=== PATIENT | female | born 1975 | race Caucasian/White ===

== ENCOUNTER 2024-11-18 11:57 | Emergency (ER) | payer BC, SELFPAY ==
[2024-11-18] VITALS (14 sets, daily range): BP systolic 128–158; BP diastolic 62–109; PULSE 48–72; RESP 14–18; TEMP 36.5; O2SAT 97–100
--- NOTE | ~2024-11-18 | XR_ITS ---
Clinical Indication: Syncope PA and lateral views of the chest: Comparison: None Findings: The lungs are clear, without evidence of focal consolidation or pleural effusion. Cardiome diastinal silhouette is within normal limits. Bones and soft tissues are unremarkable. Impression: Normal chest. Reviewed, dictated and finalized at location . Impression: Normal chest.
--- NOTE | 2024-11-18 12:02 | ECG_ITS ---
Test Date: 2024-11-18 12:07:28 Measurements Intervals [place] Rate: 56 P: 20 [place]: 166 QRS: -29 QRSD: 103 T: 10 QT: 335 QTc: 324 Interpretive Statements SINUS BRADYCARDIA WITH SINUS ARRHYTHMIA POOR R WAVE PROGRESSION BORDERLINE T WAVE ABNORMALITY- ANTEROLAT/INF LEADS BORDERLINE ECG No previous ECG available for comparison Electronically Signed On 11-18-2024 12:50:43 CDT by Jackson Steel D.O.
[2024-11-18 12:38] LABS: Basophils Percent Auto 0.4 % (0.2-1.2); Eosinophils Percent Auto 0.4 % (0-4.4); Hematocrit 37.8 % (37.0-47.0); Hemoglobin 12.1 g/dL (12.0-15.0); Immature Granulocyte Absolute 0.02 K/mm3 (0.00-0.031); Immature Granulocyte Percent A 0.3 % (0-0.5); Lymphocytes Percent Auto 23.6 % (18.3-44.2); Mean Corpuscular Hemoglobin 30.1 pg (26-34); Mean Platelet Volume 9.7 fl (7.4-10.4); Monocytes Absolute Auto 0.3 K/mm3 (0.1-0.6); Monocytes Percent Auto 4.3 % (2.6-8.5); Neutrophils Absolute Auto 4.8 K/mm3 (1.3-6.7); Platelet Count Result 244 k/mm3 (150-375); Red Blood Count 4.02 M/mm3 (4.2-5.4); Red Cell Distribution Width 14.4 % (11.5-14.5); White Blood Count 6.8 K/mm3 (4.5-10.0)
[2024-11-18 12:47] LABS: Alanine Aminotransferase 12 U/L (6-35); Albumin Level 4.5 g/dL (3.5-5.1); Alkaline Phosphatase 74 U/L (38-126); Anion Gap 11 mmol/L (4-12); Aspartate Amino Transferase 20 U/L (14-36); Bilirubin,Total 0.3 mg/dL (0.2-1.3); Blood Urea Nitrogen 27 mg/dL (7-17); Calcium 9.5 mg/dL (8.4-10.2); Carbon Dioxide 22 mmol/L (22-30); Chloride 110 mmol/L (98-107); Estimated Glomerular Filt Rate 24; Glucose 101 mg/dL (65-110); Potassium 4.2 mmol/L (3.4-5.0); Sodium 143 mmol/L (137-145)
--- OUTSIDE RECORDS SUMMARY | 2024-11-18 13:15 | XMS_ITS | Encounter Summary ---
Author Organization [facility] Address [address] [place] [address] Phone Care Team Providers Care Trains Dispatcher Supervisor Name Role Phone Derrick Cain MD Primary Care Provider [phone] Reason for Visit * Reason Onset Date Comments Medication Refill 10/29/2024 Encounter Details Date Type Department Care Team (Late st Contact Info) Description 10/29/2024 Refill [facility] - Internal Medicine - [place] [address] [place] [address] Derrick Cain MD [address] [facility] [place] [address] Medication Refill Social History Tobacco Use Types Packs/Day Years Used Date Smoking Tobacco: Never Passive Smoke Exposure: Never Smokeless Tobacco: Never Alcohol Use Standard Drinks/Week Comments Never 0 (1 standard drink = 0.6 oz pur e alcohol) PHQ-2 Answer Date Recorded Total Score - Questions 1-9 0 07/23 Sexually Active Control Partners Comments Yes Comments No Sex and Gender Information Value Date Recorded Sex Assigned at Not on file Legal Sex Female 11:09 AM [employer] Gender Identity Not on file Sexual Orientation Not on file documented as of this encounter Miscellaneous Notes * Telephone Encounter - Jeana Canales RN - 10/29/2024 1:33 PM CDT Medication failed the protocol, provider to review and approve the medication order if appropriate. Requested Prescriptions Pending Prescriptions Disp Refills oxyCODONE-Acetaminophen (PERCOCET) 10-325 MG Tablet 28 Tablet 0 Sig: Take 1 Tablet by mouth 2 times daily as needed for Moderate or more severe pain or Severe pain. Not Delegated - Opioid Combinations Protocol Failed - 10/29/2024 1:33 PM Failed - This refill cannot be delegated Passed - Visit with relevant provider in past 12 months or upcoming 90 days Recent Visits Date Type Provider Dept 10/19/24 Office Visit Derrick Cain MD [facility] 08/18/24 Office Visit [facility] Showing recent visits within past 365 days and meeting all other requirements Future Appointments Date Type Provider Dept 01/13/25 Appointment Derrick Cain MD [facility] Showing future appointments within next 90 days and meeting all other requirements * Telephone Encounter - Rosa Srivastava - 10/29/2024 1:31 PM CDT Med rf Medication - Percocet Phone - [phone] Pharmacy - [facility] documented in this encounter Plan of Treatment Upcoming Encounters Date Type Department Care Team (Late st Contact Info) Description 11/27/2024 9:00 AM CDT Hospital Encounter [facility] [address] [place] [address] Jigar Castellanos MD [address] [address] 11/27/2024 9:00 AM CDT - 11/27/2024 9:30 AM CDT [facility] [address] [place] [address] Jigar Castellanos MD [address] [address] COLONOSCOPY 01/13/2025 8:00 AM CDT Office Visit [facility] - Internal Medicine [facility] [address] [place] [address] Derrick Cain MD [address] [place] [address] Scheduled Procedures Name Priority Associated Diagnoses Date/Ti me COLONOSCOPY SCREENING COLON CANCER 11/27/2024 9:00 AM CDT documented as of this encounter Visit Diagnoses Diagnosis Chronic neck pain Cervicalgia Chronic bilateral low back pain with right-sided sciatica documented in this encounter Additional Health Concerns Assessment Noted Time PHQ-9 Depression Total Score: 0 08/18/19 3:32 PM [employer] documented as of this encounter Care Teams Trains Dispatcher Supervisor Relationship Specialty Start Date End Date Derrick Cain MD [address] [place] [address] PCP - General Internal Medicine 08/18/24 documented as of this encounter
--- OUTSIDE RECORDS SUMMARY | 2024-11-18 13:15 | XMS_ITS | Clinical Summary ---
Author Organization [facility] Address [address] [place] [address] Phone Care Team Providers Care Automotive Salesperson Name Role Phone Derrick Cain MD Primary Care Provider [phone] Allergies Active Allergy Reactions Criticality Noted Date Comments Clonidine Other (see Comments) 03/22/2022 Hydrocodone-Acetaminophen Itching,Other (see Comments) Medium 12/26/2009 Lisinopril Other (see Comments) 03/22/2022 Medications ondansetron (ZOFRAN-ODT) 4 MG TABLET DISPERSIBLE Take 4 mg by mouth every 8 hours as needed for Nausea - 1st line. 4 Active telmisartan (MICARDIS) 40 MG Tablet Take 1 Tablet by mouth daily. 90 Tablet 1 5 Active Additional Information Patient taking differently:40 mg OralEVERY MORNING, Reported on 11/12/2024 naloxone HCl (Narcan) 4 MG/0.1ML Liquid 1 [place] by Nasal route as needed for Opioid Reversal. Administer in one nostril for symptoms of overdose (severe sleepiness, breathing problems, not responsive). Call 911. May repeat 1 spray in alternate nostril in 2-3 minutes if needed. 2 Each 5 Active Rizatriptan Benzoate 10 MG Tablet Take 1 Tablet by mouth once as needed for Headaches. May repeat in 2 hours in needed 10 Tablet 5 Active amLODIPine (NORVASC) 10 MG Tablet Take 10 mg by mouth nightly. 5 038 Active carvedilol (COREG) 12.5 MG Tablet Take 12.5 mg by mouth 2 times daily. 5 026 Active escitalopram (LEXAPRO) 10 MG Tablet Take 1 Tablet by mouth daily. 90 Tablet 5 Active topiramate (TOPAMAX) 100 MG Tablet Take 1 Tablet by mouth every 12 hours. 180 Tablet 5 Active Additional Information Patient taking differently:100 mg Oral EVERY 12 HOURS,Indications: Migraine, Reported on 11/12/2024 gabapentin (NEURONTIN) 300 MG Capsule Take 1 Capsule by mouth 2 times daily. 60 Capsule 3 5 Active Additional Information Patient taking differently:300 mg Oral 2 TIMES DAILY,Indications: Neuropathic Pain, Reported on 11/12/2024 temazepam (RESTORIL) 15 MG CapsuleIndicati ons:Primary insomnia Take 1 Capsule by mouth nightly as needed for Sleep for up to 30 days. 30 Capsule 5 025 Active Additional Information Patient taking differently:15 mg OralNIGHTLY, Reported on 11/12/2024 tiZANidine (ZANAFLEX) 4 MG Tablet Take 1 Tablet by mouth 3 times daily. 90 Tablet 5 Active oxyCODONE-Aceta minophen (PERCOCET) 10-325 MG TabletIndicatio ns:Chronic neck pain,Chronic bilateral low back pain with right-sided sciatica Take 1 Tablet by mouth 2 times daily as needed for Moderate or more severe pain or Severe pain. 28 Tablet 5 Active tiZANidine (ZANAFLEX) 4 MG Tablet Take 1 Tablet by mouth 3 times daily. 90 Tablet 5 025 Discontin ued(Reord er) oxyCODONE-Aceta minophen (PERCOCET) 10-325 MG TabletIndicatio ns:Chronic neck pain,Chronic bilateral low back pain with right-sided sciatica Take 1 Tablet by mouth 2 times daily as needed for Moderate or more severe pain or Severe pain. 14 Tablet 5 025 Discontin ued(Reord er) temazepam (RESTORIL) 15 MG CapsuleIndicati ons:Primary insomnia Take 1 Capsule by mouth nightly as needed for Sleep for up to 30 days. 30 Capsule 5 025 Discontin ued(Reord er) oxyCODONE-Aceta minophen (PERCOCET) 10-325 MG TabletIndicatio ns:Chronic neck pain,Chronic bilateral low back pain with right-sided sciatica Take 1 Tablet by mouth 2 times daily as needed for Moderate or more severe pain or Severe pain. 28 Tablet 025 Discontin ued(Reord er) Active Problems Problem Noted Date Diagnosed Date Chronic left shoulder pain 08/18/2024 Screening for colorectal cancer 08/18/2024 Chronic neck pain 08/18/2024 Overview (08/18/2024): Fusion C4-C6- 2018 Chronic bilateral low back pain with right-sided sciatica 08/18/2024 High risk medication use 08/18/2024 Primary insomnia 08/18/2024 Migraine without aura and wi thout status migrainosus, not intractable 08/18/2024 Essential hypertension, benign 08/18/2024 Dysthymic disorder 08/18/2024 Polycystic kidney disease, autosomal dominant Encounters Date Type Department Care Team Description [facility]/16[facility] [address] [place] [address] Derrick Cain MD Medication Refill 11/12/2024 Travel 11/10/2024 [facility] [address] [place] [address] Jigar Castellanos MD 11/10/2024 [facility] [address] [place] [address] Derrick Cain MD Medication Refill 11/09[facility]24 [facility] [place] [address] Sylvie Luis APRN, ORDER ADMINISTRATOR Procedure; Appointment 10/29/2024 [facility] [address] [place] [address] Derrick Cain MD Medication Refill 10/22/2024 Refill [facility] [address] [place] [address] Derrick Cain MD Medication Refill 10/19/2024 3:30 PM CDT Office Visit [facility] [address] [place] [address] Derrick Cain MD Chronic bilateral low back pain with right-sided sciatica (Primary Dx); Primary insomnia; Screening for colorectal cancer; Chronic left shoulder pain; Polycystic kidney disease, autosomal dominant Discharge Disposition: Discharged to home or Selfcare 10/19/2024 Travel 10/15/2024 Refill [facility] [address] [place] [address] Derrick Cain MD Medication Refill 10/08/2024 Refill [facility] [address] [place] [address] Derrick Cain MD Medication Refill 10/01/2024 Refill [facility] [address] [place] [address] Derrick Cain MD Medication Refill 10/01/2024 Results Follow-Up [facility] [address] [place] [address] Derrick Cain MD XR SHOULDER COMPLETE LEFT 09/24/2024 Results Follow-Up [facility] [address] [place] [address] Derrick Cain MD ERIKA SCREENING SONALI W IMPL DIGITAL W CAD W ANAIS 09/24/2024 Results Follow-Up [facility] [address] [place] [address] Derrick Cain MD URINE DRUG SCREEN 09/23/2024 12:33 PM INDUSTRIAL EDUCATION INSTRUCTOR - 09/23/2024 11:59 PM INDUSTRIAL EDUCATION INSTRUCTOR [facility] [address] [place] [address] Derrick Cain MD Discharge Disposition: Discharged to home or Selfcare 09/23/2024 Travel 09/23/2024 [facility] [address] [address] Derrick Cain MD Medication Refill 09/17/2024 [facility]phone [facility] [address] [address] Derrick Cain MD 09/17/2024 Results Follow-Up [facility] [address] [place] [place] [address] Derrick Cain MD EXTERNAL PAIN REFERRAL 09/17/2024 [facility] [address] [place] [address] Derrick Cain MD Medication Refill 09/16/2024 [facility] [address] [place] [place] [address] Derrick Cain MD Medication Refill 09/15/2024 [facility] [address] [place] [place] [address] Derrick Cain MD 09/15/2024 [facility] [address] [address] Derrick Cain MD Medication Refill 09/09/2024 2:31 PM INDUSTRIAL EDUCATION INSTRUCTOR - 09/09/2024 11:59 PM INDUSTRIAL EDUCATION INSTRUCTOR [facility] [address] [facility] [place] [id number] Derrick Cain MD Discharge Disposition: Discharged to home or Selfcare 09/09/2024 Travel 09/08/2024 [facility] [address] [place] [place] [address] Derrick Cain MD Medication Refill 09/07/2024 Telephone [facility] [address] [address] Derrick Cain MD 09/07/2024 Documentation Only [facility] [address] [place] [place] [address] Derrick Cain MD 09/03/2024 [facility]phone [facility] [address] [place] [place] [address] Derrick Cain MD 09/02/2024 [facility]phone [facility] [address] [place] [place] [address] Derrick Cain MD Medication Refill 09/01/2024 [facility] [address] [place] [place] [address] Derrick Cain MD Medication Refill 08/25/2024 [facility] [address] [place] [place] [address] Derrick Cain MD from Last 3 Months Family History Medical History Relation Name Comments Polycystic Kidney Disease Brother Heart Attack Father Cancer Maternal Grandmother colon Cancer Mother Lung No Known Problems Sister Relation Name Status Comments Brother Alive Father Maternal Grandmother Mother Sister Alive Social History Tobacco Use Types Packs/Day Years Used Date Smoking Tobacco: Never Passive Smoke Exposure: Never Smokeless Tobacco: Never Tobacco Cessation:Counseling Given: No Alcohol Use Standard Drinks/Week Comments Never 0 (1 standard drink = 0.6 oz pur e alcohol) PHQ-2 Answer Date Recorded Total Score - Questions 1-9 0 07/23 Sexually Active Control Partners Comments Yes Comments No Sex and Gender Information Value Date Recorded Sex Assigned at Not on file Legal Sex Female 11:09 AM INDUSTRIAL EDUCATION INSTRUCTOR Gender Identity Not on file Sexual Orientation Not on file Last Filed Vital Signs Vital Sign Reading Time Taken Comments Blood Pressure 122/68 10/19/2024 3:23 PM CDT Pulse 76 10/19/2024 3:23 PM CDT Temperature 36.2 C (97.1 F) 10/19/2024 3:23 PM CDT Respiratory Rate - - Oxygen Saturation 99% 10/19/2024 3:23 PM CDT Inhaled Oxygen Concentration - - Weight 85.3 kg (188 lb) 11/12/2024 9:59 AM CDT Height 165.1 cm (5' 5 ) 11/12/2024 9:59 AM CDT Body Mass Index 31.28 11/12/2024 9:59 AM CDT Plan of Treatment Upcoming Encounters Date Type Department Care Team (Late st Contact Info) Description 11/27/2024 9:00 AM CDT [facility] [address] [place] [address] Jigar Castellanos MD [address] [address] 11/27/2024 9:00 AM CDT - 11/27/2024 9:30 AM CDT [facility] [place] [address] Jigar Castellanos MD [address] [address] COLONOSCOPY 01/13/2025 8:00 AM CDT [facility] [place] [address] [place] [place] [address] Derrick Cain MD [address] [place] [address] [place] [address] Scheduled Procedures Name Priority Associated Diagnoses Date/Ti me COLONOSCOPY SCREENING COLON CANCER 11/27/2024 9:00 AM CDT Health Maintenance Due Date Last Done Comments Hepatitis C Virus (HCV) Screening 1974 TdaP Immunization 1974 Hepatitis B Immunization (1 of 3 - 19+ 3-dose series) 1993 Colonoscopy 2019 Colorectal Cancer Screening 2019 Cologuard 02/01/2024 Immunochemical Fecal Occult Blood 02/01/2024 Pneumococcal Immunization (50+ years) (1 of 1 - PCV) 02/01/2024 Zoster Immunization (1 of 2) 02/01/2024 SARS-COV-2 Immunization ( - season) 2024 09/09/2020, 09/01/2020, 08/09/2020 Influenza Immunization (Season Ended) 2025 04/21/2023, 04/21/2022 Mammogram 09/09/2025 09/09/2024, 12/0 11/2022, 02/16/2021, Additional history exists Respiratory Syncytial Virus (RSV) Immunization (Adult) (1 - 1-dose 75+ series) 2049 Meningococcal Immunization (ACWY) Aged Out No longer eligible based on patient's age to complete this topic Rotavirus Immunization Aged Out No lo nger eligible based on patient's age to complete this topic Procedures Procedure Name Priority Date/Time Associated Diagnosis Comments EXTERNAL PAIN REFERRAL Routine 12:00 AM CDT Chronic neck pain Chronic bilateral low back pain with right-sided sciatica PAIN CONSULT 10/07/2024 12:00 AM CDT EXTERNAL ORTHOPEDIC REFERRAL Routine 09/25/2024 12:00 AM INDUSTRIAL EDUCATION INSTRUCTOR Chronic left shoulder pain XR SHOULDER COMPLETE LEFT Routine 09/23/2024 12:53 PM INDUSTRIAL EDUCATION INSTRUCTOR Chronic left shoulder pain URINE DRUG SCREEN Routine 09/23/2024 12: 35 PM INDUSTRIAL EDUCATION INSTRUCTOR High risk medication use LAB - MISCELLANEOUS 09/16/2024 1 2:00 AM INDUSTRIAL EDUCATION INSTRUCTOR URINALYSIS (UA) RANDOM 5 12:00 AM INDUSTRIAL EDUCATION INSTRUCTOR COMPLETE BLOOD COUNT (CBC) WITH DIFF 09/16/2024 12:00 AM INDUSTRIAL EDUCATION INSTRUCTOR HEPATIC FUNCTION PANEL 5 12:00 AM INDUSTRIAL EDUCATION INSTRUCTOR RENAL FUNCTION PANEL (RFP) 09/16/2024 12:00 AM INDUSTRIAL EDUCATION INSTRUCTOR LAB - MISCELLANEOUS 09/16/2024 1 2:00 AM INDUSTRIAL EDUCATION INSTRUCTOR ERIKA SCREENING SONALI W IMPL DIGITAL W CAD W ANAIS Routine 09/09/2024 3:33 PM INDUSTRIAL EDUCATION INSTRUCTOR Breast cancer screening by mammogram EXTERNAL PAIN REFERRAL Routine 12:00 AM INDUSTRIAL EDUCATION INSTRUCTOR Chronic neck pain Chronic bilateral low back pain with right-sided sciatica from Last 3 Months Results * EXTERNAL PAIN REFERRAL (10/08/2024 12:00 AM CDT) Only the most recent of2 resultswithin the time period is included. 10/08/2024 us Derrick Cain MD OUTPT REFERRALS EXT/INT Fin al Result Performing Organization Address City/[facility]/ZIP Co de Phone Number SCAN * PAIN CONSULT (10/07/2024 12:00 AM CDT) 10/07/2024 us Derrick Cain MD GENERIC SCAN ORDERS CONSULT Final Result Performing Organization Address City/[facility] Co de Phone Number SCAN * EXTERNAL ORTHOPEDIC REFERRAL (09/25/2024 12:00 AM INDUSTRIAL EDUCATION INSTRUCTOR) 09/25/2024 us Derrick Cain MD OUTPT REFERRALS EXT/INT Fin al Result Performing Organization Address City/[facility] de Phone Number SCAN * XR SHOULDER COMPLETE LEFT (09/23/2024 12:53 PM INDUSTRIAL EDUCATION INSTRUCTOR) Anatomical Region Laterality Modality UPPER EXTREMITY, shoulder Left Digita l Radiography 09/30/2024 5:57 PM CDT Impressions 09/30/2024 6:00 PM CDT IMPRESSION: Moderate osteoarthritis AC joint. Narrative 09/30/2024 6:00 PM CDT EXAM DESCRIPTION: XR SHOULDER COMPLETE LEFT REASON FOR STUDY: lt shoulder pain , decrease rom x 5-6 months. Hx. Cervical fusion TECHNIQUE: There are 4 view(s) of the left shoulder COMPARISON: No prior FINDINGS: Normal mineralization. No acute fracture or dislocation. Glenohumeral joint is intact. Moderate osteoarthritis AC joint. Adjacent ribs and soft tissues are unremarkable. Partially visualized is a fusion plate of the lower cervical spine. THIS IS AN ELECTRONICALLY VERIFIED FINAL REPORT 09/30/2024 5:57 PM - Electronically signed by Reyes SWIFT Report ID: [id number] Reading Location: [id number] Procedure Note Reyes Lance MD - 09/30/2024 EXAM DESCRIPTION: XR SHOULDER COMPLETE LEFT REASON FOR STUDY: lt shoulder pain , decrease rom x 5-6 months. Hx. Cervical fusion TECHNIQUE: There are 4 view(s) of the left shoulder COMPARISON: No prior FINDINGS: Normal mineralization. No acute fracture or dislocation. Glenohumeral joint is intact. Moderate osteoarthritis AC joint. Adjacent ribs and soft tissues are unremarkable. Partially visualized is a fusion plate of the lower cervical spine. THIS IS AN ELECTRONICALLY VERIFIED FINAL REPORT 09/30/2024 5:57 PM - Electronically signed by Reyes SWIFT: JAMISON Report ID: [id number] Reading Location: [id number] IMPRESSION: Moderate osteoarthritis AC joint. Derrick Cain MD [facility] [place] DIAGNOSTIC ORDERABLES F inal Result * (ABNORMAL) URINE DRUG SCREEN (09/23/2024 12:35 PM INDUSTRIAL EDUCATION INSTRUCTOR) UR AMPHETAMINE NON DETECTED NON DETECTED 09/23/2024 1:41 PM INDUSTRIAL EDUCATION INSTRUCTOR [facility] Comment: FOR MEDICAL USE ONLY. CUTOFF CONCENTRATION FOR DETECTED RESULT: AMPHETAMINE: 500 NG/ML UR BENZODIAZEPINES NON DETECTED NON DETECTED 09/23/2024 1:41 PM INDUSTRIAL EDUCATION INSTRUCTOR [facility] Comment: FOR MEDICAL USE ONLY. CUTOFF CONCENTRATION FOR DETECTED RESULT: BENZODIAZAPINE: 200 NG/ML UR COCAINE METABOLITE NON DETECTED NON DETECTED 09/23/2024 1:41 PM INDUSTRIAL EDUCATION INSTRUCTOR [facility] Comment: FOR MEDICAL USE ONLY. CUTOFF CONCENTRATION FOR DETECTED RESULT: COCAINE: 150 NG/ML UR OPIATES DETECTED(A) NON DETECTED 09/23/2024 1:41 PM INDUSTRIAL EDUCATION INSTRUCTOR [facility] Comment: FOR MEDICAL USE ONLY. CUTOFF CONCENTRATION FOR DETECTED RESULT: OPIATES: 300 NG/ML UR PHENCYCLIDINE NON DETECTED NON DETECTED 09/23/2024 1:41 PM INDUSTRIAL EDUCATION INSTRUCTOR [facility] Comment: FOR MEDICAL USE ONLY. CUTOFF CONCENTRATION FOR DETECTED RESULT: PCP: 25 NG/ML UR CANNABINOID NON DETECTED NON DETECTED 09/23/2024 1:41 PM INDUSTRIAL EDUCATION INSTRUCTOR [facility] Comment: FOR MEDICAL USE ONLY. CUTOFF CONCENTRATION FOR DETECTED RESULT: THC (MARIJUANA): 50 NG/ML UR BARBITURATE NON DETECTED NON DETECTED 09/23/2024 1:41 PM INDUSTRIAL EDUCATION INSTRUCTOR [facility] Comment: FOR MEDICAL USE ONLY. CUTOFF CONCENTRATION FOR DETECTED RESULT: BARBITUATES: 200 NG/ML UR FENTANYL NON DETECTED NON DETECTED 09/23/2024 1:41 PM INDUSTRIAL EDUCATION INSTRUCTOR [facility] Comment: FOR MEDICAL USE ONLY. CUTOFF CONCENTRATION FOR DETECTED RESULT: FENTANYL: 1.0 NG/ML Urine Non-Phlebotomy Collection / Unknown 09/23/2024 12:35 PM INDUSTRIAL EDUCATION INSTRUCTOR 09/23/2024 1:09 PM INDUSTRIAL EDUCATION INSTRUCTOR us Derrick Cain MD URINE ORDERABLES Final Resu lt [facility] [address] [place] [address] * LAB - MISCELLANEOUS (09/16/2024 12:00 AM INDUSTRIAL EDUCATION INSTRUCTOR) Only the most recent of2 resultswithin the time period is included. 09/16/2024 us Provider Scan CHEMISTRY ORDERABLES Final Resul t Performing Organization Address [facility] de Phone Number SCAN * URINALYSIS (UA) RANDOM (09/16/2024 12:00 AM INDUSTRIAL EDUCATION INSTRUCTOR) 09/16/2024 us Provider Scan URINE ORDERABLES Final Result Performing Organization Address [facility] de Phone Number SCAN * RENAL FUNCTION PANEL (RFP) (09/16/2024 12:00 AM INDUSTRIAL EDUCATION INSTRUCTOR) 09/16/2024 us Provider Scan CHEMISTRY ORDERABLES Final Resul t Performing Organization Address [facility] de Phone Number SCAN * HEPATIC FUNCTION PANEL (09/16/2024 12:00 AM INDUSTRIAL EDUCATION INSTRUCTOR) 09/16/2024 us Provider Scan CHEMISTRY ORDERABLES Final Resul t Performing Organization Address [facility] de Phone Number SCAN * COMPLETE BLOOD COUNT (CBC) WITH DIFF (09/16/2024 12:00 AM INDUSTRIAL EDUCATION INSTRUCTOR) 09/16/2024 us Provider Scan HEMATOLOGY ORDERABLES Final Resu lt Performing Organization Address [facility] de Phone Number SCAN * ERIKA SCREENING SONALI W IMPL DIGITAL W CAD W ANAIS (09/09/2024 3:33 PM INDUSTRIAL EDUCATION INSTRUCTOR) Anatomical Region Laterality Modality breast Bilateral Mammography 09/09/2024 3:20 PM INDUSTRIAL EDUCATION INSTRUCTOR Narrative 09/24/2024 9:36 AM INDUSTRIAL EDUCATION INSTRUCTOR - ERIKA SCREENING SONALI W IMPL DIGITAL W CAD W ANAIS BILATERAL DIGITAL SCREENING MAMMOGRAM 3D/2D WITH CAD WITH MEDIOLATERAL OBLIQUE CRANIOCAUDAL WITH AUGMENTATION: 09/09/2024 The study was acquired using digital technology and interpreted from soft copy. Current study was also evaluated with ICAD version 7.2. 2D digital mammographic views, as well as 3D digital tomosynthesis were performed in the CC and MLO projections. CLINICAL: Routine screening. Patient has no complaints. She has reduced range of motion in left arm. No personal history of cancer. No family history of breast cancer. COMPARISONS: Additional films were requested but not obtained. BREAST TISSUE:There are scattered areas of fibroglandular density. FINDINGS: Bilateral breast implants are present. No significant masses, calcifications, or other findings are seen in either breast. IMPRESSION: NEGATIVE There is no mammographic evidence of malignancy. A 1 year screening mammogram is recommended. A letter will be sent to the patient with these results. The patient will be entered into a reminder system with a target due date of 1 year for her next screening exam. Electronically signed by: Kaleb holman/spencer:09/23/2024 22:44:46 Advanced Manufacturing Associate(s): RT Franklin(R)(M), [facility] letter sent: Normal Exam Reading location: [place] Mammogram BI-RADS: Category 1: Negative Procedure Note Kaleb Carranza MD - 09/24/2024 - ERIKA SCREENING SONALI W IMPL DIGITAL W CAD W ANAIS BILATERAL DIGITAL SCREENING MAMMOGRAM 3D/2D WITH CAD WITH MEDIOLATERAL OBLIQUE CRANIOCAUDAL WITH AUGMENTATION: 09/09/2024 The study was acquired using digital technology and interpreted from soft copy. Current study was also evaluated with ICAD version 7.2. 2D digital mammographic views, as well as 3D digital tomosynthesis were performed in the CC and MLO projections. CLINICAL: Routine screening. Patient has no complaints. She has reduced range of motion in left arm. No personal history of cancer. No family history of breast cancer. COMPARISONS: Additional films were requested but not obtained. BREAST TISSUE:There are scattered areas of fibroglandular density. FINDINGS: Bilateral breast implants are present. No significant masses, calcifications, or other findings are seen in either breast. IMPRESSION: NEGATIVE There is no mammographic evidence of malignancy. A 1 year screening mammogram is recommended. A letter will be sent to the patient with these results. The patient will be entered into a reminder system with a target due date of 1 year for her next screening exam. Electronically signed by: Kaleb holman/spencer:09/23/2024 22:44:46 Advanced Manufacturing Associate(s): Angela Higgins RT(R)(M), [facility] letter sent: Normal Exam Reading location: [place] Mammogram BI-RADS: Category 1: Negative Derrick Cain MD IMG MAMMO ORDERABLES Final Result from Last 3 Months Insurance [facility] Care Teams Automotive Salesperson Relationship Specialty Start Date End Date Derrick Cain MD [address] [place] [address] PCP - General Internal Medicine 08/18/24
--- OUTSIDE RECORDS SUMMARY | 2024-11-18 13:15 | XMS_ITS | Clinical Summary ---
Author Organization [facility] Address [address] [facility] [address] [address] [place] [address] Phone Care Team Providers Care Aviation Technical Systems Specialist Name Role Phone Michelet Centeno MD Primary Care Provider [phone] Allergies Active Allergy Reactions Criticality Noted Date Comments Clonidine Other (see comments) 03/22/2022 Hydrocodone-Acetaminophen Other (see comments) 03/22/2022 Lisinopril Other (see comments) 03/22/2022 Medications gabapentin (NEURONTIN) 300 MG capsule 3 times a day 03/02/2022 Active tiZANidine (ZANAFLEX) 4 MG tablet Take 4 mg by mouth if needed 02/12/2022 Active temazepam (RESTORIL) 30 MG capsule Take 30 mg by mouth at bed time 03/12/2022 Active oxyCODONE-acetam inophen (PERCOCET) 10-325 MG per tablet Take 1 tablet by mouth if needed 11/11/2023 Active topiramate (TOPAMAX) 100 MG tablet Take 100 mg by mouth 1-2 times daily 11/11/2023 Active telmisartan (MICARDIS) 40 MG tablet Take 1 tablet (40 mg total) by mouth 1 (one) time each day 90 tablet 3 11/12/2023 Active amLODIPine (NORVASC) 5 MG tablet Take 1 tablet (5 mg total) by mouth 1 (one) time each day 90 tablet 3 12/12/2023 Active Active Problems Problem Noted Date Diagnosed Date Stage 3b chronic kidney disease 03/22/2022 Hyperparathyroidism due to renal insufficiency 0 03/22/2022 Malignant essential hypertension 03/22/2022 Multiple congenital cysts of kidney 03/22/2022 Mixed anxiety and depressive disorder 03/09/2019 05/14/2023 Overview (05/14/2023): Last Assessment & Plan: On escitalopram oxalate 10 mg at home Plan: Continue escitalopram oxalate 10 mg 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 0 11/25/2018 05/14/2023 Overview (05/14/2023): Last Assessment & Plan: -home meds include telmisartan 80mg daily, chlorthalidone 12.5mg daily, and amlodipine 5mg daily -holding home meds due to soft pressures -considering reducing antihypertensives prior to discharge as patient has lost >100lbs and BP has been better controlled Primary insomnia 11/25/2018 05/14/2023 Overview (05/14/2023): Last Assessment & Plan: Requires multiple medications to aid sleep per patient On temazepam 30 mg at home Plan: Continue temazepam 30 mg PRN Immunizations Immunization Administration Dates Next Due Influenza, Unspecified 04/21/2023,04/21/2022 Pfizer SARS-COV-2 09/09/2020,09/01/2020,08/09/19 21 Pneumococcal, Unspecified 05/14/2023(Deferred: P atient decision) Family History Medical History Relation Comments Hypertension Father Kidney disease Father Cancer Mother Hypertension Mother Kidney disease Paternal Grandfather Relation Status Comments Father Mother Paternal Grandfather Social History Tobacco Use Types Packs/Day Years Used Date Smoking Tobacco: Never Smokeless Tobacco: Never Tobacco Cessation:Counseling Given: No Alcohol Use Standard Drinks/Week Comments No 0 (1 standard drink = 0.6 oz pur e alcohol) Comments Unknown Sex and Gender Information Value Date Recorded Sex Assigned at Not on file Legal Sex Female 5:25 PM EDT Gender Identity Not on file Sexual Orientation Not on file Last Filed Vital Signs Vital Sign Reading Time Taken Comments Blood Pressure 146/97 11/12/2023 1:42 PM CDT Pulse 67 11/12/2023 1:42 PM CDT Temperature - - Respiratory Rate - - Oxygen Saturation - - Inhaled Oxygen Concentration - - Weight 77.8 kg (171 lb 9.6 oz) 11/12/2023 1:42 P M CDT Height 170.2 cm (5' 7 ) 11/12/2023 1:42 PM CDT Body Mass Index 26.88 11/12/2023 1:42 PM CDT Plan of Treatment Health Maintenance Due Date Last Done Comments Breast Cancer Screening 1974 Hepatitis B Vaccine (1 of 3 - 19+ 3-dose series) 1993 Pneumococcal Vaccine: 50+ Ye ars (1 of 2 - PCV) 1993 Colorectal Cancer Screening: Annual FOBT 2023 Colorectal Cancer Screening: Colonoscopy 2023 Colorectal Cancer Screening: Sigmoidoscopy 2023 Influenza Vaccine (Season Ended) 2025 04/21/20, 04/21/2022 [place] [id number] [facility] Care Teams Aviation Technical Systems Specialist Relationship Specialty Start Date End Date Michelet Centeno MD [address] [place] [address], [facility] [address] [place] [address] PCP - General Family Medicine 11/12/23
--- OUTSIDE RECORDS SUMMARY | 2024-11-18 13:15 | XMS_ITS | Encounter Summary ---
Author Organization [facility] Address [address] [place] [address] Phone Care Team Providers Care Plaster Block Layer Name Role Phone Derrick Cain MD Primary Care Provider [phone] Reason for Visit * Reason Onset Date Comments Medication Refill 11/16/2024 Encounter Details Date Type Department Care Team (Late st Contact Info) Description 11/16/2024 Refill [facility] - [place] [address] [place] [address] Derrick Cain MD [address] [place] [address] Medication Refill Social History Tobacco [...] on file Legal Sex Female 11:09 AM ADJUNCT COMMUNICATIONS FACULTY MEMBER Gender Identity Not on file Sexual Orientation Not on file documented as of this encounter Miscellaneous Notes * Telephone Encounter - Rosa Srivastava - 11/16/2024 10:33 AM CDT Med rf Medication - Temazepam Phone - [phone] Pharmacy - [facility] documented in this encounter Plan of Treatment Upcoming Encounters Date Type Department Care Team (Late st Contact Info) Description 11/27/2024 9:00 AM CDT [facility] 1 [facility] [address] [place] [address] Jigar Castellanos MD 2 [facility] [address] [place] [address] 11/27/2024 9:00 AM CDT - 11/27/2024 9:30 AM CDT Surgery [facility] 1 [facility] [address] Jigar Castellanos MD 2 [facility] [address] [place] [address] COLONOSCOPY 01/13/2025 8:00 AM CDT Office Visit [facility] - Internal Medicine [facility] [address] [place] [address] Derrick Cain MD [address] [place] [address] Scheduled Procedures Name Priority Associated Diagnoses Date/Ti me COLONOSCOPY SCREENING COLON CANCER 11/27/2024 9:00 AM CDT documented as of this encounter Visit Diagnoses Diagnosis Primary insomnia Persistent disorder of initiating or maintaining sleep documented in this encounter Additional Health Concerns Assessment Noted Time PHQ-9 Depression Total Score: 0 08/18/19 3:32 PM ADJUNCT COMMUNICATIONS FACULTY MEMBER documented as of this encounter Care Teams Plaster Block Layer Relationship Specialty Start Date End Date Derrick Cain MD [address] [place] [address] PCP - General Internal Medicine 08/18/24 documented as of this encounter
--- OUTSIDE RECORDS SUMMARY | 2024-11-18 13:15 | XMS_ITS | Encounter Summary ---
Author Organization [facility] Address [address] [place] [address] Phone Care Team Providers Care Technical Expert Name Role Phone Derrick Cain MD Primary Care Provider [phone] Encounter Details Date Type Department Care Team (Late Contact Info) Description 09/17/2024 Results Follow-Up [facility] - Internal Medicine [facility] [address] [facility] [address] Derrick Cain MD [address] [place] [address] EXTERNAL PAIN REFERRAL Social History Tobacco Use Types Packs/Day Years Used Date Smoking Tobacco: Never Smokeless Tobacco: Never PHQ-2 Answer Date Recorded Total Score - Questions 1-9 0 07/23 Comments No Sex and Gender Information Value Date Recorded Sex Assigned at Not on file Legal Sex Female 11:09 AM MANAGER TELEMETRY Gender Identity Not on file Sexual Orientation Not on file documented as of this encounter Plan of Treatment Upcoming Encounters Date Type Department Care Team (Late st Contact Info) Description 11/27/2024 9:00 AM CDT [facility] 1 [place] [id number] Jigar Castellanos MD 2 [facility] [address] [address] 11/27/2024 9:00 AM CDT - 11/27/2024 9:30 AM CDT [facility] [address] [place] [address] Jigar Castellanos MD [address] [facility] [facility] [address] COLONOSCOPY 01/13/2025 8:00 AM CDT Office Visit [facility] - Internal Medicine - [place] [address] [place] [address] Derrick Cain MD [address] [address] Scheduled Procedures Name Priority Associated Diagnoses Date/Ti me COLONOSCOPY SCREENING COLON CANCER 11/27/2024 9:00 AM CDT documented as of this encounter Visit Diagnoses Not on filedocumented in this encounter Additional Health Concerns Assessment Noted Time PHQ-9 Depression Total Score: 0 08/18/19 3:32 PM MANAGER TELEMETRY documented as of this encounter Care Teams Technical Expert Relationship Specialty Start Date End Date Derrick Cain MD [address] [place] [address] PCP - General Internal Medicine 08/18/24 documented as of this encounter
--- OUTSIDE RECORDS SUMMARY | 2024-11-18 13:16 | XMS_ITS | Encounter Summary ---
Author Organization [facility] Address [address] [place] [address] Phone Care Team Providers Care Keypunch Operator Name Role Phone Derrick Cain MD Primary Care Provider [phone] Encounter Details Date Type Department Care Team (Late Contact Info) Description 09/24/2024 Results Follow-Up [facility] - Internal Medicine [facility] [address] [place] [address] Derrick Cain MD [address] [place] [address] URINE DRUG SCREEN Social History Tobacco Use Types Packs/Day Years Used Date Smoking Tobacco: Never Smokeless Tobacco: Never PHQ-2 Answer Date Recorded Total Score - Questions 1-9 0 07/23 Comments No Sex and Gender Information Value Date Recorded Sex Assigned at Not on file Legal Sex Female 11:09 AM SANITATION ENGINEER Gender Identity Not on file Sexual Orientation Not on file documented as of this encounter Plan of Treatment Upcoming Encounters Date Type Department Care Team (Late st Contact Info) Description 11/27/2024 9:00 AM CDT [facility] 1 [place] [id number] Jigar Castellanos MD 2 [facility] [address] [address] 11/27/2024 9:00 AM CDT - 11/27/2024 9:30 AM CDT [facility] [address] [address] Jigar Castellanos MD [address] [facility] [address] COLONOSCOPY 01/13/2025 8:00 AM CDT Office Visit [facility] - Internal Medicine - [place] [address] [place] [address] Derrick Cain MD [address] [place] [address] Scheduled Procedures Name Priority Associated Diagnoses Date/Ti me COLONOSCOPY SCREENING COLON CANCER 11/27/2024 9:00 AM CDT documented as of this encounter Visit Diagnoses Not on filedocumented in this encounter Additional Health Concerns Assessment Noted Time PHQ-9 Depression Total Score: 0 08/18/19 3:32 PM SANITATION ENGINEER documented as of this encounter Care Teams Keypunch Operator Relationship Specialty Start Date End Date Derrick Cain MD [address] [place] [address] PCP - General Internal Medicine 08/18/24 documented as of this encounter
[2024-11-18 15:23] LABS: Add Urine Microscopic? YES; Appearance Urine Clear (Clear); Bacteria Urine 1+ /hpf; Bilirubin Urine Negative (Negative); Blood Urine Negative (Negative); Color Urine Yellow (Yellow); Glucose Urine UA Negative (Negative); Ketones Urine Negative (Negative); Leukocyte Esterase Ur 1+ LEU/UL (Negative); Nitrate Urine Negative (Negative); Non Pathogenic Casts 0-2; Protein Urine Trace mg/dL (Negative); RBC Urine 0-2 /hpf (0-2); Specific Grav Ur 1.012 (1.001-1.035); Squamous Epithelial Cell Urine Occasional /hpf (Few); Urobilinogen Urine 0.2 mg/dL (<2.0); pH Urine 6.5 (5.0-9.0)
[2024-11-18] MEDS: SODIUM CHLORIDE 0.9% IV 1,000 ML 999 ML IV CONT ×2 (15:26→16:52)
--- OUTSIDE RECORDS SUMMARY | 2024-11-18 16:13 | XMS_ITS | Clinical Summary ---
Author Organization [facility] Address [address] [facility] [address] [place] [address] Phone Care Team Providers Care Television News Anchor Name Role Phone Michelet Centeno MD Primary Care Provider [phone] Allergies Active Allergy Reactions Criticality Noted Date [...] Vaccine (Season Ended) 2025 04/21/20, 04/21/2022 [place] [id number] [facility] Care Teams Television News Anchor Relationship Specialty Start Date End Date Michelet Centeno MD [address] [place] [address], [facility] [address] [address] [address] PCP - General Family Medicine 11/12/23
--- OUTSIDE RECORDS SUMMARY | 2024-11-18 16:13 | XMS_ITS | Encounter Summary ---
Author Organization [facility] Address [address] [place] [address] Phone Care Team Providers Care Pantry Chef Name Role Phone Derrick Cain MD Primary Care Provider [phone] Reason for Visit * Reason Onset Date Comments Medication Refill 11/16/2024 Encounter Details Date Type Department Care Team (Late st Contact Info) Description 11/16/2024 Refill [facility] - [place] [address] [facility] [place] [place] [address] Derrick Cain MD [address] [place] [address] Medication Refill Social History Tobacco [...] on file Legal Sex Female 11:09 AM SENIOR FIELD SERVICE ENGINEER Gender Identity Not on file Sexual Orientation Not on file documented as of this encounter Miscellaneous Notes * Telephone Encounter - Rosa Srivastava - 11/16/2024 10:33 AM CDT Med rf Medication - Temazepam Phone - [phone] Pharmacy - [facility] documented in this encounter Plan of Treatment Upcoming Encounters Date Type Department Care Team (Late st Contact Info) Description 11/27/2024 9:00 AM CDT [facility] 1 [facility] [address] [place] [address] Jigar Castellanos MD 2 [facility] [address] [place] [address] 11/27/2024 9:00 AM CDT - 11/27/2024 9:30 AM CDT [facility] 1 [facility] [place] [address] Jigar Castellanos MD 2 [facility] [address] [place] [address] COLONOSCOPY 01/13/2025 8:00 AM CDT Office Visit [facility] - Internal Medicine [facility] [address] [place] [address] Derrick Cain MD [address] [place] [address] Scheduled Procedures Name Priority Associated Diagnoses Date/Ti me COLONOSCOPY SCREENING COLON CANCER 11/27/2024 9:00 AM CDT documented as of this encounter Visit Diagnoses Diagnosis Primary insomnia Persistent disorder of initiating or maintaining sleep documented in this encounter Additional Health Concerns Assessment Noted Time PHQ-9 Depression Total Score: 0 08/18/19 3:32 PM SENIOR FIELD SERVICE ENGINEER documented as of this encounter Care Teams Pantry Chef Relationship Specialty Start Date End Date Derrick Cain MD [address] [place] [address] PCP - General Internal Medicine 08/18/24 documented as of this encounter
--- OUTSIDE RECORDS SUMMARY | 2024-11-18 16:13 | XMS_ITS | Clinical Summary ---
Author Organization [facility] Address [address] [place] [address] Phone Care Team Providers Care Overhead Distribution Engineer Name Role Phone Derrick Cain MD Primary Care Provider [phone] Allergies Active Allergy Reactions Criticality Noted Date [...] naloxone HCl (Narcan) 4 MG/0.1ML Liquid 1 [place] by Nasal route as needed for Opioid [...] Type Department Care Team Description 11/16/2024 [facility] [address] [place] [address] Derrcik Cain MD Medication Refill 11/12/2024 Travel 11/10/2024 [facility]phone [facility] [address] [place] [address] Jigar Castellanos MD 11/10/2024 [facility] [address] [facility] [place] [address] Derrick Cain MD Medication Refill 11/09/2024 [facility]phone [facility] [place] [address] Sylvie Luis APRN, EPOXY SPECIALIST Procedure; Appointment 10/29/2024 [facility] Internal [facility] [address] [place] [address] Derrick Cain MD Medication Refill 10/22/2024 Refill [facility] [address] [facility] [place] [address] Derrick Cain MD Medication Refill 10/19/2024 3:30 PM CDT Office Visit [facility] [address] [facility] [place] [address] Derrick Cain MD Chronic bilateral low back pain with right-sided sciatica (Primary Dx); Primary insomnia; Screening for colorectal cancer; Chronic left shoulder pain; Polycystic kidney disease, autosomal dominant Discharge Disposition: Discharged to home or Selfcare 10/19/2024 Travel 10/15/2024 Refill [facility] [address] [facility] [place] [address] Derrick Cain MD Medication Refill 10/08/2024 Refill [facility] [address] [facility] [place] [address] Derrick Cain MD Medication Refill 10/01/2024 Refill [facility] [address] [place] [address] Derrick Cain MD Medication Refill 10/01/2024 Results Follow-Up [facility] [address] [place] [address] Derrick Cain MD XR SHOULDER COMPLETE LEFT 09/24/2024 Results Follow-Up [facility] [address] [place] [address] Derrick Cain MD ERIKA SCREENING SONALI W IMPL DIGITAL W CAD W ANAIS 09/24/2024 Results Follow-Up [facility] [address] [place] [address] Derrick Cain MD URINE DRUG SCREEN 09/23/2024 12:33 PM IT ARCHITECT - 09/23/2024 11:59 PM IT ARCHITECT [facility] 1 [place] [address] Derrick Cain MD Discharge Disposition: Discharged to home or Selfcare 09/23/2024 Travel 09/23/2024 [facility] [address] [place] [address] Derrick Cain MD Medication Refill 09/17/2024 Telephone [facility] [address] [place] [address] Derrick Cain MD 09/17/2024 Results Follow-Up [facility] [address] [place], [place] [address] Derrick Cain MD EXTERNAL PAIN REFERRAL 09/17/2024 Refill [facility] [address] [place], [place] [address] Derrick Cain MD Medication Refill 09/16/2024 Telephone [facility] [address] [place] [address] Derrick Cain MD Medication Refill 09/15/2024 Telephone [facility] [address] [place], [place] [address] Derrick Cain MD 09/15/2024 Refill [facility] [address] [place] [address] Derrick Cain MD Medication Refill 09/09/2024 2:31 PM IT ARCHITECT - 09/09/2024 11:59 PM IT ARCHITECT [facility] 1 [facility] [place] [phone] Derrick Cain MD Discharge Disposition: Discharged to home or Selfcare 09/09/2024 Travel 09/08/2024 Refill [facility] [address] [place] [address] Derrick Cain MD Medication Refill 09/07/2024 Telephone [facility] [address] [place] [address] Derrick Cain MD 09/07/2024 Documentation Only [facility] [address] [place], [place] [address] Derrick Cain MD 09/03/2024 Telephone [facility] [address] [place] [address] Derrick Cain MD 09/02/2024 Telephone [facility] [address] [place] [address] Derrick Cain MD Medication Refill 09/01/2024 Refill [facility] [address] [place] [address] Derrick Cain MD Medication Refill 08/25/2024 Refill [facility] [address] [place], [place] [address] Derrick Cain MD from Last 3 [...] on file Legal Sex Female 11:09 AM IT ARCHITECT Gender Identity Not on file Sexual Orientation [...] Description 11/27/2024 9:00 AM CDT Hospital [facility] 1 [place] [address] Jigar Castellanos MD [address] [address] 11/27/2024 9:00 AM CDT - 11/27/2024 9:30 AM CDT [facility] [place] [address] Jigar Castellanos MD [address] [address] COLONOSCOPY 01/13/2025 8:00 AM CDT [facility] [place] [address] [place], [place] [phone] Derrick Cain MD [address] [place] [address] Scheduled Procedures Name Priority Associated Diagnoses Date/Ti [...] EXTERNAL ORTHOPEDIC REFERRAL Routine 09/25/2024 12:00 AM IT ARCHITECT Chronic left shoulder pain XR SHOULDER COMPLETE LEFT Routine 09/23/2024 12:53 PM IT ARCHITECT Chronic left shoulder pain URINE DRUG SCREEN Routine 09/23/2024 12: 35 PM IT ARCHITECT High risk medication use LAB - MISCELLANEOUS 09/16/2024 1 2:00 AM IT ARCHITECT URINALYSIS (UA) RANDOM 5 12:00 AM IT ARCHITECT COMPLETE BLOOD COUNT (CBC) WITH DIFF 09/16/2024 12:00 AM IT ARCHITECT HEPATIC FUNCTION PANEL 5 12:00 AM IT ARCHITECT RENAL FUNCTION PANEL (RFP) 09/16/2024 12:00 AM IT ARCHITECT LAB - MISCELLANEOUS 09/16/2024 1 2:00 AM IT ARCHITECT ERIKA SCREENING SONALI W IMPL DIGITAL W CAD W ANAIS Routine 09/09/2024 3:33 PM IT ARCHITECT Breast cancer screening by mammogram EXTERNAL PAIN REFERRAL Routine 12:00 AM IT ARCHITECT Chronic neck pain Chronic bilateral low back pain with right-sided sciatica from Last 3 Months Results * EXTERNAL PAIN REFERRAL (10/08/2024 12:00 AM CDT) Only the most recent of2 resultswithin the time period is included. 10/08/2024 us Derrick Cain MD OUTPT REFERRALS EXT/INT Fin al Result Performing Organization Address City/[facility]/ZIP Co de Phone Number SCAN * PAIN CONSULT (10/07/2024 12:00 AM CDT) 10/07/2024 us Derrick Cain MD GENERIC SCAN ORDERS CONSULT Final Result Performing Organization Address City/[facility] Co de Phone Number SCAN * EXTERNAL ORTHOPEDIC REFERRAL (09/25/2024 12:00 AM IT ARCHITECT) 09/25/2024 us Derrick Cain MD OUTPT REFERRALS EXT/INT Fin al Result Performing Organization Address City/[facility] de Phone Number SCAN * XR SHOULDER COMPLETE LEFT (09/23/2024 12:53 PM IT ARCHITECT) Anatomical Region Laterality Modality UPPER EXTREMITY, shoulder [...] Electronically signed by Reyes SWIFT Report ID: [id number] Reading Location: [id number] Procedure Note Reyes Lance MD - 09/30/2024 [...] signed by Reyes SWIFT: JAMISON Report ID: [id number] Reading Location: [id number] IMPRESSION: Moderate osteoarthritis AC joint. Derrick Cain MD [facility] DIAGNOSTIC ORDERABLES F inal Result * (ABNORMAL) URINE DRUG SCREEN (09/23/2024 12:35 PM IT ARCHITECT) UR AMPHETAMINE NON DETECTED NON DETECTED 09/23/2024 1:41 PM IT ARCHITECT [facility] Comment: FOR MEDICAL USE ONLY. CUTOFF CONCENTRATION FOR DETECTED RESULT: AMPHETAMINE: 500 NG/ML UR BENZODIAZEPINES NON DETECTED NON DETECTED 09/23/2024 1:41 PM IT ARCHITECT [facility] Comment: FOR MEDICAL USE ONLY. CUTOFF CONCENTRATION FOR DETECTED RESULT: BENZODIAZAPINE: 200 NG/ML UR COCAINE METABOLITE NON DETECTED NON DETECTED 09/23/2024 1:41 PM IT ARCHITECT [facility] Comment: FOR MEDICAL USE ONLY. CUTOFF CONCENTRATION FOR DETECTED RESULT: COCAINE: 150 NG/ML UR OPIATES DETECTED(A) NON DETECTED 09/23/2024 1:41 PM IT ARCHITECT [facility] Comment: FOR MEDICAL USE ONLY. CUTOFF CONCENTRATION FOR DETECTED RESULT: OPIATES: 300 NG/ML UR PHENCYCLIDINE NON DETECTED NON DETECTED 09/23/2024 1:41 PM IT ARCHITECT [facility] Comment: FOR MEDICAL USE ONLY. CUTOFF CONCENTRATION FOR DETECTED RESULT: PCP: 25 NG/ML UR CANNABINOID NON DETECTED NON DETECTED 09/23/2024 1:41 PM IT ARCHITECT [facility] Comment: FOR MEDICAL USE ONLY. CUTOFF CONCENTRATION FOR DETECTED RESULT: THC (MARIJUANA): 50 NG/ML UR BARBITURATE NON DETECTED NON DETECTED 09/23/2024 1:41 PM IT ARCHITECT [facility] Comment: FOR MEDICAL USE ONLY. CUTOFF CONCENTRATION FOR DETECTED RESULT: BARBITUATES: 200 NG/ML UR FENTANYL NON DETECTED NON DETECTED 09/23/2024 1:41 PM IT ARCHITECT [facility] Comment: FOR MEDICAL USE ONLY. CUTOFF CONCENTRATION FOR DETECTED RESULT: FENTANYL: 1.0 NG/ML Urine Non-Phlebotomy Collection / Unknown 09/23/2024 12:35 PM IT ARCHITECT 09/23/2024 1:09 PM IT ARCHITECT us Derrick Cain MD URINE ORDERABLES Final Resu lt [facility] [address] [place] [address] * LAB - MISCELLANEOUS (09/16/2024 12:00 AM IT ARCHITECT) Only the most recent of2 resultswithin the time period is included. 09/16/2024 us Provider Scan CHEMISTRY ORDERABLES Final Resul t Performing Organization Address [facility] de Phone Number SCAN * URINALYSIS (UA) RANDOM (09/16/2024 12:00 AM IT ARCHITECT) 09/16/2024 us Provider Scan URINE ORDERABLES Final Result Performing Organization Address [facility] de Phone Number SCAN * RENAL FUNCTION PANEL (RFP) (09/16/2024 12:00 AM IT ARCHITECT) 09/16/2024 us Provider Scan CHEMISTRY ORDERABLES Final Resul t Performing Organization Address [facility] de Phone Number SCAN * HEPATIC FUNCTION PANEL (09/16/2024 12:00 AM IT ARCHITECT) 09/16/2024 us Provider Scan CHEMISTRY ORDERABLES Final Resul t Performing Organization Address [facility] de Phone Number SCAN * COMPLETE BLOOD COUNT (CBC) WITH DIFF (09/16/2024 12:00 AM IT ARCHITECT) 09/16/2024 us Provider Scan HEMATOLOGY ORDERABLES Final Resu lt Performing Organization Address [facility] de Phone Number SCAN * ERIKA SCREENING SONALI W IMPL DIGITAL W CAD W ANAIS (09/09/2024 3:33 PM IT ARCHITECT) Anatomical Region Laterality Modality breast Bilateral Mammography 09/09/2024 3:20 PM IT ARCHITECT Narrative 09/24/2024 9:36 AM IT ARCHITECT - ERIKA SCREENING SONALI W IMPL DIGITAL [...] exam. Electronically signed by: Kaleb holman/spencer:09/23/2024 22:44:46 [employer](s): RT Franklin(R)(M), [facility] letter sent: Normal Exam Reading [...] exam. Electronically signed by: Kaleb holman/spencer:09/23/2024 22:44:46 [employer](s): Angela Higgins RT(R)(M), [facility] letter sent: Normal Exam Reading location: [place] Mammogram BI-RADS: Category 1: Negative Derrick Cain MD IMG MAMMO ORDERABLES Final Result from Last 3 Months Insurance [facility] Care Teams Overhead Distribution Engineer Relationship Specialty Start Date End Date Derrick Cain MD [address] [place] [address] PCP - General Internal Medicine 08/18/24
--- OUTSIDE RECORDS SUMMARY | 2024-11-18 16:13 | XMS_ITS | Encounter Summary ---
Author Organization [facility] Address [address] [place] [address] Phone Care Team Providers Care Pie Chef Name Role Phone Derrick Cain MD Primary Care Provider [phone] Encounter Details Date Type Department Care Team (Late Contact Info) Description 09/17/2024 Results Follow-Up [facility] Medical [facility] - Internal Medicine [facility] [address] [facility] [address] Derrick Cain MD [address] [place] [address] EXTERNAL PAIN REFERRAL Social History Tobacco Use Types Packs/Day Years Used Date Smoking Tobacco: Never Smokeless Tobacco: Never PHQ-2 Answer Date Recorded Total Score - Questions 1-9 0 07/23 Comments No Sex and Gender Information Value Date Recorded Sex Assigned at Not on file Legal Sex 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 [address] COLONOSCOPY 01/13/2025 8:00 AM CDT Office Visit [facility] Group - Internal Medicine - [place] [address] [place], [place] [address] Derrick Cain MD [address] [place] [address] Scheduled Procedures Name Priority Associated Diagnoses Date/Ti me COLONOSCOPY SCREENING COLON CANCER 11/27/2024 9:00 AM CDT documented as of this encounter Visit Diagnoses Not on filedocumented in this encounter Additional Health Concerns Assessment Noted Time PHQ-9 Depression Total Score: 0 08/18/19 3:32 PM TRACTOR OPERATOR BATTERY documented as of this encounter Care Teams Pie Chef Relationship Specialty Start Date End Date Derrick Cain MD [address] [place] [address] PCP - General Internal Medicine 08/18/24 documented as of this encounter
--- OUTSIDE RECORDS SUMMARY | 2024-11-18 16:13 | XMS_ITS | Encounter Summary ---
Author Organization [facility] Address [address] 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 Gender Identity Not on file Sexual Orientation [...] Dept 10/19/24 Office Visit [facility] [place] 08/18/24 Office Visit [facility] [place] Showing recent visits within past 365 days and meeting all other requirements Future Appointments Date Type Provider Dept 01/13/25 Appointment Derrick Cain MD [facility] [place] Showing future appointments within next 90 days and meeting all other requirements * Telephone Encounter - Rosa Srivastava - 10/29/2024 1:31 PM CDT Med rf Medication - Percocet Phone - [phone] Pharmacy - [facility] documented in this encounter Plan of Treatment Upcoming Encounters Date Type Department Care Team (Late st Contact Info) Description 11/27/2024 9:00 AM CDT Hospital Encounter [facility] Gi Lab Periop 1 [place] [address] Jigar Castellanos MD [address] [address] 11/27/2024 9:00 AM CDT - 11/27/2024 9:30 AM CDT [facility] 1 [place] [address] Jigar Castellanos MD [address] [address] COLONOSCOPY 01/13/2025 8:00 AM CDT [facility] [address] [place] [address] Derrick Cain MD [address] [place] [address] Scheduled Procedures Name Priority Associated Diagnoses Date/Ti me COLONOSCOPY SCREENING COLON CANCER 11/27/2024 9:00 AM CDT documented as of this encounter Visit Diagnoses Diagnosis Chronic neck pain Cervicalgia Chronic bilateral low back pain with right-sided sciatica documented in this encounter Additional Health Concerns Assessment Noted Time PHQ-9 Depression Total Score: 0 08/18/19 3:32 PM ICE CREAM FREEZER ASSISTANT documented as of this encounter Care Teams Book Reviewer Relationship Specialty Start Date End Date Derrick Cain MD [address] [place] [address] PCP - General Internal Medicine 08/18/24 documented as of this encounter
--- OUTSIDE RECORDS SUMMARY | 2024-11-18 16:13 | XMS_ITS | Encounter Summary ---
Author Organization [facility] Address [address] [place] [address] Phone Care Team Providers Care Bag Worker Name Role Phone Derrick Cain MD Primary Care Provider [phone] Encounter Details Date Type Department Care Team (Late Contact Info) Description 09/24/2024 Results Follow-Up [facility] Medical [facility] - Internal Medicine [facility] [address] [place] [address] Derrick Cain MD [address] [place] [address] URINE DRUG SCREEN Social History Tobacco Use Types Packs/Day Years Used Date Smoking Tobacco: Never Smokeless Tobacco: Never PHQ-2 Answer Date Recorded Total Score - Questions 1-9 0 07/23 Comments No Sex and Gender Information Value Date Recorded Sex Assigned at Not on file Legal Sex Female 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 [address] [address] 11/27/2024 9:00 AM CDT - 11/27/2024 9:30 AM CDT [facility] [address] [place] [address] Jigar Castellanos MD [address] [address] COLONOSCOPY 01/13/2025 8:00 AM CDT Office Visit [facility] Medical Group - Internal Medicine - [place] [address] [place], [place] [address] Derrick Cain MD [address] [place] [address] Scheduled Procedures Name Priority Associated Diagnoses Date/Ti me COLONOSCOPY SCREENING COLON CANCER 11/27/2024 9:00 AM CDT documented as of this encounter Visit Diagnoses Not on filedocumented in this encounter Additional Health Concerns Assessment Noted Time PHQ-9 Depression Total Score: 0 08/18/19 3:32 PM CUSTOMER SERVICE VOICE documented as of this encounter Care Teams Bag Worker Relationship Specialty Start Date End Date Derrick Cain MD [address] [place] [address] PCP - General Internal Medicine 08/18/24 documented as of this encounter
[2024-11-18] MEDS: oxyCODONE/ACETAMINOPHEN (*CRX) 5-325 MG TABLET 1 TABLET PO (16:20)
--- NOTE | 2024-11-18 16:40 | ED.GENADULT ---
HPI - General Adult General Chief complaint: Syncope Stated complaint: syncope Time Seen by Provider: 11/18/24 14:34 History of Present Illness HPI narrative: Patient is a 49-year-old female with polycystic kidney disease who presents ER after having syncope. She got up out of bed and got lightheaded and passed out on the ground. Takes amlodipine and telmisartan. She sees a specialist in [facility] [place]. No fevers or chills or sweats. Denies urinary symptoms. Outpatient labs show creatinine typically around 2.1. No chest pain or chest pressure. No fevers chills or sweats. No palpitations. Related Data Allergies Allergy/AdvReac Type Severity Reaction Status Date / Time acetaminophen (From [place]) Allergy Itching Verified 11/18/24 14:11 hydrocodone (From [place]) Allergy Itching Verified 11/18/24 14:11 Review of Systems Review of Systems: All systems reviewed & are unremarkable except as noted in HPI and below Constitutional: Constitutional: Reports no additional constitutional complaints Cardiovascular: Cardiovascular: Reports no additional cardiovascular complaints Respiratory: Respiratory: Reports no additional respiratory complaints Gastrointestinal: Gastrointestinal: Reports no additional gastrointestinal complaints Neurologic: Reports system reviewed and no additional complaints, except as documented PMFSH Past Medical History Medical History (Updated 11/18/24 @ 18:42 by Mehdi Villareal MD) Hypertension Chronic kidney disease, stage 4 (severe) Polycystic kidney disease Social History Social History Smoking status: Never smoker Do You Feel Safe in your Home?: Yes Lack of Transportation: No Lack of Food: Never True Current Housing: I Have Housing Concerned About Future Housing: No Difficulty Paying Gas/Electric Bills: No Difficulty Paying for Meds: No Currently Unemployed: No Education: High School Diploma/GED Difficulty w/ Childcare or Family Care: No Exam Narrative: GENERAL: Well-appearing, well-nourished, and in no acute distress. HEAD: Normocephalic, atraumatic. EYES: PERRL and EOMI. ENT: Mucous membranes moist. TMs normal bilaterally. CHEST: Clear to auscultation. No respiratory distress. HEART: Bradycardic regular. Normal peripheral pulses. ABDOMEN: Soft, nontender, nondistended. EXTREMITIES: Normal range of motion. No edema. SKIN: Warm, dry, no rash. NEURO: No facial droop. Clear speech. Normal thought content. Moves all extremities without issue. Alert and oriented x3. PSYCH: Normal mood and affect. Course Course Emergency Course: Patient reports that she is feeling improved after receiving meclizine IV fluid. She is able ambulate. She reports that she has had dizziness chronically that occurs intermittently because there to be off balance and that meclizine seems to be helping her. She feels comfortable going home and would like some antinausea medicine and dizziness medicine. Vital Signs Vital signs: Vital Signs Temperature 97.7 F 11/18/24 11:59 Pulse Rate 57 L 11/18/24 11:59 Respiratory Rate 16 11/18/24 11:59 Blood Pressure 145/96 H 11/18/24 11:59 Pulse Oximetry 99 11/18/24 11:59 Temperature 97.7 F 11/18/24 11:59 Pulse Rate 57 L 11/18/24 17:51 Respiratory Rate 18 11/18/24 17:38 Blood Pressure 147/99 H 11/18/24 17:51 Pulse Oximetry 98 11/18/24 17:38 Medical Decision Making Vital Signs Vital Signs: Vital Signs Temperature 97.7 F 11/18/24 11:59 Pulse Rate 57 L 11/18/24 11:59 Respiratory Rate 16 11/18/24 11:59 Blood Pressure 145/96 H 11/18/24 11:59 Pulse Oximetry 99 11/18/24 11:59 Temperature 97.7 F 11/18/24 11:59 Pulse Rate 57 L 11/18/24 17:51 Respiratory Rate 18 11/18/24 17:38 Blood Pressure 147/99 H 11/18/24 17:51 Pulse Oximetry 98 11/18/24 17:38 Lab Data 11/18/24 12:11 11/18/24 12:11 Labs: Lab Results 11/18/24 11/18/24 Range/Units 12:11 15:12 WBC 6.8 (4.5-10.0) K/mm3 RBC 4.02 L (4.2-5.4) M/mm3 Hgb 12.1 (12.0-15.0) g/dL Hct 37.8 (37.0-47.0) % MCV 94.0 (80-100) fl MCH 30.1 (26-34) pg MCHC 32.0 (32-36) g/dl RDW 14.4 (11.5-14.5) % Plt Count 244 (150-375) k/mm3 MPV 9.7 (7.4-10.4) fl Immature Gran % (Auto) 0.3 (0-0.5) % Neut % (Auto) 71.0 (45.5-73.1) % Lymph % (Auto) 23.6 (18.3-44.2) % [place] % (Auto) 4.3 (2.6-8.5) % Eos % (Auto) 0.4 (0-4.4) % Baso % (Auto) 0.4 (0.2-1.2) % Lymph # (Auto) 1.60 (0.9-3.2) K/mm3 Stephenson # (Auto) 0.3 (0.1-0.6) K/mm3 Eos # (Auto) 0.0 (0-0.3) K/mm3 Baso # (Auto) 0.0 (0.0-0.1) K/mm3 Abs Immat Gran (auto) 0.02 (0.00-0.031) K/mm3 Absolute Neuts (auto) 4.8 (1.3-6.7) K/mm3 Absolute Nucleated RBC 0.000 (0.0-0.012) K/mm3 Nucleated RBC % 0.0 (0.0-0.2) % Sodium 143 (137-145) mmol/L Potassium 4.2 (3.4-5.0) mmol/L Chloride 110 H (98-107) mmol/L Carbon Dioxide 22 (22-30) mmol/L Anion Gap 11 (4-12) mmol/L BUN 27 H (7-17) mg/dL Creatinine 2.17 H (0.7-1.0) mg/dL Estim Creat Clear Calc Not Reportable Estimated GFR 24 L (59 - ) Glucose 101 (65-110) mg/dL Calcium 9.5 (8.4-10.2) mg/dL Total Bilirubin 0.3 (0.2-1.3) mg/dL AST 20 (14-36) U/L ALT 12 (6-35) U/L Alkaline Phosphatase 74 (38-126) U/L Total Protein 8.0 (6.3-8.2) g/dL Albumin 4.5 (3.5-5.1) g/dL Urine Color Yellow (Yellow) Urine Appearance Clear (Clear) Urine pH 6.5 (5.0-9.0) Ur Specific [place] 1.012 (1.001-1.035) Urine Protein Trace (Negative) mg/dL Urine Glucose (UA) Negative (Negative) mg/dL Urine Ketones Negative (Negative) mg/dL Ur Blood (Man) Negative (Negative) Urine Nitrate Negative (Negative) Urine Bilirubin Negative (Negative) Urine Urobilinogen 0.2 (<2.0) mg/dL Leukocyte Esterase Rfl 1+ H (Negative) MENDY/UL Urine RBC 0-2 (0-2) /hpf Urine WBC 6-10 H (0-3) /hpf Ur Squamous Epith Cells Occasional (Few) /hpf Urine Bacteria 1+ H /hpf Urine Casts 0-2 Imaging Data Radiologist's impression: ITS Impressions Chest X-Ray 11/18/24 13:47 Impression: Normal chest. ECG Data EKG #1: ECG completion date: 11/18/24 ECG completion time: 12:07 EKG Interpretation: bradycardia (56), sinus rhythm, non-specific ST changes, normal QRS and normal QT Discharge Plan Discharge Clinical Impression: Syncope, UTI (urinary tract infection), Vertigo Patient Disposition: Home Condition: Stable Instructions: Urinary Tract Infection in Women (ED), Vertigo (ED), Syncope (ED) Additional Instructions: Return the ER if you have chest pain with shortness of breath, you cannot keep down food or water, you have recurrent syncope, or you have additional concerns. Patient Language: Belgian Prescriptions: New ondansetron 4 mg tablet,disintegrating 4 mg PO Q6H PRN (Reason: nausea and vomiting) Qty: 10 0RF meclizine 25 mg tablet 25 mg PO TID PRN (Reason: dizziness) Qty: 20 0RF cephalexin 500 mg capsule 500 mg PO Q12H Qty: 10 0RF No Action prednisone 5 mg tablet 5 mg PO DAILY Qty: 55 0RF Rx Instructions: Take 10 day 1, 9 day 2, 8 day 3, 7 day 4 6 day 5, 5 day 6, 4 day 7, 3 day 8, 2 day 9, 1 day 10. Follow-up/Referrals: Ant,Derrick Lentz MD [Primary Care Provider] - 1 Week
[2024-11-18] MEDS: MECLIZINE HCL 25 MG TABLET PO (16:51)
== END 2024-11-18 19:01 | disposition home or self-care (01) ==
PROVIDERS: Emergency Provider Emergency Medicine; PCP Internal Medicine
DX: N39.0 Urinary tract infection, site not specified (principal); R55 Syncope and collapse; R42 Dizziness and giddiness; I12.9 Hypertensive chronic kidney disease with stage 1 through stage 4 chronic kidney disease, or unspecified chronic kidney disease; N18.4 Chronic kidney disease, stage 4 (severe); Q61.3 Polycystic kidney, unspecified; R00.1 Bradycardia, unspecified; R94.31 Abnormal electrocardiogram [ECG] [EKG]
CPT/HCPCS: 36415; 71046; 80053; 81001; 85025; 87077; 87086; 87186; 93005; 96360; 96361; 99284; A9270; J7030

== ENCOUNTER 2024-12-04 11:12 | Outpatient (CLI) | payer BC, SELFPAY ==
--- NOTE | ~2024-12-04 | MR_ITS ---
MRI of the left shoulder Technique: Axial proton-density fat-sat images, coronal proton density fat-sat and T2 fat-sat images, and sagittal T1-weighted and T2 fat-sat images were acquired. Clinical History: Adhesive capsulitis Findings: There is moderate AC joint degenerative change, with minimal subacromial spur. Coracoclavic ular, coracoacromial, and coracohumeral ligaments are intact. Supraspinatus and infraspinatus tendons are intact, without partial or full-thickness tear. Subscapul madi tendon is intact. There is minimal rotator cuff tendinosis. Tendon of long head of the biceps is intact. Labral evaluation is suboptimal due to motion artifact. Questionable tiny labral tear at the superior aspect versus artifact. Inferior glenohumeral ligament is mildly thickened and hyperintense with mild surrounding soft tissue edema. There are small glenohumeral joint effusion with mild chondral malacia the humeral head. No f luid distention of the subacromial/subdeltoid bursa. No muscle atrophy or edema. Impression: Findings compatible with adhesive capsulitis. Mild rotator cuff tendinosis. Moderate AC joint degenerative change. Questionable focal superior labral tear versus artifact. Reviewed, dictated and finalized at location . Impression: Findings compatible with adhesive capsulitis. Mild rotator cuff tendinosis. Moderate AC joint degenerative change. Questionable focal superior labral tear versus artifact.
--- OUTSIDE RECORDS SUMMARY | 2024-12-04 11:21 | XMS_ITS | Patient Health Record ---
Author Organization [facility] Address [address] [place] [address] Kerrie Montenegro LILIANA [address] Care Team Providers Care Cook Station Name Role Phone MD BENNIE, LEELA Primary Care Provider Jamey Valle Unavailable [phone] RAMANA ADAMS CHARLES Unavailable Unavailable ALLERGIES Allergen (clinical drug ingredient) Drug/Non Drug Allergy documented on EMR Reaction Allergy Type Onset Date Status clonidine Clonidine Unknown Drug Allergy Active hydrocodone Hydrocodone itching Drug Allergy Act farnaz lisinopril Lisinopril Unknown Drug Allergy Activ e REASON FOR REFERRAL No Information MEDICATIONS Medication SIG (Take, Route, Frequency, Duration) Notes Start Date End Date Status Telmisartan 40 MG TAKE 1 TABLET BY KORY TH DAILY Oral for 90 Active tiZANidine HCl 4 MG TAKE 1 TABLET BY KORY TH THREE TIMES DAILY Oral for 30 Active amLODIPine Besylate 5 MG TAKE 1 TABLET B Y MOUTH DAILY Oral for 90 Active Escitalopram Oxalate 10 MG 1 tablet Oral Once a day Active Topiramate 100 MG TAKE 1 TABLET BY KORY TH EVERY 12 HOURS Oral for 11 Active Temazepam 15 MG TAKE 1 CAPSULE BY MO UTH EVERY NIGHT NEEDED FOR SLEEP Oral for 30 Active oxyCODONE-Acetaminophen 10-325 MG TAKE 1 TABLET BY MOUTH TWICE DAILY NEEDED FOR MODERATE OR MORE SEVERE PAIN OR SEVERE PAIN Oral for 7 Active SOCIAL HISTORY Tobacco Use: Social History Observation Description Date Details (start date - stop date) Never Smoker NA - NA Sex Assigned At : Social History Observation Description Sex Assigned At Unknown Tobacco Use/Smoking Question Answer Notes Are you a nonsmoker PROBLEMS Problem Type ICD Code Onset Dates Problem Status W/U Status Risk SNOMED Code Notes Problem Fear of injections and transfusions (F40.231) Active confirmed Fear of medical treatment (210083596) Problem Pain in left shoulder (M25.512) Active confirmed Shoulder joint pain (036880240) Problem Spondylosis without myelopathy or radiculopathy, lumbar region (M47.816) Active confirmed Lumbosacral spondylosis without myelopathy (70644465) Problem Radiculopathy, cervical region (M54.12) Active confirmed Cervical radiculopathy (70574835) Problem 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 (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) use of opiate analgesic (Z79.891) Active confirmed High risk drug monitoring status (733700187) Problem Lumbar radiculopathy (M54.16) Active confirmed Lumbar radiculopathy (942203286) Problem Other intervertebral disc degeneration, 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) Active confirmed VITAL SIGNS Heart Rate 63 /min 10/08/2024 Respiratory Rate 16 /min 10/08/2024 Blood pressure diastolic 104 mm Hg 10/08/2024 Height 5 ft 5 in in 10/08/2024 Blood pressure systolic 161 mm Hg 10/08/2024 Weight 199 lbs 10/08/2024 BMI 33.11 kg/m2 10/08/2024 Encounters Encounter Location Date Provider Diagnosis [facility] [address] [place] [address] 10/08/2024 Jamey Vyas Lumbar radiculopathy M54.16 ; Other intervertebral disc degeneration, lumbar region with discogenic back pain and lower extremity pain M51.362 ; Spondylosis without myelopathy or radiculopathy, lumbar region M47.816 ; Radiculopathy, cervical region M54.12 ; Pain in left shoulder M25.512 ; FPC (current) use of opiate analgesic Z79.891 and Fear of injections and transfusions F40.231 ASSESSMENTS Encounter Date Diagnosis Assessment Notes Treatment Notes Treatment Clinical Notes 10/08/2024 Lumbar radiculopathy (ICD-10 - M54.16) The patient was given an order for physical therapy. 10/08/2024 Other intervertebral disc degeneration, lumbar region with discogenic back pain and lower extremity pain (ICD-10 - M51.362) 10/08/2024 Spondylosis without myelopathy or radiculopathy, lumbar region (ICD-10 - M47.816) 10/08/2024 Radiculopathy, cervical region (ICD-10 - M54.12) 10/08/2024 Pain in left shoulde r (ICD-10 - M25.512) 10/08/2024 FPC (current) use of opiate analgesic (ICD-10 - Z79.891) The patient was given the contact information of pain specialists in the area who offer chronic opioid medication management. 10/08/2024 Fear of injections and transfusions (ICD-10 - F40.231) 10/08/[address] Adams for your kind referral and for involving me in the care of this patient. PLAN OF TREATMENT No Information Insurance Providers Payer Name Payer Address Payer Phone Subscriber Number Group Number Insured Name Patient Relationship to Insured Coverage Start Date Coverage End Date [facility] [address] [place] [address] [id number] October Self - patient is the insured MEDICAL (GENERAL) HISTORY Medical History History ICD Code Insomnia Migraine Hypertension Polycystic kidney disease Depression Anxiety Surgical History Surgery Date(Month/Year) C5-7 ACDF 2016
--- OUTSIDE RECORDS SUMMARY | 2024-12-04 11:21 | XMS_ITS | Encounter Summary ---
Author Organization [facility] Address [address] [place] [address] Phone Care Team Providers Care Senior Consulting Manager Name Role Phone Derrick Cain MD Primary Care Provider [phone] Reason for Visit * Reason Onset Date Comments Medication Refill 12/04/2024 Encounter Details Date Type Department Care Team (Late st Contact Info) Description 12/04/2024 Telephone [facility] - Internal Medicine - [place] [address] [place] [address] Derrick Cain MD [address] [facility] [address] [address] Medication Refill Social History Tobacco [...] on file Legal Sex Female 11:09 AM EXPORT COORDINATOR Gender Identity Not on file Sexual Orientation Not on file documented as of this encounter Miscellaneous Notes * Telephone Encounter - Rosa Srivastava - 12/04/2024 11:04 AM CDT Med rf Medication - Percoset Phone - [phone] [facility] documented in this encounter Plan of Treatment Upcoming Encounters Date Type Department Care Team (Late st Contact Info) Description 01/13/2025 8:00 AM CDT Office Visit [facility] - Internal Medicine - [place] [address] [place] [address] Derrick Cain MD [address] [place] [address] documented as of this encounter Visit Diagnoses Not on filedocumented in this encounter Additional Health Concerns Assessment Noted Time PHQ-9 Depression Total Score: 0 08/18/19 3:32 PM EXPORT COORDINATOR documented as of this encounter Care Teams Senior Consulting Manager Relationship Specialty Start Date End Date Derrick Cain MD [address] [place] [address] PCP - General Internal Medicine 08/18/24 documented as of this encounter
--- OUTSIDE RECORDS SUMMARY | 2024-12-04 11:21 | XMS_ITS | Clinical Summary ---
Author Organization [facility] Address [address] [place] [address] Care Team Providers Care Natural Resource Officer Name Role Phone Derrick Cain MD Primary Care Provider [phone] Judith Hernandez RN Unavailable Unavailabl e Allergies Active Allergy Reactions Criticality Noted Date Comments Clonidine Other (See comments) 03/22/2022 Hydrocodone-Acetaminophen Itching,Other (See comments) Medium 12/26/2009 Lisinopril Other (See comments) 03/22/2022 Medications tiZANidine (ZANAFLEX) 4 mg tablet Take 1 tablet (4 mg total) by mouth 3 (three) times a day 2 Active oxyCODONE-acetamino phen (PERCOCET) 10-325 mg per tablet Take 1 tablet by mouth 2 (two) times a day as needed 4 Active telmisartan (MICARDIS) 40 mg tablet Take 1 tablet (40 mg total) by mouth daily Active amLODIPine (NORVASC) 10 mg tablet Take 1 tablet (10 mg total) by mouth nightly 5 06/25/20 38 Active temazepam (RESTORIL) 15 mg capsule Take 1 capsule (15 mg total) by mouth nightly as needed Active escitalopram (LEXAPRO) 10 mg tablet Take 1 tablet (10 mg total) by mouth daily 0 Active topiramate (TOPAMAX) 100 mg tablet Take 1 tablet (100 mg total) by mouth every 12 (twelve) hours 4 Active rizatriptan (MAXALT) 10 mg tablet Take 1 tablet (10 mg total) by mouth daily as needed 5 Active ondansetron ODT (ZOFRAN-ODT) 4 mg disintegrating tablet Take 1 tablet (4 mg total) by mouth every 8 (eight) hours as needed 4 Active meclizine (ANTIVERT) 25 mg tablet 5 Active cephalexin (KEFLEX) 500 mg capsule 5 Active Hospital, Clinic, or Other Facility Administered Medication Ordered Dose Route Frequency Start Date End Date Status perflutren protein-a (OPTISON) 3 mL in sodium chloride 0.9% 8 mL syringe 1 - 8 mL IV Once in imaging 11/27/2024 Active Active Problems No known active problems Encounters Date Type Department Care Team Description 12/02/2024 Telephone [facility] Transplant Kidney [address] [facility] [address] [phone] [place] [address] Paula Rogers Referral - Kidney Txp 12/01/2024 Telephone [facility] Transplant Kidney [address] [facility] [address] -[phone] [place] [address] Elizabeth Carolina Referral - Kidney Txp 11/27/2024 3:00 PM CDT Ancillary Procedure [facility] [address] [place] [address] Syncope and collapse; Essential hypertension; Sinus bradycardia; Dizziness 11/25/2024 Documentation [facility] Transplant Kidney [address] [facility] [address] [phone] [place] [address] Paula Rogers 11/20/2024 2:15 PM CDT Ancillary Procedure [facility] [address] [facility] [place] [address] Syncope and collapse; Essential hypertension; Sinus bradycardia; Dizziness 11/20/2024 1:30 PM CDT Office Visit [facility] Cardiology [address] [place] [address] Medical Office Building [address] [place] [address] Ilsa Sesay MD Syncope and collapse (Primary Dx); Essential hypertension; Sinus bradycardia; Dizziness 11/20/2024 Results Follow-Up [facility] Cardiology [address] [facility] Medical Office Building [address] [place] [address] Ilsa Sesay MD 11/19/2024 Telephone [facility] Cardiology [address] [facility] 8th [place] [address] [place] [address] Yomaira French 11/12/2024 Telephone [facility] Transplant Kidney [address] [facility] [address] [phone] [place] [address] Fang Sow Referral - Kidney Txp 11/03/2024 Documentation [facility] Transplant Kidney [address] [facility] [address] [phone] [place] [address] Ortbanna, Elizabeth 11/03/2024 Telephone [facility] Transplant Kidney [address] [facility] [address] [phone] [place] [address] Ortbals, Elizabeth Referral - Kidney Txp from Last 3 Months Social History Tobacco Use Types Packs/Day Years Used Date Smoking Tobacco: Never Passive Smoke Exposure: Never Smokeless Tobacco: Never Tobacco Cessation:Counseling Given: Not Answered Comments Unknown Sex and Gender Information Value Date Recorded Sex Assigned at Not on file Legal Sex Female 3:53 PM CDT Gender Identity Not on file Sexual Orientation Not on file Obstetrics History Last Filed Vital Signs Vital Sign Reading Time Taken Comments Blood Pressure 116/70 11/20/2024 1:41 PM CDT Pulse 55 11/20/2024 1:41 PM CDT Temperature - - Respiratory Rate - - Oxygen Saturation 98% 11/20/2024 1:41 PM CDT Inhaled Oxygen Concentration - - Weight 83.9 kg (185 lb) 11/20/2024 1:32 PM CDT Height 165.1 cm (5' 5 ) 11/20/2024 1:32 PM CDT Body Mass Index 30.79 11/20/2024 1:32 PM CDT Plan of Treatment Health Maintenance Due Date Last Done Comments Cervical Cancer Screening 1975 Colon Cancer Screening-Colonoscopy 1975 Depression Screening 1975 Hepatitis C Screening 1975 DTaP/Tdap/Td Vaccine (1 - Tdap) 1985 Hepatitis B Screening 02/01/1992 Regular Well Visit/Exam 18-64 02/01/1992 Zoster Vaccine (1 of 2) 02/01/2024 Covid-19 Vaccine (4 - 2023-2 5 season) 2024 09/09/2020, 09/01/2020, 08/09/2020 Influenza Vaccine (Season Ended) 2025 04/21/2023, 04/21/2022 Breast Cancer Screening-Mammogram 09/09/2025 09/09/2024, 09/09/2024, 06/25/2023 Pneumococcal vaccine <65 Aged Out No longer eligible based on patient's age to complete this topic Procedures Procedure Name Priority Date/Time Associated Diagnosis Comments TRANSTHORACIC ECHO (TTE) COMPLETE W DOPPLER/CF WO CONTRAST Routine 11/27/2024 4:02 PM CDT Syncope and collapse Essential hypertension Sinus bradycardia Dizziness ECG 12-LEAD Routine 11/20/2024 1:32 PM CDT Essential hypertension Syncope and collapse from Last 3 Months Results * TRANSTHORACIC ECHO (TTE) COMPLETE W DOPPLER/CF WO CONTRAST (11/27/2024 4:02 PM CDT) EF Mod BP 61 % CONS SCIMAGE Anatomical Region Laterality Modality Ultrasound 11/27/2024 3:12 PM CDT Narrative 11/30/2024 3:47 AM CDT Heart [facility] Cardiac Diagnostic Lab [address], [address] [place] [address] Transthoracic Echocardiographic Report Patient Name: October : 1975 (49y 9m) Gender: F Study Date: 11/27/2024 03:12:58 PM Ht(Inch): 65 Wt(Lb): 184.97 BSA: 1.96 Command Center Analyst: RADHA Uribe Location: [facility] Order Provider: ILSA SESAY Heart Rate: 50 BMI: 30.78 BP: 126 / 80 Ref Provider: ILSA SESAY PROCEDURES: Echocardiographic Report: Transthoracic complete echo with strain imaging, 2D, spectral and tissue Doppler, color flow Doppler, M-mode. INDICATIONS: R55 Syncope and collapse, I10 Essential (primary) hypertension, R00.1 Bradycardia, unspecified, and R42 Dizziness and giddiness. CONCLUSIONS: 1. Normal left ventricular size based on volume index. Concentric LV remodeling. Normal left ventricular systolic function. The Ejection Fraction (Koch's) is measured at 61 %. The average global longitudinal strain is normal. 2. Normal right ventricular size. Normal right ventricular systolic function. ATTESTATION: I have personally reviewed and interpreted this study without fellow or resident. - DISCLAIMER: The study images and the final report will be retained in the patient chart by the Echo Laboratory for the legally required time period. This chart constitutes the legal record of any testing performed. FINDINGS: Study Quality: Good. Left Ventricle: Normal left ventricular size based on volume index. Concentric LV remodeling. Normal left ventricular systolic function. The Ejection Fraction (Koch's) is measured at 61 %. The average global longitudinal strain is normal. The LV global strain is: -22.0 %. Right Ventricle: Normal right ventricular size. Normal right ventricular systolic function. Left Atrium: The left atrium is normal in size. Right Atrium: The right atrium is normal in size. Mitral Valve: Normal mitral valve structure. No mitral regurgitation. No stenosis present. Aortic Valve: Normal trileaflet aortic valve. No aortic regurgitation. No aortic valve stenosis. Aortic valve dimensionless index is 0.80. Tricuspid Valve: Normal tricuspid valve structure. No tricuspid regurgitation. No tricuspid valve stenosis. Pulmonic Valve: Normal pulmonic valve structure. No pulmonic regurgitation. No pulmonic valve stenosis present. Pericardium: Normal pericardium without pericardial effusion. Aorta: Mild aortic root dilation at sinuses of Valsalva. Normal aortic root size when indexed. The ascending aorta is normal in size when indexed. PASP: Normal estimated pulmonary artery systolic pressure. Rhythm: Normal Sinus rhythm was seen during the study. MEASUREMENTS: 2D/MM Value Range Doppler Value Range LVIDd 2D 4.56 cm [ 3.80 - 5.20 ] AV Peak Adama 1.6 m/s [ 1.0 - 1.7 ] LVIDs 2D 2.93 cm [ 2.20 - 3.50 ] AV Peak PG 10.24 mmHg IVSd 2D 1.02 cm [ 0.60 - 0.90 ] AV Mean PG 5 mmHg LVPWd 2D 1.08 cm [ 0.60 - 0.90 ] AV VTI 31.4 cm LV Thickness Ratio 0.9 LVOT Peak Adama 1.3 m/s [ 0.7 - 1.1 ] LV FS 2D 35.76 % [ 27.00 - 45.00 ] LVOT Peak PG 6.76 mmHg LV Mass 2D 170.52 g LVOT Mean PG 3 mmHg LV Mass Index 2D 87.00 g/m2 LVOT VTI 25.0 cm RWT 0.47 LVOT Diam 2.18 cm EDV Mod BP 74.98 ml [ 46.00 - 106.00 ] MAC VTI 2.97 cm2 LV EDV Index 38.26 ml/m2 LVOT/AV VTI 0.80 - Dimensionless index (DVI) ESV Mod BP 29.60 ml [ 14.00 - 42.00 ] MV E Peak Adama 0.7 m/s [ 0.6 - 1.3 ] EF Mod BP 61 % [ 54 - 74 ] MV A Peak Adama 0.5 m/s [ 1.0 - 1.2 ] LV GLS -22.0 % [ -25.0 - -18.0 ] MV E/A 1.2 ratio [ 0.8 - 1.5 ] LA Length 4C 5.34 cm MV Decel Time 175.97 msec [ 104.00 - 258.00 ] LA Length 2C 5.02 cm Med E` Adama 8.3 cm/sec [ 8.0 - 25.0 ] LA Volume BP 45.49 ml Lat E` Adama 12.4 cm/sec [ 10.0 - 25.0 ] LA Volume Index 23.21 ml/m2 [ 16.00 - 34.00 ] Average E/E` 6.76 RV Base Dimen 2D 2.9 cm [ 2.5 - 4.2 ] RV S` 16.92 cm/sec TAPSE 2.12 cm [ 1.71 - 5.00 ] PV Peak Adama 0.8 m/s [ 0.4 - 0.8 ] RA Volume 29.56 ml PV Peak PG 2.56 mmHg RA Volume Index 15.08 ml/m2 AoR Diam 2D 3.31 cm [ 2.70 - 3.70 ] Ao Root Index 1.69 cm/m2 [ 1.00 - 2.00 ] Asc Ao Diam 2D 3.34 cm Asc Ao Index 1.70 cm/m2 Electronically Signed By: Raúl Casillas MD 11/30/2024 3:47:01 AM CDT Procedure Note Raúl Casillas MD - 11/30/2024 [facility] Cardiac Diagnostic Lab [address] , [address] [place] [address] Transthoracic Echocardiographic Report Patient Name: October : 1975 (49y 9m) Gender: F Study Date: 11/27/2024 03:12:58 PM Ht(Inch): 65 Wt(Lb): 184.97 BSA: 1.96 Command Center Analyst: RADHA Uribe Location: [facility] Order Provider:ILSA SESAY Heart Rate: 50 BMI: 30.78 BP: 126 / 80 Ref Provider: ILSA SESAY PROCEDURES: Echocardiographic Report: Transthoracic complete echo with strain imaging,2D, spectral and tissue Doppler, color flow Doppler, M-mode. INDICATIONS: R55 Syncope and collapse, I10 Essential (primary) hypertension, R00.1Bradycardia, unspecified, and R42 Dizziness and giddiness. CONCLUSIONS: 1. Normal left ventricular size based on volume index. Concentric LVremodeling. Normal left ventricular systolic function. The Ejection Fraction (Koch's) ismeasured at 61 %. The average global longitudinal strain is normal. 2. Normal right ventricular size. Normal right ventricular systolicfunction. ATTESTATION: I have personally reviewed and interpreted this study without fellow orresident. - DISCLAIMER: The study images and the final report will be retained in the patientchart by the Echo Laboratory for the legally required time period. This chart constitutesthe legal record of any testing performed. FINDINGS: Study Quality: Good. Left Ventricle: Normal left ventricular size based on volume index.Concentric LV remodeling. Normal left ventricular systolic function. The EjectionFraction (Koch's) is measured at 61 %. The average global longitudinal strain is normal. TheLV global strain is: -22.0 %. Right Ventricle: Normal right ventricular size. Normal right ventricularsystolic function. Left Atrium: The left atrium is normal in size. Right Atrium: The right atrium is normal in size. Mitral Valve: Normal mitral valve structure. No mitral regurgitation. Nostenosis present. Aortic Valve: Normal trileaflet aortic valve. No aortic regurgitation. Noaortic valve stenosis. Aortic valve dimensionless index is 0.80. Tricuspid Valve: Normal tricuspid valve structure. No tricuspidregurgitation. No tricuspid valve stenosis. Pulmonic Valve: Normal pulmonic valve structure. No pulmonicregurgitation. No pulmonic valve stenosis present. Pericardium: Normal pericardium without pericardial effusion. Aorta: Mild aortic root dilation at sinuses of Valsalva. Normal aorticroot size when indexed. The ascending aorta is normal in size when indexed. PASP: Normal estimated pulmonary artery systolic pressure. Rhythm: Normal Sinus rhythm was seen during the study. MEASUREMENTS: 2D/MM Value Range DopplerValue Range LVIDd 2D 4.56 cm [ 3.80 - 5.20 ] AV Peak Vel1.6 m/s [ 1.0 - 1.7 ] LVIDs 2D 2.93 cm [ 2.20 - 3.50 ] AV Peak PG10.24 mmHg IVSd 2D 1.02 cm [ 0.60 - 0.90 ] AV Mean PG5 mmHg LVPWd 2D 1.08 cm [ 0.60 - 0.90 ] AV VTI31.4 cm LV Thickness Ratio 0.9 LVOT Peak Vel1.3 m/s [ 0.7 - 1.1 ] LV FS 2D 35.76 % [ 27.00 - 45.00 ] LVOT Peak PG6.76 mmHg LV Mass 2D 170.52 g LVOT Mean PG3 mmHg LV Mass Index 2D 87.00 g/m2 LVOT VTI25.0 cm RWT 0.47 LVOT Diam2.18 cm EDV Mod BP 74.98 ml [ 46.00 - 106.00 ] MAC VTI2.97 cm2 LV EDV Index 38.26 ml/m2 LVOT/AV VTI0.80 - Dimensionless index (DVI) ESV Mod BP 29.60 ml [ 14.00 - 42.00 ] MV E Peak Vel0.7 m/s [ 0.6 - 1.3 ] EF Mod BP 61 % [ 54 - 74 ] MV A Peak Vel0.5 m/s [ 1.0 - 1.2 ] LV GLS -22.0 % [ -25.0 - -18.0 ] MV E/A1.2 ratio [ 0.8 - 1.5 ] LA Length 4C 5.34 cm MV Decel Ppaj562.97 msec [ 104.00 - 258.00 ] LA Length 2C 5.02 cm Med E` Vel8.3 cm/sec [ 8.0 - 25.0 ] LA Volume BP 45.49 ml Lat E` Vel12.4 cm/sec [ 10.0 - 25.0 ] LA Volume Index 23.21 ml/m2 [ 16.00 - 34.00 ] Average E/E`6.76 RV Base Dimen 2D 2.9 cm [ 2.5 - 4.2 ] RV S`16.92 cm/sec TAPSE 2.12 cm [ 1.71 - 5.00 ] PV Peak Vel0.8 m/s [ 0.4 - 0.8 ] RA Volume 29.56 ml PV Peak PG2.56 mmHg RA Volume Index15.08 ml/m2 AoR Diam 2D 3.31 cm [ 2.70 - 3.70 ] Ao Root Index 1.69 cm/m2 [ 1.00 - 2.00 ] Asc Ao Diam 2D3.34 cm Asc Ao Index1.70 cm/m2 Electronically Signed By: Raúl Casillas MD 11/30/2024 3:47:01 AM CDT us Ilsa Sesay MD CV ECHO PROCEDURES Final Result * ECG 12 lead (11/20/2024 1:32 PM CDT) us Ilsa Sesay MD ECG ORDERABLES Edited Re sult - Final from Last 3 Months Insurance [employer] [address] [id number] Care Teams Natural Resource Officer Relationship Specialty Start Date End Date Derrick Cain MD [address] [address] PCP - General Internal Medicine 11/20/24 Yearout, Judith Hollins archives directorSoccer Player 12/02/24 estrella cardona Secondary Kidney Coordinator 12/02/24
--- OUTSIDE RECORDS SUMMARY | 2024-12-04 11:21 | XMS_ITS | Encounter Summary ---
Author Organization [facility] Address [address] [place] [address] Phone Care Team Providers Care Hotel Sales Manager Name Role Phone Derrick Cain MD Primary Care Provider [phone] Encounter Details Date Type Department Care Team (Late Contact Info) Description 11/30/2024 Results Follow-Up [facility] Adult Pediatric Inpatient Virtual [address] [place] [id number] Jigar Castellanos MD [address] [address] Pathology Surgical Social History Tobacco Use Types Packs/Day Years [...] on file Legal Sex Female 11:09 AM HORSESHOER Gender Identity Not on file Sexual Orientation Not on file documented as of this encounter Plan of Treatment Upcoming Encounters Date Type Department Care Team (Late st Contact Info) Description 01/13/2025 8:00 AM CDT Office Visit [facility] - Internal Medicine - [place] [address] [place] [address] Derrick Cain MD [address] [place] [address] documented as of this encounter Visit Diagnoses Not on filedocumented in this encounter Additional Health Concerns Assessment Noted Time PHQ-9 Depression Total Score: 0 08/18/19 3:32 PM HORSESHOER documented as of this encounter Care Teams Hotel Sales Manager Relationship Specialty Start Date End Date Derrick Cain MD [address] [address] PCP - General Internal Medicine 08/18/24 documented as of this encounter
--- OUTSIDE RECORDS SUMMARY | 2024-12-04 11:21 | XMS_ITS | Encounter Summary ---
Author Organization [facility] Address [address] [place] [address] Phone Care Team Providers Care Assistant Cook Name Role Phone No, Physician Primary Care Provider [phone] Derrick Cain MD Primary Care Provider [phone] Judith Hernandez RN Unavailable Unavailabl e Encounter Details Date Type Department Care Team (Late st Contact Info) Description 11/19/2024 Telephone [facility] Cardiology [address] [facility] 8th [place] [address] [place] [address] Yomaira French Social History Tobacco Use Types Packs/Day Years Used Date Smoking Tobacco: Never Assessed Comments Unknown Sex and Gender Information Value Date Recorded Sex Assigned at Not on file Legal Sex Female 3:53 PM CDT Gender Identity Not on file Sexual Orientation Not on file documented as of this encounter Miscellaneous Notes * Telephone Encounter - Liliana Herron - 11/19/2024 4:20 PM CDT Requested records from [facility] * Telephone Encounter - Yomaira French - 11/19/2024 4:11 PM CDT CARDIOLOGY NEW PATIENT RECORDS REVIEW Insurance Information [employer] Insurance [employer] Insurance Provider: ANSLEY Group number: Diagnosis and Referring Provider Information (Check for Referrals in Epic) Cardiac Diagnosis: HTN/ Low HR/ Syncope Referring Provider: SELF Referring Provider Specialty: Referring Provider Phone: Current/Former Airplane Patroller (if different from referring provider): N/A Current/Former Airplane Patroller Phone: Questions to Determine Placement for Specialty Clinics Cardiology-Oncology Have you ever been diagnosed with cancer or had treatment: no When: Where: Maternal- Cardiology (Females Only) Are you or had a baby in the past year: no Sports Medicine Do you regularly exercise or play sports: no Are the symptoms or concerns associated with acviity: no Hypertension (If yes, must be referred by MD) Are you a hemodialysis or peritoneal dialysis patient: no Referring provider: Cardiology History Questions Have you been hospitalized for cardiac issues: no When: Where: Have you had an echo: no When: Where: Have you had a stress test: no When: Where: Have you had an EKG: yes When: November 18 2024 Where: [facility] in [place], [place] Have you had a holter monitor: no Have you had cardiac imaging(CT or MRI): no Testing/imaging: When: Where: Have you had any procedures (cath, CABG, cardioversion, or ablation): no When: Where: Have you had a sleep study done: no When: Where: Do you have an implantable cardiac device: no Type: Student Support Counselor: When: Where: Appointment Details Date: 11/23 Time: 3:30 pm Location: [facility] Provider: Dr. Lewis documented in this encounter Plan of Treatment Not on file documented as of this encounter Visit Diagnoses Not on filedocumented in this encounter Care Teams Assistant Cook Relationship Specialty Start Date End Date No, Physician PCP - General 11/19/24 11/19/24 Derrick Cian MD [address] [place] [address] PCP - General Internal Medicine 11/20/24 Judith Hernandez, cloth bleaching range tenderPre Algebra Teacher 12/02/24 estrella cardona Secondary Kidney Coordinator 12/02/24 documented as of this encounter
--- OUTSIDE RECORDS SUMMARY | 2024-12-04 11:21 | XMS_ITS | Encounter Summary ---
Author Organization [facility] Address [address] [place] [address] Phone Care Team Providers Care Compliance Lead Name Role Phone Derrick Cain MD Primary Care Provider [phone] Judith Hernandez RN Unavailable Unavailabl e Encounter Details Date Type Department Care Team (Late st Contact Info) Description 11/20/2024 Results Follow-Up [facility] Cardiology [address] [facility] Medical Office Building [address] [place] [id number] Suhail Sesay MD [address] [facility] [address] [place], [place] [id number] Social History Tobacco Use Types Packs/Day Years Used Date Smoking Tobacco: Never Passive Smoke Exposure: Never Smokeless Tobacco: Never Comments Unknown Sex and Gender Information Value Date Recorded Sex Assigned at Not on file Legal Sex Female 3:53 PM CDT Gender Identity Not on file Sexual Orientation Not on file documented as of this encounter Plan of Treatment Not on file documented as of this encounter Visit Diagnoses Not on filedocumented in this encounter Care Teams Compliance Lead Relationship Specialty Start Date End Date Derrick Cain MD [address] [place] [address] PCP - General Internal Medicine 11/20/24 Judith Hernandez inside meter testerInbound Call Center Agent 12/02/24 estrella cardona Secondary Kidney Coordinator 12/02/24 documented as of this encounter
--- OUTSIDE RECORDS SUMMARY | 2024-12-04 11:21 | XMS_ITS | Clinical Summary ---
Author Organization [facility] Address [address] [place] [place] [address] Phone Care Team Providers Care Tobacco Dipper Name Role Phone Derrick Cain MD Primary Care Provider [phone] Allergies Active Allergy Reactions Criticality Noted Date Comments Clonidine Other (see Comments) 03/22/2022 Hydrocodone-Acetaminophen Itching,Other (see Comments) Medium 12/26/2009 Lisinopril Other (see Comments) 03/22/2022 Medications ondansetron (ZOFRAN-ODT) 4 MG TABLET DISPERSIBLE Take 4 mg by mouth every 8 hours as needed for Nausea - 1st line. 03/17/20 24 Active telmisartan (MICARDIS) 40 MG Tablet Take 1 Tablet by mouth daily. 90 Tablet 1 08/18/19 25 Active Additional Information Patient taking differently:40 mg OralEVERY MORNING, Reported on 11/27/2024 naloxone HCl (Narcan) 4 MG/0.1ML Liquid 1 [place] by Nasal route as needed for Opioid Reversal. Administer in one nostril for symptoms of overdose (severe sleepiness, breathing problems, not responsive). Call 911. May repeat 1 spray in alternate nostril in 2-3 minutes if needed. 2 Each 08/18/19 Active Additional Information Patient not taking.Reported on 11/27/2024 Rizatriptan Benzoate 10 MG Tablet Take 1 Tablet by mouth once as needed for Headaches. May repeat in 2 hours in needed 10 Tablet 09/17/19 25 Active amLODIPine (NORVASC) 10 MG Tablet Take 10 mg by mouth nightly. 10/17/19 25 038 Active carvedilol (COREG) 12.5 MG Tablet Take 12.5 mg by mouth 2 times daily. 10/17/19 25 026 Active escitalopram (LEXAPRO) 10 MG Tablet Take 1 Tablet by mouth daily. 90 Tablet 10/20/19 25 Active topiramate (TOPAMAX) 100 MG Tablet Take 1 Tablet by mouth every 12 hours. 180 Tablet 10/20/19 Active Additional Information Patient taking differently:100 mg Oral EVERY 12 HOURS,Indications: Migraine, Reported on 11/27/2024 gabapentin (NEURONTIN) 300 MG Capsule Take 1 Capsule by mouth 2 times daily. 60 Capsule 3 10/20/19 25 Active Additional Information Patient taking differently:300 mg Oral 2 TIMES DAILY,Indications: Neuropathic Pain, Reported on 11/12/2024 temazepam (RESTORIL) 15 MG CapsuleIndicati ons:Primary insomnia Take 1 Capsule by mouth nightly as needed for Sleep for up to 30 days. 30 Capsule 11/15/19 25 025 Active Additional Information Patient taking differently:15 mg OralNIGHTLY, Reported on 11/27/2024 tiZANidine (ZANAFLEX) 4 MG Tablet Take 1 Tablet by mouth 3 times daily. 90 Tablet 11/11/19 25 Active oxyCODONE-Aceta minophen (PERCOCET) 10-325 MG TabletIndicatio ns:Chronic neck pain,Chronic bilateral low back pain with right-sided sciatica Take 1 Tablet by mouth 2 times daily as needed for Moderate or more severe pain or Severe pain. 28 Tablet 11/11/19 25 Active tiZANidine (ZANAFLEX) 4 MG Tablet Take 1 Tablet by mouth 3 times daily. 90 Tablet 09/17/19 25 025 Discontinu ed(Reorder ) temazepam (RESTORIL) 15 MG CapsuleIndicati ons:Primary insomnia Take 1 Capsule by mouth nightly as needed for Sleep for up to 30 days. 30 Capsule 10/20/19 25 025 Discontinu ed(Reorder ) oxyCODONE-Aceta minophen (PERCOCET) 10-325 MG TabletIndicatio ns:Chronic neck pain,Chronic bilateral low back pain with right-sided sciatica Take 1 Tablet by mouth 2 times daily as needed for Moderate or more severe pain or Severe pain. 28 Tablet 10/23/19 25 025 Discontinu ed(Reorder ) nitrofurantoin, monohydrate-mac rocrystal, (MACROBID) 100 MG Capsule Take 1 Capsule by mouth 2 times daily for 7 days. 14 Capsule 11/21/19 25 025 Active Problems Problem Noted Date Diagnosed Date Adenomatous rectal polyp 11/27/2024 Chronic left shoulder pain 08/18/2024 Screening for [...] Encounters Date Type Department Care Team Description 12/04/2024 Telephone [facility] - [facility] - [place] [address] [place], [place] [address] Derrick Cain MD Medication Refill 11/30/2024 Results Follow-Up [facility] Adult Pediatric Inpatient Virtual [address] [place] [address] Jigar Castellanos MD Pathology Surgical 11/27/2024 7:20 AM CDT Anesthesia Event [facility] Gi Lab Periop [address] [place] [address] Nitesh Bland APRN, HERIBERTO 11/27/2024 7:00 AM CDT - 11/27/2024 7:30 AM CDT Surgery [facility] Gi Lab Periop [address] [place] [address] Jigar Castellanos MD COLONOSCOPY- COLON POLYPECTOMY AT 15 CM (COLD SNARE) 11/27/2024 6:40 AM CDT [facility]illary [facility] [address] [place] [address] Jigar Castellanos MD 11/27/2024 6:31 AM CDT - 11/27/2024 8:29 AM CDT [facility]/Pacu II [address] [place] [address] Jigar Castellanos MD Adenomatous rectal polyp Discharge Disposition: Discharged to home or Selfcare 11/27/2024 Travel 11/20/2024 Results Follow-Up [facility] [address] [place] [place] [address] Jessy Lipscomb, PAC CULTURE, URINE 11/16/2024 [facility] [address] [place], [place] [address] Derrick Cain MD Medication Refill 11/12/2024 Travel 11/10/2024 [facility] [address] [place] [address] Jigar Castellanos MD 11/10/2024 Refill [facility] [address] [place], [place] [address] Derrick Cain MD Medication Refill 11/09/2024 [facility] [address] [place] [address] Sylvie Luis APRN, INSTRUMENTATION TECHNICIAN Procedure; Appointment 10/29/2024 [facility] [address] [place] [address] Derrick Cain MD Medication Refill 10/22/2024 Refill [facility] [address] [place], [place] [address] Derrick Cain MD Medication Refill 10/19/2024 3:30 PM CDT Office Visit [facility] [address] [place] [address] Derrick Cain MD Chronic bilateral low back pain with right-sided sciatica (Primary Dx); Primary insomnia; Screening for colorectal cancer; Chronic left shoulder pain; Polycystic kidney disease, autosomal dominant Discharge Disposition: Discharged to home or Selfcare 10/19/2024 Travel 10/15/2024 Refill [facility] [address] [place] [address] Derrick Cain MD Medication Refill 10/08/2024 Refill [facility] [address] [place], [place] [address] Derrick Cain MD Medication Refill 10/01/2024 Refill [facility] [address] [place] [address] Derrick Cain MD Medication Refill 10/01/2024 Results Follow-Up [facility] [address] [place], [place] [address] Derrick Cain MD XR SHOULDER COMPLETE LEFT 09/24/2024 Results Follow-Up [facility] [address] [place] [address] Derrick Cain MD ERIKA SCREENING SONALI W IMPL DIGITAL W CAD W ANAIS 09/24/2024 Results Follow-Up [facility] [address] [place] [address] Derrick Cain MD URINE DRUG SCREEN 09/23/2024 12:33 PM MANNEQUIN MOLDER - 09/23/2024 11:59 PM MANNEQUIN MOLDER Hospital Encounter [facility] Diagnostic Radiology 1 [facility] [place] [address] Derrick Cain MD Discharge Disposition: Discharged to home or Selfcare 09/23/2024 Travel 09/23/2024 Refill [facility] [address] [place] [address] Derrick Cain MD Medication Refill 09/17/2024 Telephone [facility] [address] [place] [address] Derrick Cain MD 09/17/2024 Results Follow-Up [facility] [address] [place] [place] [address] Derrick Cain MD EXTERNAL PAIN REFERRAL 09/17/2024 [facility] [address] [place] [address] Derrick Cain MD Medication Refill 09/16/2024 Telephone [facility] [address] [place] [address] Derrick Cain MD Medication Refill 09/15/2024 Telephone [facility] [address] [place] [address] Derrick Cain MD 09/15/2024 Refill [facility] [address] [place] [address] Derrick Cain MD Medication Refill 09/09/2024 2:31 PM MANNEQUIN MOLDER - 09/09/2024 11:59 PM MANNEQUIN MOLDER [facility] 1 [facility] [place] [address] Derrick Cain MD Discharge Disposition: Discharged to home or Selfcare 09/09/2024 Travel 09/08/2024 Refill [facility] [address] [place] [address] Derrick Cain MD Medication Refill 09/07/2024 Telephone [facility] [address] [place] [address] Derrick Cain MD 09/07/2024 Documentation Only [facility] [address] [place] [address] Derrick Cain MD from Last 3 [...] on file Legal Sex Female 11:09 AM MANNEQUIN MOLDER Gender Identity Not on file Sexual Orientation Not on file Last Filed Vital Signs Vital Sign Reading Time Taken Comments Blood Pressure 116/83 11/27/2024 8:15 AM CDT Pulse 56 11/27/2024 8:15 AM CDT Temperature 36 C (96.8 F) 11/27/2024 8:15 AM CDT Respiratory Rate 16 11/27/2024 8:15 AM CDT Oxygen Saturation 100% 11/27/2024 8:15 AM CDT Inhaled Oxygen Concentration - - Weight 85.3 kg (188 lb) 11/12/2024 9:59 AM CDT Height 165.1 cm (5' 5 ) 11/12/2024 9:59 AM CDT Body Mass Index 31.28 11/12/2024 9:59 AM CDT Plan of Treatment Upcoming Encounters Date Type Department Care Team (Late st Contact Info) Description 01/13/2025 8:00 AM CDT [facility] [place] [address] [place] [address] [phone] Derrick Cain MD [address] [place] [address] [place] [address] Health Maintenance Due Date Last Done Comments Hepatitis C Virus (HCV) Screening 1975 TdaP Immunization 1975 Hepatitis B Immunization (1 of 3 - 19+ 3-dose series) 1993 Cologuard 02/01/2024 Immunochemical Fecal Occult Blood 02/01/2024 Pneumococcal Immunization (50+ years) (1 of 1 - PCV) 02/01/2024 Zoster Immunization (1 of 2) 02/01/2024 SARS-COV-2 Immunization ( season) 2024 09/09/2020, 09/01/2020, 08/09/2020 Influenza Immunization (Season Ended) 2025 04/21/2023, 04/21/2022 Mammogram 09/09/2025 09/09/2024, 12/0 11/2022, 02/16/2021, Additional history exists Colonoscopy 11/27/2034 11/27/2024 Colorectal Cancer Screening 11/27/2034 Respiratory Syncytial Virus (RSV) Immunization (Adult) (1 - 1-dose 75+ series) 2049 11/27/2024 Human Papillomavirus (HPV) Immunization Aged Out No longer eligible based on patient's age to complete this topic Meningococcal Immunization (ACWY) Aged Out No longer eligible based on patient's age to complete this topic Rotavirus Immunization Aged Out No lo nger eligible based on patient's age to complete this topic Procedures Procedure Name Priority Date/Time Associated Diagnosis Comments PATHOLOGY SURGICAL Routine 11/27/2024 7: 39 AM CDT COLON CA SCRN NOT HI RSK IND 11/27/2024 7:22 AM CDT COLONOSCOPY- COLON POLYPECTOMY AT 15 CM (COLD SNARE) Special Needs Hx CKD stage 4 - Dx screen COLORECTAL SCRN; HI RISK IND 11/27/2024 7:22 AM CDT COLONOSCOPY- COLON POLYPECTOMY AT 15 CM (COLD SNARE) Special Needs Hx CKD stage 4 - Dx screen GA COLONOSCOPY FLX DX W/COLLJ SPEC WHEN PFRMD 11/27/2024 7:22 AM CDT COLONOSCOPY- COLON POLYPECTOMY AT 15 CM (COLD SNARE) Special Needs Hx CKD stage 4 - Dx screen GI IMAGING - COLONOSCOPY Routine 11/27/2024 6:37 AM CDT URINALYSIS (UA) RANDOM 11/18/2024 12:00 AM CDT COMPLETE BLOOD COUNT (CBC) WITH DIFF 11/18/2024 12:00 AM CDT CMP (COMPREHENSIVE METABOLIC PANEL) 11/18/2024 12:00 AM CDT XR - CHEST 11/18/2024 12:00 AM CDT CULTURE, URINE 11/18/2024 12:00 AM CDT CULTURE - MISCELLANEOUS 11/18/2024 12:00 AM CDT EXTERNAL PAIN REFERRAL Routine 10/08/2024 12:00 AM CDT Chronic neck pain Chronic bilateral low back pain with right-sided sciatica PAIN CONSULT 10/07/2024 12:00 AM CDT EXTERNAL ORTHOPEDIC REFERRAL Routine 09/25/2024 12:00 AM MANNEQUIN MOLDER Chronic left shoulder pain XR SHOULDER COMPLETE LEFT Routine 09/23/2024 12:53 PM MANNEQUIN MOLDER Chronic left shoulder pain URINE DRUG SCREEN Routine 09/23/2024 12: 35 PM MANNEQUIN MOLDER High risk medication use LAB - MISCELLANEOUS 09/16/2024 1 2:00 AM MANNEQUIN MOLDER URINALYSIS (UA) RANDOM 09/16/2024 12:00 AM MANNEQUIN MOLDER COMPLETE BLOOD COUNT (CBC) WITH DIFF 09/16/2024 12:00 AM MANNEQUIN MOLDER HEPATIC FUNCTION PANEL 09/16/2024 12:00 AM MANNEQUIN MOLDER RENAL FUNCTION PANEL (RFP) 09/16/2024 12:00 AM MANNEQUIN MOLDER LAB - MISCELLANEOUS 09/16/2024 1 2:00 AM MANNEQUIN MOLDER ERIKA SCREENING SONALI W IMPL DIGITAL W CAD W ANAIS Routine 09/09/2024 3:33 PM MANNEQUIN MOLDER Breast cancer screening by mammogram from Last 3 Months Results * Pathology Surgical (11/27/2024 7:39 AM CDT) Case Report Surgical Pathology Report Case: [id number] Authorizing Provider: Jigar Castellanos MD Collected: 11/27/2024 07:39 AM Ordering Location: [facility] Received: 11/27/2024 08:52 AM [facility] Gi Lab Main Pathologist: Yohana Dacosta MD PhD Specimen: Colon, COLON POLYP AT 15 CM 11/30/2024 11:22 AM CDT [facility] FINAL DIAGNOSIS Colon polyp at 15 cm, polypectomy: - Tubular adenoma 11/30/2024 11:22 AM CDT [facility] at 1122 CDT Pre-Operative Diagnosis SCREENING COLON CANCER 11/30/2024 11:22 AM CDT [facility] Gross Description A. COLON POLYP AT 15 CM The specimen presents in a single formalin container for gross and microscopic examination, labeled with the patient's name, October, and designated as colon polyp at 15 cm. The specimen consists of a single pink-delaney tissue measuring 0.5 cm in greatest dimension. It will be bisected. All submitted cassette A1. Total time of fixation is 62 hours, 7 minutes. KS/sb 11/30/2024 11:22 AM CDT [facility] Microscopic Description Microscopic examination was performed which supports the final diagnosis. All control tissues stained appropriately. 11/30/2024 11:22 AM CDT [facility] Tissue COLON STRUCTURE / Unknown 11/27/2024 7:39 AM CDT 11/27/2024 8:52 AM CDT us Jigar Castellanos MD PATHOLOGY/CYTOLOGY ORDERAB LES Final Result [facility] [address] [place] [address] * GI IMAGING - COLONOSCOPY (11/27/2024 6:37 AM CDT) us Jigar Castellanos MD IMG DIAGNOSTIC ORDERABLES Final Result * XR - CHEST (11/18/2024 12:00 AM CDT) 11/18/2024 us Provider Scan IMG DIAGNOSTIC ORDERABLES Final Result Performing Organization Address [facility] de Phone Number SCAN * CULTURE - MISCELLANEOUS (11/18/2024 12:00 AM CDT) 11/18/2024 us Provider Scan MICROBIOLOGY - GENERAL ORDERABLE S Final Result Performing Organization Address [facility] de Phone Number SCAN * URINALYSIS (UA) RANDOM (11/18/2024 12:00 AM CDT) Only the most recent of2 resultswithin the time period is included. 11/18/2024 us Provider Scan URINE ORDERABLES Final Result Performing Organization Address [facility] de Phone Number SCAN * CULTURE, URINE (11/18/2024 12:00 AM CDT) 11/18/2024 us Derrick Cain MD MICROBIOLOGY - GENERAL ORDGeovanna RABLES Final Result Performing Organization Address [facility] de Phone Number SCAN * CMP (COMPREHENSIVE METABOLIC PANEL) (11/18/2024 12:00 AM CDT) 11/18/2024 us Provider Scan CHEMISTRY ORDERABLES Final Resul t Performing Organization Address [facility] de Phone Number SCAN * COMPLETE BLOOD COUNT (CBC) WITH DIFF (11/18/2024 12:00 AM CDT) Only the most recent of2 resultswithin the time period is included. 11/18/2024 us Provider Scan HEMATOLOGY ORDERABLES Final Resu lt Performing Organization Address [facility] de Phone Number SCAN * EXTERNAL PAIN REFERRAL (10/08/2024 12:00 AM CDT) 10/08/2024 Derrick Cain MD OUTPT REFERRALS EXT/INT Fin al Result Performing Organization Address [facility] de Phone Number SCAN * PAIN CONSULT (10/07/2024 12:00 AM CDT) 10/07/2024 Derrick Cain MD GENERIC SCAN ORDERS CONSULT Final Result Performing Organization Address [facility] de Phone Number SCAN * EXTERNAL ORTHOPEDIC REFERRAL (09/25/2024 12:00 AM MANNEQUIN MOLDER) 09/25/2024 Derrick Cain MD OUTPT REFERRALS EXT/INT Fin al Result Performing Organization Address [facility] de Phone Number SCAN * XR SHOULDER COMPLETE LEFT (09/23/2024 12:53 PM MANNEQUIN MOLDER) Anatomical Region Laterality Modality UPPER EXTREMITY, shoulder [...] 5:57 PM - Electronically signed by Reyes Lance M.D. MJ: JAMISON Report ID: [id number] Reading Location: [id number] Procedure Note Reyes Lance MD - 09/30/2024 [...] 5:57 PM - Electronically signed by Reyes Lance M.D. MJ: JAMISON Report ID: [id number] Reading Location: [id number] IMPRESSION: Moderate osteoarthritis AC joint. Derrick Cain MD [facility] DIAGNOSTIC ORDERABLES F inal Result * (ABNORMAL) URINE DRUG SCREEN (09/23/2024 12:35 PM MANNEQUIN MOLDER) UR AMPHETAMINE NON DETECTED NON DETECTED 09/23/2024 1:41 PM MANNEQUIN MOLDER [facility] Comment: FOR MEDICAL USE ONLY. CUTOFF CONCENTRATION FOR DETECTED RESULT: AMPHETAMINE: 500 NG/ML UR BENZODIAZEPINES NON DETECTED NON DETECTED 09/23/2024 1:41 PM MANNEQUIN MOLDER [facility] Comment: FOR MEDICAL USE ONLY. CUTOFF CONCENTRATION FOR DETECTED RESULT: BENZODIAZAPINE: 200 NG/ML UR COCAINE METABOLITE NON DETECTED NON DETECTED 09/23/2024 1:41 PM MANNEQUIN MOLDER [facility] Comment: FOR MEDICAL USE ONLY. CUTOFF CONCENTRATION FOR DETECTED RESULT: COCAINE: 150 NG/ML UR OPIATES DETECTED(A) NON DETECTED 09/23/2024 1:41 PM MANNEQUIN MOLDER [facility] Comment: FOR MEDICAL USE ONLY. CUTOFF CONCENTRATION FOR DETECTED RESULT: OPIATES: 300 NG/ML UR PHENCYCLIDINE NON DETECTED NON DETECTED 09/23/2024 1:41 PM MANNEQUIN MOLDER [facility] Comment: FOR MEDICAL USE ONLY. CUTOFF CONCENTRATION FOR DETECTED RESULT: PCP: 25 NG/ML UR CANNABINOID NON DETECTED NON DETECTED 09/23/2024 1:41 PM MANNEQUIN MOLDER [facility] Comment: FOR MEDICAL USE ONLY. CUTOFF CONCENTRATION FOR DETECTED RESULT: THC (MARIJUANA): 50 NG/ML UR BARBITURATE NON DETECTED NON DETECTED 09/23/2024 1:41 PM MANNEQUIN MOLDER [facility] Comment: FOR MEDICAL USE ONLY. CUTOFF CONCENTRATION FOR DETECTED RESULT: BARBITUATES: 200 NG/ML UR FENTANYL NON DETECTED NON DETECTED 09/23/2024 1:41 PM MANNEQUIN MOLDER [facility] Comment: FOR MEDICAL USE ONLY. CUTOFF CONCENTRATION FOR DETECTED RESULT: FENTANYL: 1.0 NG/ML Urine Non-Phlebotomy Collection / Unknown 09/23/2024 12:35 PM MANNEQUIN MOLDER 09/23/2024 1:09 PM MANNEQUIN MOLDER us Derrick Cain MD URINE ORDERABLES Final Resu lt Performing Organization Address [facility]/ZIP Co de Phone Number [facility] [address] [place] [address] * LAB - MISCELLANEOUS (09/16/2024 12:00 AM MANNEQUIN MOLDER) Only the most recent of2 resultswithin the time period is included. 09/16/2024 us Provider Scan CHEMISTRY ORDERABLES Final Resul t SCAN * RENAL FUNCTION PANEL (RFP) (09/16/2024 12:00 AM MANNEQUIN MOLDER) 09/16/2024 us Provider Scan CHEMISTRY ORDERABLES Final Resul t SCAN * HEPATIC FUNCTION PANEL (09/16/2024 12:00 AM MANNEQUIN MOLDER) 09/16/2024 [id number]|2024-12-04 11:21:00|2024-12-04 11:21:00|XMS_ITS|BKG LUCASON|External Medical Summaries|[id number]|" Referral Summary Created on: December 04, 2024 Emmett Vida : 1975 Sex: Female Author Organization [facility] Address [address] [place] [address] Care Team Providers Care Tobacco Dipper Name Role Phone Derrick Cain MD Primary Care Provider [phone] Judith Hernandez RN Unavailable Unavailabl e Encounters Date Type Department Care Team Description 12/02/[address] [facility] Transplant Kidney [address] [facility] [address] [phone] [place] [address] Paula Rogers Referral - Kidney Txp 12/01/[address] [facility] Transplant Kidney [address] [facility] [address] [phone] [place] [address] Elizabeth Carolina Referral - Kidney Txp 11/27/2024 3:00 PM CDT Ancillary Procedure Heart Care [facility] [address] [address] [place] [address] Syncope and collapse; Essential hypertension; Sinus bradycardia; Dizziness 11/25/2024 Documentation [facility] Transplant Kidney [address] [facility] [address] [phone] [place] [address] Paula Rogers 11/20/2024 2:15 PM CDT Ancillary Procedure Heart Care [place] [id number] [facility] [address] [place] [address] Syncope and collapse; Essential hypertension; Sinus bradycardia; Dizziness 11/20/2024 Results Follow-Up [facility] Cardiology [address] [place] [address] Medical Office Building [address] [place] [address] Ilsa Sesay MD 11/20/2024 1:30 PM CDT Office Visit [facility] Cardiology [address] [place] [address] Office Building [address] [place] [address] Ilsa Sesay MD Syncope and collapse (Primary Dx); Essential hypertension; Sinus bradycardia; Dizziness 11/19/2024 Telephone [facility] Cardiology [facility] 8th [place] [address] [place] [id number] Yomaira French 11/12/[address] [facility] Transplant Kidney [address] [facility] [address] [phone] [place] [address] Fang Sow Referral - Kidney Txp 11/03/2024 Documentation [facility] Transplant Kidney [address] [facility] [address] [phone] [place] [address] Elizabeth Carolina 11/03/[address] [facility] Transplant Kidney [address] [facility] [address] [phone] [place] [address] Elizabeth Carolina Referral - Kidney Txp from Last 3 Months Allergies Active Allergy Reactions Criticality Noted Date [...] Active Active Problems No known active problems Social History Tobacco Use Types Packs/Day Years [...] 11/20/2024 1:32 PM CDT Plan of Treatment Not on file Procedures Procedure Name Priority Date/Time Associated Diagnosis [...] PM CDT Narrative 11/30/2024 3:47 AM CDT [facility] Cardiac Diagnostic Lab [address], [address] [place] [address] Transthoracic Echocardiographic Report Patient Name: October : 1975 (49y 9m) Gender: F Study Date: 11/27/2024 03:12:58 PM Ht(Inch): 65 Wt(Lb): 184.97 BSA: 1.96 Director Adult: RADHA Uribe Location: [facility] Order Provider: ILSA SESAY Heart Rate: 50 [...] Procedure Note Raúl Casillas MD - 11/30/2024 [facility] Cardiac Diagnostic Lab [address] , [address] [place] [address] Transthoracic Echocardiographic Report Patient Name: October : 1975 (49y 9m) Gender: F Study Date: 11/27/2024 03:12:58 PM Ht(Inch): 65 Wt(Lb): 184.97 BSA: 1.96 Director Adult: RADHA Uribe Location: [facility] Order Provider:ILSA SESAY Heart Rate: 50 BMI: [...] LA Length 4C 5.34 cm MV Decel Bfwq505.97 msec [ 104.00 - 258.00 ] LA [...] - Final from Last 3 Months Insurance [employer] O[employer] Care Teams Tobacco Dipper Relationship Specialty Start Date End Date Derrick Cain MD [address] [place] [address] PCP - General Internal Medicine 11/20/24 Yearout, Judith Hollins staff analystManager Database Administration 12/02/24 estrella cardona Secondary Kidney Coordinator 12/02/24 "
--- OUTSIDE RECORDS SUMMARY | 2024-12-04 11:21 | XMS_ITS | Clinical Summary ---
Author Organization [facility] Address [address] [facility] [address] [place] [address] Phone Care Team Providers Care Mines Safety Engineer Name Role Phone Michelet Centeno MD Primary Care Provider [phone] Allergies Active Allergy Reactions Criticality Noted Date [...] Vaccine (Season Ended) 2025 04/21/20, 04/21/2022 [place] [address] [facility] Care Teams Mines Safety Engineer Relationship Specialty Start Date End Date Michelet Centeno MD [address] [place] [address], [facility] [address] [place] [address] PCP - General Family Medicine 11/12/23
--- OUTSIDE RECORDS SUMMARY | 2024-12-04 11:21 | XMS_ITS ---
Author Organization [facility] al Address [address] [place] [address] Care Team Providers Care Aircraft Maintenance Supervisor Name Role Phone Derrick Cain MD Primary Care Provider [phone] Judith Hernandez RN Unavailable Unavailabl e Transplant Episode Kidney Candidate [facility] ([place] [place] Referred on 11/03/2024 Marked as Active on 12/02/2024 Reason: Pending Financial Approval Kidney CoordinatorJudith Hernandez RN Phone: N/A Fax: N/A Email: N/A Scores Score Value Updated Exceptions/Reas ons CPRA Not available EPTS (Calc) 16 12/04/2024 Care Team Name Role Phone Fax Email Judith Hernandez RN Kidney Coordinator N/A N/A N/A Paula Rogers Primary Valve Assembler N/A N/A N/A Rachel Blount Crime Specialist [phone] N/A N/A Events Pre-Transplant Referred: 11/03/2024
--- OUTSIDE RECORDS SUMMARY | 2024-12-04 11:21 | XMS_ITS | Encounter Summary ---
Author Organization [facility] Address [address] [place] [address] Care Team Providers Care Repeat Photocomposing Machine Operator Name Role Phone Derrick Cain MD Primary Care Provider [phone] YearJudith christine RN Unavailable Unavailabl e Reason for Referral * Transplant (Routine) - Pending Review Specialty Diagnoses / Procedures Referred By Contstephen t Referred To Contact Transplant Diagnoses ESRD (end stage renal disease) ([facility]) Shantal Escobar MD [address] [place] [address] Phone: tel: fax: [facility] Transplant Kidney [id number] [place] [address] Phone: tel: fax: Referral ID Status Reason Start Date Expiration Date Visits Requested Visits Authorized [id number] Pending Review Specialty Services Required 12/02/2024 12/02/2034 1 1 Question Answer Organ Kidney [16] Please select the performing region: [facility] [152] Please select the performing department: [facility] KIDNEY TRANSPLANT [[id number]] Reason for Visit * Reason Onset Date Comments Referral - Kidney Txp 12/02/2024 Encounter Details Date Type Department Care Team (Late st Contact Info) Description 12/02/2024 Telephone [facility] Transplant Kidney [id number] [place] [address] Paula Rogers Referral - Kidney Txp Social History Tobacco Use Types Packs/Day Years Used Date Smoking Tobacco: Never Passive Smoke Exposure: Never Smokeless Tobacco: Never Comments Unknown Sex and Gender Information Value Date Recorded Sex Assigned at Not on file Legal Sex Female 3:53 PM CDT Gender Identity Not on file Sexual Orientation Not on file documented as of this encounter Miscellaneous Notes * Telephone Encounter - Fang Samaniego - 12/02/2024 10:37 AM CDT Patient has BCBS of [facility] Care * Telephone Encounter - Palua Rogers - 12/02/2024 10:24 AM CDT Received referral for transplant via phone call self-referral Patient initially referred to Judith/Estrella for Kidney Transplant evaluation on 12/02/24 Patient is not currently on dialysis Insurance Cards saved to chart No additional referral records received [facility] Reyes Sanchez, DO [address] [facility], [address] documented in this encounter Plan of Treatment Scheduled Referrals Name Type Priority Associated Diagnoses Order Schedule Transplant Referral for Financial Clearance Outpatient Referral Routine ESRD (end stage renal disease) (HCC) Ordered: 12/02/2024 documented as of this encounter Visit Diagnoses Diagnosis ESRD (end stage renal disease) (HCC)- Primary End stage renal disease documented in this encounter Care Teams Repeat Photocomposing Machine Operator Relationship Specialty Start Date End Date Derrick Cain MD [address] [place] [address] PCP - General Internal Medicine 11/20/24 Yearout, Judith Hollins aboriginal ceremonial celebrantSugar Cane Planting Equipment Operator 12/02/24 estrella cardona Secondary Kidney Coordinator 12/02/24 documented as of this encounter
--- OUTSIDE RECORDS SUMMARY | 2024-12-04 11:21 | XMS_ITS | Encounter Summary ---
Author Organization [facility] Address [address] [place] [address] Phone Care Team Providers Care Vessel Liner Name Role Phone Derrick Cain MD Primary Care Provider [phone] Reason for Visit * Reason Onset Date Comments Medication Refill 11/16/2024 Encounter Details Date Type Department Care Team (Late st Contact Info) Description 11/16/2024 Refill [facility] - [place] [address] [place] [address] Derrick Cain MD [address] [place] [address] Medication Refill Social History Tobacco [...] on file Legal Sex Female 11:09 AM SOCIAL MEDIA DIRECTOR Gender Identity Not on file Sexual Orientation Not on file documented as of this encounter Miscellaneous Notes * Telephone Encounter - Rosa Srivastava - 11/16/2024 10:33 AM CDT Med rf Medication - Temazepam Phone - [phone] Pharmacy - [facility] documented in this encounter Plan of Treatment Upcoming Encounters Date Type Department Care Team (Late st Contact Info) Description 01/13/2025 8:00 AM CDT Office Visit [facility] - Internal Medicine - [place] [address] [place] [address] Derrick Cain MD [address] [place] [address] documented as of this encounter Visit Diagnoses Diagnosis Primary insomnia Persistent disorder of initiating or maintaining sleep documented in this encounter Additional Health Concerns Assessment Noted Time PHQ-9 Depression Total Score: 0 08/18/19 3:32 PM SOCIAL MEDIA DIRECTOR documented as of this encounter Care Teams Vessel Liner Relationship Specialty Start Date End Date Derrick Cain MD [address] [place] [address] PCP - General Internal Medicine 08/18/24 documented as of this encounter
--- OUTSIDE RECORDS SUMMARY | 2024-12-04 11:21 | XMS_ITS | Encounter Summary ---
Author Organization [facility] Address [address] 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 Gender Identity Not on file Sexual Orientation [...] Dept 10/19/24 Office Visit [facility] [place] 08/18/24 Office Visit Derrick Cain MD [facility] [place] Showing recent visits within past 365 days and meeting all other requirements Future Appointments Date Type Provider Dept 01/13/25 Appointment [facility] [place] Showing future appointments within next 90 days and meeting all other requirements * Telephone Encounter - Rosa Srivastava - 10/29/2024 1:31 PM CDT Med rf Medication - Percocet Phone - [phone] Pharmacy - [facility] documented in this encounter Plan of Treatment Upcoming Encounters Date Type Department Care Team (Late st Contact Info) Description 01/13/2025 8:00 AM CDT Office Visit [facility] - Internal Medicine - [place] [address] [place] [address] Derrick Cain MD [address] [address] documented as of this encounter Visit Diagnoses Diagnosis Chronic neck pain Cervicalgia Chronic bilateral low back pain with right-sided sciatica documented in this encounter Additional Health Concerns Assessment Noted Time PHQ-9 Depression Total Score: 0 08/18/19 3:32 PM AUTOMOTIVE FUEL INJECTION SERVICER documented as of this encounter Care Teams Multifocal Lens Inspector Relationship Specialty Start Date End Date Derrick Cain MD [address] [place] [address] PCP - General Internal Medicine 08/18/24 documented as of this encounter
--- OUTSIDE RECORDS SUMMARY | 2024-12-04 11:22 | XMS_ITS ---
Author Organization [facility] Address [address] [place] [address] LILIANA [place] [address] Care Team Providers Care Check Viewer Name Role Phone MD BENNIE, LEELA Primary Care Provider Kodak cruz Jamey Vyas Unavailable [phone] RAMANA ADAMS CHARLES Unavailable Unavailable ALLERGIES Allergen (clinical drug ingredient) Drug/Non Drug Allergy documented on EMR Reaction Allergy Type Onset Date Status clonidine Clonidine Unknown Drug Allergy Active hydrocodone Hydrocodone itching Drug Allergy Act farnaz lisinopril Lisinopril Unknown Drug Allergy Activ e REASON FOR VISIT New Patient Visit, Right > Left Low Back Pain, Right = Left Lower Extremity Pain, Left Neck Pain, Left Upper Extremity Pain MEDICATIONS Medication SIG (Take, Route, Frequency, Duration) Notes Start Date End Date Status Telmisartan 40 MG TAKE 1 TABLET BY KORY TH DAILY Oral for 90 Active tiZANidine HCl 4 MG TAKE 1 TABLET BY KORY TH THREE TIMES DAILY Oral for 30 Active amLODIPine Besylate 5 MG TAKE 1 TABLET B Y MOUTH DAILY Oral for 90 Active Topiramate 100 MG TAKE 1 TABLET BY KORY TH EVERY 12 HOURS Oral for 11 Active Temazepam 15 MG TAKE 1 CAPSULE BY MO UTH EVERY NIGHT NEEDED FOR SLEEP Oral for 30 Active Escitalopram Oxalate 10 MG 1 tablet Oral Once a day Active oxyCODONE-Acetaminophen 10-325 MG TAKE 1 TABLET [...] W/U Status Risk SNOMED Code Notes Problem Lumbar radiculopathy (M54.16) Active confirmed Lumbar radiculopathy (724945434) Problem Other intervertebral disc degeneration, 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) Active confirmed Problem Spondylosis without myelopathy or radiculopathy, lumbar region (M47.816) Active confirmed Lumbosacral spondylosis without myelopathy (11266213) Problem Radiculopathy, cervical region (M54.12) Active confirmed Cervical radiculopathy (39772538) Problem Pain in left shoulder (M25.512) Active confirmed Shoulder joint pain (497473660) Problem retirement (current) use of opiate analgesic (Z79.891) Active confirmed High risk drug monitoring status (230792370) Problem Fear of injections and transfusions (F40.231) Active confirmed Fear of medical treatment (994233700) VITAL SIGNS Blood pressure systolic 161 mm Hg 10/09/19 25 Blood pressure diastolic 104 mm Hg 025 Heart Rate 63 /min 10/08/2024 Respiratory Rate 16 /min 10/08/2024 Height 5 ft 5 in in 10/08/2024 Weight 199 lbs 10/08/2024 BMI 33.11 kg/m2 10/08/2024 Encounters Encounter Location Date Provider Diagnosis [facility] [address] [place] [id number] 10/08/2024 Jamey Vyas Lumbar radiculopathy M54.16 ; Other intervertebral disc degeneration, lumbar region with discogenic back pain and lower extremity pain M51.362 ; Spondylosis without myelopathy or radiculopathy, lumbar region M47.816 ; Radiculopathy, cervical region M54.12 ; Pain in left shoulder M25.512 ; 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 10/08/2024 Fear of injections and transfusions (ICD-10 - F40.231) 10/08/[address] Adams for your kind referral and for involving me in the care of this patient. PLAN OF TREATMENT Treatment Notes Assessment Notes Lumbar radiculopathy The patient was giv en an order for physical therapy. computer terminal operator (current) use of opiate analge sic The patient was given the contact information of pain specialists in the area who offer chronic opioid medication management. Other Thank you Dr. King jaffe or your kind referral and for involving me in the care of this patient. Next Appt Details Follow Up: prn, Reason: Progress Notes * Examination Category Sub-Category Detail Notes Examination/ Pre-Anesthesia Assessment General: The patient is alert and zaira ented X 3 in moderate distress secondary to pain HEENT: Normocephalic, atrau matic. PERRL. The oropharynx is clear Neck: There is limited ran ge of motion of the cervical spine to 60 degrees with extension and lateral rotation bilaterally. There is tenderness to palpation over the bilateral C3-4 through C7-T1 facet joints. Extension and lateral rotation of the cervical spine reproduces the patients typical axial neck pain. The axial loading test is positive. There is diffuse tenderness to palpation over the bilateral cervical paraspinal muscles and significant muscle spasm throughout. There are palpable myofascial trigger points within the body of the trapezius muscles bilaterally Heart: Regular rate and rhy thm Chest: Clear to auscultatio n bilaterally Abdomen: Soft and benign with normal bowel sounds throughout Musculoskeletal and Extremities: There i s tenderness to palpation over the bilateral L2-3 through L5-S1 facet joints. Extension and lateral rotation of the lumbar spine reproduces the patient's typical axial low back pain. Cristobal's, Whiteoak's and Gaenslen's are positive bilaterally. There is tenderness to palpation over the bilateral sacroiliac joints and greater trochanters. There is tenderness to palpation over the bilateral lumbar paraspinal muscles. There is positive impingement of the left shoulder at 70 degrees of abduction Neurological: There is positive st raight leg raising bilaterally. There are no focal strength deficits in the bilateral upper and lower extremities Skin: Clean, dry and intac t Psychiatric: Mood and affect are normal History and Physical Notes * HPI (History of Present Illness) Category Sub-Category Detail Notes Pain Management Radiographic Imaging MRI cervical spine done on 03/01/22 demonstrates a C5-7 anterior cervical discectomy and fusion. There is bilateral facet and uncovertebral hypertrophy from C3-4 through C6-7. At C3-4 there is mild left foraminal narrowing secondary to facet and uncovertebral hypertrophy. At C4-5 there is a broad-based disc osteophyte complex causing mild central canal stenosis. An MRI lumbar spine done on 03/17/24 demonstrates DDD and bilateral facet arthropathy at all levels of the lumbar spine. At L3-4 there is a posterior disc bulge with a right paracentral disc protrusion causing mild right lateral recess and foraminal stenosis. At L4-5 there is bilateral facet and ligamentum flavum hypertrophy. At L5-S1 there is DDD with a left paracentral disc herniation contacting the exiting left L5 spinal nerve root. There is moderate left and mild right lateral recess and foraminal stenosis. An x-ray left shoulder done on 09/30/24 demonstrates moderate acromioclavicular arthritis Assessment and Follow-up: Follow-up Plan documeraquel ashley:: Yes [facility] Quality 2020: [facility] Documented:: Compliant
== END 2024-12-04 11:13 | disposition home or self-care (01) ==
PROVIDERS: PCP Internal Medicine; Visit Provider Orthopaedic Surgery
DX: M75.02 Adhesive capsulitis of left shoulder (principal); M19.012 Primary osteoarthritis, left shoulder
CPT/HCPCS: 73221

== ENCOUNTER 2024-12-26 09:05 | Outpatient (CLI) | payer BC, SELFPAY ==
--- OUTSIDE RECORDS SUMMARY | 2024-12-26 09:09 | XMS_ITS | Referral Summary ---
Author Organization [facility] al Address [address] [place] [address] Care Team Providers Care Content Producer Name Role Phone Derrick Cain MD Primary Care Provider [phone] Judith Hernandez RN Unavailable Unavailabl e Reyes Sanchez DO Unavailable [phone] Encounters Date Type Department Care Team Description 12/17/2024 Documentation [facility] Transplant Kidney [address] [facility] [address] Mailstop [phone] [place] [address] Paula Rogers 12/11/2024 Documentation [facility] Transplant Kidney [address] [facility] [address] Mailop [phone] [place] [address] Paula Rogers 12/02/2024 Telephone [facility] Transplant Kidney [address] [facility] [address] Mailop [phone] [place] [address] Paula Rogers Referral - Kidney Txp 12/01/2024 Telephone [facility] Transplant Kidney [address] [facility] [address] Mailop [phone] [place] [address] Elizabeth Carolina Referral - Kidney Txp 11/27/2024 3:00 PM CDT Ancillary Procedure [facility] [address] [place] [address] Syncope and collapse; Essential hypertension; Sinus bradycardia; Dizziness 11/25/2024 Documentation [facility] Transplant Kidney [address] [facility] [address] Mailstop [phone] [place] [address] Paula Rogers 11/20/2024 2:15 PM CDT Ancillary Procedure [facility] [address] [place] [address] [address] [place] [address] Syncope and collapse; Essential hypertension; Sinus bradycardia; Dizziness 11/20/2024 Results Follow-Up [facility] Cardiology [address] [place] [address] [facility] [address] [place] [address] Ilsa Sesay MD ECG 12 lead, Transthoracic Echo (TTE) Complete W Doppler/CF, MCT Mobile Cardiac Telemetry Event Monitor 11/20/2024 1:30 PM CDT Office Visit [facility] Cardiology [address] [place] [address] [facility] [address] [place] [address] Ilsa Sesay MD Syncope and collapse (Primary Dx); Essential hypertension; Sinus bradycardia; Dizziness 11/19/2024 Telephone [facility] Cardiology [address] [facility] 8th [place] [address] [place] [address] Yomaira French 11/12/2024 Telephone [facility] Transplant Kidney [address] [facility] [address] Mailstop [phone] [place] [address] Fang Sow Referral - Kidney Txp 11/03/2024 Documentation [facility] Transplant Kidney [address] [facility] [address] Mailstop [phone] [place] [address] Elizabeth Carolina 11/03/2024 Telephone [facility] Transplant Kidney [address] [facility] [address] Mailstop [phone] [place] [address] OrElizabeth castillo Referral - Kidney Txp from Last 3 [...] 1:32 PM CDT Height 165.1 cm (5' 5) 11/20/2024 1:32 PM CDT Body Mass Index 30.79 11/20/2024 1:32 PM CDT Plan of Treatment Not on file Procedures Procedure Name Priority Date/Time Associated Diagnosis Comments TRANSTHORACIC ECHO (TTE) COMPLETE W DOPPLER/CF WO CONTRAST Routine 11/27/2024 4:02 PM CDT Syncope and collapse Essential hypertension Sinus bradycardia Dizziness MCT - MOBILE CARDIAC TELEMETRY EVENT MONITOR Routine 11/20/2024 2:37 PM CDT Syncope and collapse Essential hypertension Sinus bradycardia Dizziness ECG 12-LEAD Routine 11/20/2024 1:32 PM CDT Essential hypertension Syncope and collapse from Last 3 Months Results * TRANSTHORACIC ECHO (TTE) COMPLETE W DOPPLER/CF WO CONTRAST (11/27/2024 4:02 PM CDT) EF Mod BP 61 % CONS SCIMAGE Anatomical Region Laterality Modality Ultrasound 11/27/2024 3:12 PM CDT Narrative 11/30/2024 3:47 AM CDT [facility] Cardiac Diagnostic Lab [address], [address] [place] [address] Transthoracic Echocardiographic Report Patient Name: October : 1975 (49y 9m) Gender: F Study Date: 11/27/2024 03:12:58 PM Ht(Inch): 65 Wt(Lb): 184.97 BSA: 1.96 Goods Layer: RADHA Uribe Location: [facility] Order Provider: FROGGE,ILSA Heart Rate: 50 BMI: 30.78 BP: 126 / 80 Ref Provider: MARYILSA PROCEDURES: Echocardiographic Report: Transthoracic complete echo with [...] Procedure Note Raúl Casillas MD - 11/30/2024 [facility] Cardiac Diagnostic Lab [address] , [address] [place] [address] Transthoracic Echocardiographic Report Patient Name: October : 1975 (49y 9m) Gender: F Study Date: 11/27/2024 03:12:58 PM Ht(Inch): 65 Wt(Lb): 184.97 BSA: 1.96 Goods Layer: RADHA Uribe Location: [facility] Order Provider:ILSA SESAY Heart Rate: [...] LA Length 4C 5.34 cm MV Decel Yuvn713.97 msec [ 104.00 - 258.00 ] LA [...] MD CV ECHO PROCEDURES Final Result * MCT Mobile Cardiac Telemetry Event Monitor (11/20/2024 2:37 PM CDT) Anatomical Region Laterality Modality Electrocardiogra phy 11/20/2024 2:15 PM CDT Narrative 12/25/2024 10:18 AM CDT [facility] Cardiac Diagnostic Lab [address] , [address] [place] [address] CARDIAC EVENT MONITOR REPORT Patient Name: October : 1975 (49y 9m) Gender: F Study Date: 11/20/2024 02:15:00 PM Ht(Inch): Wt(Lb): BSA: Tech: Location: I Order Provider: ILSA SESAY BMI: Ref Provider: ILSA SESAY PROCEDURES: Event Report: [facility] MOBILE CARDIAC TELEMETRY EVENT MONITOR [[id number]]. Enrollment Period: 11/24/2024 - 12/23/2024. Patient Instructions: Patient picked up device from office and understand directions and use of the equipment. Location: [facility]. INDICATIONS: R55 Syncope and collapse, I10 Essential (primary) hypertension, R00.1 Bradycardia, unspecified, and R42 Dizziness and giddiness. FINDINGS: Event Data: Min Rate: 45 BPM Min Rate Timestamp: 2024-11-24 21:19:00 Max Rate: 96 BPM Max Rate Timestamp: 2024-11-24 18:43:00 Mean Rate: 58 BPM SIGNIFICANT PAUSES: 0 >3 sec SUMMARY: *The predominant rhythm was Sinus Rhythm. *The Maximum Heart Rate recorded was 96 BPM, 06:43 PM 11/24, the Minimum Heart Rate recorded was 45 BPM, 09:19 PM 6 and the Average Heart Rate was 58 BPM. *There were 16 VE beats with a burden of <1 %. *There were 37 SVE beats with a burden of <1 %. *There were 0 manually detected events. CONCLUSIONS: 1. I have reviewed the PDF and all the ECG strips. I agree with the interpretations as detailed in the report. 2. The PDF can be found in the [facility] Patient chart. Please go to the Cardiology tab, click on the holter or event exam. Scroll to bottom where the ORDER-LEVEL Documents reside and click the blue link to the pdf. Electronically Signed By: Guillermo Zheng MD 12/25/2024 10:03:00 AM CDT Electronically Signed By: Guillermo Zheng MD 12/25/2024 10:03:00 AM CDT Procedure Note Guillermo Zheng MD - 12/25/2024 [facility] Cardiac Diagnostic Lab [address] , [address] [place] [address] CARDIAC EVENT MONITOR REPORT Patient Name: October : 1975 (49y 9m) Gender: F Study Date: 11/20/2024 02:15:00 PM Ht(Inch): Wt(Lb): BSA: Tech: Location: [facility] Order Provider: ILSA SESAY BMI: Ref Provider: ILSA SESAY PROCEDURES: Event Report: [facility] MOBILE CARDIAC TELEMETRY EVENT MONITOR [[id number]]. Enrollment Period: 11/24/2024 - 12/23/2024. Patient Instructions: Patient picked up device from office and understanddirections and use of the equipment. Location: [facility]. INDICATIONS: R55 Syncope and collapse, I10 Essential (primary) hypertension, R00.1Bradycardia, unspecified, and R42 Dizziness and giddiness. FINDINGS: Event Data: Min Rate: 45 BPM Min Rate Timestamp: 2024-11-24 21:19:00 Max Rate: 96 BPM Max Rate Timestamp: 2024-11-24 18:43:00 Mean Rate: 58 BPM SIGNIFICANT PAUSES: 0 >3 sec SUMMARY: *The predominant rhythm was Sinus Rhythm. *The Maximum Heart Rate recorded was 96 BPM, 06:43 PM 5/6, the MinimumHeart Rate recorded was 45 BPM, 09:19 PM 5/6 and the Average Heart Rate was 58 BPM. *There were 16 VE beats with a burden of <1 %. *There were 37 SVE beats with a burden of <1 %. *There were 0 manually detected events. CONCLUSIONS: 1. I have reviewed the PDF and all the ECG strips. I agree with theinterpretations as detailed in the report. 2. The PDF can be found in the [facility] Patient chart. Please go to theCardiology tab, click on the holter or event exam. Scroll to bottom where the ORDER-LEVELDocuments reside and click the blue link to the pdf. Electronically Signed By: Guillermo Zheng MD 12/25/2024 10:03:00 AM CDT Electronically Signed By: Guillermo Zheng MD 12/25/2024 10:03:00 AM CDT Ilsa Sesay MD CV CARDIAC SERVICES PROCE DURMARK Final Result * ECG 12 lead (11/20/2024 1:32 PM CDT) Ilsa Sesay MD ECG ORDERABLES Edited Re sult - Final from Last 3 Months Insurance BLUE ACCESS OOS BLUE ACCESS OOS Care Teams Content Producer Relationship Specialty Start Date End Date Derrick Cain MD [facility] [address] [place] [address] PCP - General Internal Medicine 11/20/24 YearJudith christine softball winderFreight Hustler 12/02/24 Reyes Sanchez DO [address] [place] [address] 12/17/24 estrella cardona Secondary Kidney Coordinator 12/02/24
--- OUTSIDE RECORDS SUMMARY | 2024-12-26 09:09 | XMS_ITS | Patient Health Record ---
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 The patient has three children and plans to get on 10/11/24. The patient denies tobacco, alcohol, or illicit drug abuse. PROBLEMS Problem Type ICD Code Onset Dates Problem Status W/U Status Risk SNOMED Code Notes Problem Fear of injections and transfusions (F40.231) Active confirmed Fear of medical treatment (905200734) Problem Pain in left shoulder (M25.512) Active confirmed Shoulder joint pain (961661806) Problem Spondylosis without myelopathy or radiculopathy, lumbar region (M47.816) Active confirmed Lumbosacral spondylosis without myelopathy (57756443) Problem Radiculopathy, cervical region (M54.12) Active confirmed Cervical radiculopathy (38081944) Problem half-way (current) use of opiate analgesic (Z79.891) Active confirmed High risk drug monitoring status (216817945) Problem Lumbar radiculopathy (M54.16) Active confirmed Lumbar radiculopathy (835714634) Problem Other intervertebral disc degeneration, lumbar region [...] Location Date Provider Diagnosis [facility] [address] [place] [address] 10/08/2024 Jamey Stduniaick Lumbar radiculopathy M54.16 ; Other intervertebral disc degeneration, lumbar region with discogenic back pain and lower extremity pain M51.362 ; Spondylosis without myelopathy or radiculopathy, lumbar region M47.816 ; Radiculopathy, cervical region M54.12 ; Pain in left shoulder M25.512 ; half-way (current) use of opiate analgesic Z79.891 and Fear of injections and transfusions F40.231 ASSESSMENTS Encounter Date Diagnosis Assessment Notes Treatment Notes Treatment Clinical Notes Section Notes 10/08/2024 Lumbar radiculopathy (ICD-10 - M54.16) The patient was given an order for physical therapy. 10/08/2024 Other intervertebral disc degeneration, lumbar region with discogenic back pain and lower extremity pain (ICD-10 - M51.362) 10/08/2024 Spondylosis without myelopathy or radiculopathy, lumbar region (ICD-10 - M47.816) 10/08/2024 Radiculopathy, cervical region (ICD-10 - M54.12) 10/08/2024 Pain in left shoulder (ICD-10 - M25.512) 10/08/2024 half-way (current) use of opiate analgesic (ICD-10 - [...] Insured Coverage Start Date Coverage End Date [facility] [address] [place] [address] [id number] October Self - patient is the insured MEDICAL (GENERAL) HISTORY Medical History History ICD Code Insomnia Migraine Hypertension Polycystic kidney disease Depression Anxiety Surgical History Surgery Date(Month/Year) C5-7 ACDF 2016
--- OUTSIDE RECORDS SUMMARY | 2024-12-26 09:09 | XMS_ITS | Clinical Summary ---
Author Organization [facility] Address [address] [place] [address] Phone Care Team Providers Care Watershed Coordinator Name Role Phone Derrick Cain MD Primary Care Provider [phone] Allergies Active Allergy Reactions Criticality Noted Date [...] naloxone HCl (Narcan) 4 MG/0.1ML Liquid 1 [place] by Nasal route as needed for Opioid [...] by mouth nightly. 10/17/19 25 038 Active gabapentin (NEURONTIN) 300 MG Capsule Take 1 Capsule by mouth 2 times daily. 60 Capsule 3 10/20/19 25 Active Additional Information Patient taking differently:300 mg Oral 2 TIMES DAILY,Indications: Neuropathic Pain, Reported on 11/12/2024 escitalopram (LEXAPRO) 10 MG Tablet Take 1 Tablet by mouth daily. 90 Tablet 12/09/19 25 Active topiramate (TOPAMAX) 100 MG Tablet Take 1 Tablet by mouth every 12 hours. 180 Tablet 12/09/19 25 Active temazepam (RESTORIL) 15 MG CapsuleIndicati ons:Primary insomnia Take 1 Capsule by mouth nightly as needed for Sleep. 30 Capsule 12/17/19 25 Active oxyCODONE-Aceta minophen (PERCOCET) 10-325 MG TabletIndicatio ns:Chronic neck pain,Chronic bilateral low back pain with right-sided sciatica Take 1 Tablet by mouth 2 times daily as needed for Moderate or more severe pain or Severe pain. 28 Tablet 12/22/19 25 Active tiZANidine (ZANAFLEX) 4 MG Tablet Take 1 Tablet by mouth 3 times daily. 90 Tablet 12/22/19 25 Active carvedilol (COREG) 12.5 MG Tablet Take 12.5 mg by mouth 2 times daily. 10/17/19 25 025 Discontinu ed(Med List Clean Up) escitalopram (LEXAPRO) 10 MG Tablet Take 1 Tablet by mouth daily. 90 Tablet 10/20/19 25 025 Discontinu ed(Reorder ) topiramate (TOPAMAX) 100 MG Tablet Take 1 Tablet by mouth every 12 hours. 180 Tablet 10/20/19 25 025 Discontinu ed(Reorder ) temazepam (RESTORIL) 15 MG CapsuleIndicati ons:Primary insomnia Take 1 Capsule by mouth nightly as needed for Sleep for up to 30 days. 30 Capsule 11/15/19 25 025 Additional Information Patient taking differently:15 mg OralNIGHTLY, Reported on 11/27/2024 tiZANidine (ZANAFLEX) 4 MG Tablet Take 1 Tablet by mouth 3 times daily. 90 Tablet 11/11/19 25 025 Discontinu ed(Reorder ) oxyCODONE-Aceta minophen (PERCOCET) 10-325 MG TabletIndicatio ns:Chronic neck pain,Chronic bilateral low back pain with right-sided sciatica Take 1 Tablet by mouth 2 times daily as needed for Moderate or more severe pain or Severe pain. 28 Tablet 11/11/19 25 025 Discontinu ed(Reorder ) nitrofurantoin, monohydrate-mac rocrystal, (MACROBID) 100 MG Capsule Take 1 Capsule by mouth 2 times daily for 7 days. 14 Capsule 11/21/19 25 025 oxyCODONE-Aceta minophen (PERCOCET) 10-325 MG TabletIndicatio ns:Chronic neck pain,Chronic bilateral low back pain with right-sided sciatica Take 1 Tablet by mouth 2 times daily as needed for Moderate or more severe pain or Severe pain. 28 Tablet 12/09/19 25 025 Discontinu ed(Reorder ) tiZANidine (ZANAFLEX) 4 MG Tablet Take 1 Tablet by mouth 3 times daily. 90 Tablet 12/09/19 25 025 Discontinu ed(Reorder ) temazepam (RESTORIL) 15 MG Capsule Take 15 mg by mouth nightly as needed for Sleep. 11/17/19 25 025 Discontinu ed(Reorder ) Active Problems Problem Noted Date Diagnosed Date [...] Encounters Date Type Department Care Team Description 12/21/2024 [facility]ill [facility] [address] [place] [address] Derrick Cain MD Medication Refill 12/15/2024 Telephone [facility] [address] [place] [address] Derrick Cain MD Medication Refill 12/07/2024 Refill [facility] [address] [place] [address] Derrick Cain MD 12/04/2024 Refill [facility] [address] [place] [address] Derrick Cain MD Medication Refill 11/30/2024 Results Follow-Up [facility] Adult Pediatric Inpatient Virtual [address] [place] [address] Jigar Castellanos MD Pathology Surgical 11/27/2024 7:20 AM CDT Anesthesia Event [facility] Periop [address] [place] [address] Nitesh Bland APRN, CERTIFIED MEDICAL DOSIMETRIST 11/27/2024 7:00 AM CDT - 11/27/2024 7:30 AM CDT Surgery [facility] Periop [address] [place] [address] Jigar Castellanos MD COLONOSCOPY- COLON POLYPECTOMY AT 15 CM (COLD SNARE) 11/27/2024 6:40 AM CDT Ancillary Procedure [facility] Main [address] [place] [address] Jigar Castellanos MD 11/27/2024 6:31 AM CDT - 11/27/2024 8:29 AM CDT Hospital Encounter [facility] Preop/Pacu II [address] [place] [address] Jigar Castellanos MD Adenomatous rectal polyp Discharge Disposition: Discharged to home or Selfcare 11/27/2024 Travel 11/20/2024 Results Follow-Up [facility] [address] [place] [address] Jessy Lipscomb, PAC CULTURE, URINE 11/16/2024 [facility] [address] [place] [address] Derrick Cain MD Medication Refill 11/12/2024 Travel 11/10/2024 Telephone [facility] Gastroenterology [facility] [address] [facility] [place] [address] Jigar Castellanos MD 11/10/2024 [facility] [address] [place] [address] Derrick Cain MD Medication Refill 11/09/2024 Telephone [facility] [address] [place] [address] Sylvie Luis APRN, BAR HELPER Procedure; Appointment 10/29[facility] [address] [place] [address] Derrick Cain MD Medication Refill 10/[facility] [address] [place] [address] Derrick Cain MD Medication Refill 10/19/2024 3:30 PM CDT Office Visit [facility] [address] [place] [address] Derrick Cain MD Chronic bilateral low back pain with right-sided sciatica (Primary Dx); Primary insomnia; Screening for colorectal cancer; Chronic left shoulder pain; Polycystic kidney disease, autosomal dominant Discharge Disposition: Discharged to home or Selfcare 10/19/2024 Travel 10/15/2024 [facility] [address] [place] [address] [place] [address] Derrick Cain MD Medication Refill 10/08/2024 [facility] [address] [place] [address] Derrick Cain MD Medication Refill 10/01/2024 [facility] [place] [address] Derrick Cain MD Medication Refill 10/01/2024 Results Follow-Up [facility] Internal [facility] [address] [place] [address] Derrick Cain MD XR SHOULDER COMPLETE LEFT from Last 3 Months Family History Medical [...] on file Legal Sex Female 11:09 AM AIRLINE CAPTAIN Gender Identity Not on file Sexual Orientation [...] 9:59 AM CDT Height 165.1 cm (5' 5) 11/12/2024 9:59 AM CDT Body Mass Index 31.28 11/12/2024 9:59 AM CDT Plan of Treatment Upcoming Encounters Date Type Department Care Team (Late st Contact Info) Description 01/13/2025 8:00 AM CDT Office Visit [facility] [address] [place] [place] [address] Derrick Cain MD [address] [place] [place] [address] Health Maintenance Due Date Last Done Comments [...] 12/0 11/2022, 02/16/2021, Additional history exists Colonoscopy 11/27/2029 11/27/2024 Colorectal Cancer Screening 11/27/2029 Respiratory Syncytial Virus (RSV) Immunization (Adult) (1 [...] Procedure Name Priority Date/Time Associated Diagnosis Comments MRI UPPER EXTREMITY GENERIC 12/04/2024 12:00 AM CDT PATHOLOGY SURGICAL Routine 11/27/2024 7: 39 AM CDT COLON CA SCRN NOT HI RSK IND 11/27/2024 7:22 AM CDT COLONOSCOPY- COLON POLYPECTOMY AT 15 CM (COLD SNARE) Special Needs Hx CKD stage 4 - Dx screen COLORECTAL SCRN; HI RISK IND 11/27/2024 7:22 AM CDT COLONOSCOPY- COLON POLYPECTOMY AT 15 CM (COLD SNARE) Special Needs Hx CKD stage 4 - Dx screen [place] COLONOSCOPY FLX DX W/COLLJ SPEC WHEN PFRMD [...] EXTERNAL ORTHOPEDIC REFERRAL Routine 09/25/2024 12:00 AM AIRLINE CAPTAIN Chronic left shoulder pain ERIKA SCREENING SONALI W IMPL DIGITAL W CAD W ANAIS Routine 09/09/2024 3:33 PM AIRLINE CAPTAIN Breast cancer screening by mammogram from Last 3 Months or Most Recently Relevant to Health Maintenance Results * MRI UPPER EXTREMITY GENERIC (12/04/2024 12:00 AM CDT) 12/04/2024 us Provider Scan IMG MR ORDERABLES Final Result SCAN * Pathology Surgical (11/27/2024 7:39 AM CDT) Case Report Surgical Pathology Report Case: [id number] Authorizing Provider: Jigar Castellanos MD Collected: 11/27/2024 07:39 AM Ordering Location: [facility] Received: 11/27/2024 08:52 AM [facility] Gi Lab Main Pathologist: Yohana Dacosta MD PhD Specimen: Colon, COLON POLYP AT 15 CM 11/30/2024 11:22 AM CDT [facility] FINAL DIAGNOSIS Colon polyp at 15 cm, polypectomy: - Tubular adenoma 11/30/2024 11:22 AM CDT [facility] at 1122 CDT Pre-Operative Diagnosis SCREENING COLON CANCER 11/30/2024 11:22 AM CDT [facility] Gross Description A. COLON POLYP AT [...] 7 minutes. KS/sb 11/30/2024 11:22 AM CDT [facility] Microscopic Description Microscopic examination was performed which supports the final diagnosis. All control tissues stained appropriately. 11/30/2024 11:22 AM CDT [facility] Tissue COLON STRUCTURE / Unknown 11/27/2024 7:39 AM CDT 11/27/2024 8:52 AM CDT us Jigar Castellanos MD PATHOLOGY/CYTOLOGY ORDERAB LES Final Result [facility] [address] [place] [address] * GI IMAGING - COLONOSCOPY (11/27/2024 6:37 AM CDT) us Jigar Castellanos MD IMG DIAGNOSTIC ORDERABLES Final Result * XR - CHEST (11/18/2024 12:00 AM CDT) 11/18/2024 us Provider Scan IMG DIAGNOSTIC ORDERABLES Final Result Performing Organization Address [facility] de Phone Number SCAN * CULTURE - MISCELLANEOUS (11/18/2024 12:00 AM CDT) 11/18/2024 us Provider Scan MICROBIOLOGY - GENERAL ORDERABLE S Final Result Performing Organization Address [facility] de Phone Number SCAN * URINALYSIS (UA) RANDOM (11/18/2024 12:00 AM CDT) 11/18/2024 us Provider Scan URINE ORDERABLES Final Result Performing Organization Address [facility] de Phone Number SCAN * CULTURE, URINE (11/18/2024 12:00 AM CDT) 11/18/2024 us Derrick Cain MD MICROBIOLOGY - GENERAL ORDGeovanna RABSB Final Result Performing Organization Address [facility] de Phone Number SCAN * CMP (COMPREHENSIVE METABOLIC PANEL) (11/18/2024 12:00 AM CDT) 11/18/2024 us Provider Scan CHEMISTRY ORDERABLES Final Resul t Performing Organization Address [facility] de Phone Number SCAN * COMPLETE BLOOD COUNT (CBC) WITH DIFF (11/18/2024 12:00 AM CDT) 11/18/2024 us Provider Scan HEMATOLOGY ORDERABLES Final Resu lt Performing Organization Address [facility] de Phone Number SCAN * EXTERNAL PAIN REFERRAL (10/08/2024 12:00 AM CDT) 10/08/2024 Derrick Cain MD OUTPT REFERRALS EXT/INT Fin al Result Performing Organization Address [facility] de Phone Number SCAN * PAIN CONSULT (10/07/2024 12:00 AM CDT) 10/07/2024 Derrick Cain MD GENERIC SCAN ORDERS CONSULT Final Result Performing Organization Address [facility] de Phone Number SCAN * EXTERNAL ORTHOPEDIC REFERRAL (09/25/2024 12:00 AM AIRLINE CAPTAIN) 09/25/2024 Derrick Cain MD OUTPT REFERRALS EXT/INT Fin al Result Performing Organization Address [facility] de Phone Number SCAN * REIKA SCREENING SONALI W IMPL DIGITAL W CAD W ANAIS (09/09/2024 3:33 PM AIRLINE CAPTAIN) Anatomical Region Laterality Modality breast Bilateral Mammography 09/09/2024 3:20 PM AIRLINE CAPTAIN Narrative 09/24/2024 9:36 AM AIRLINE CAPTAIN - ERIKA SCREENING SONALI W IMPL DIGITAL [...] next screening exam. Electronically signed by: Kaleb Carranza M.D. ll/penrad:09/23/2024 22:44:46 Electrical And Instrument Mechanic(s): RT Franklin(R)(M), [facility] letter sent: Normal Exam Reading location: [place] [...] next screening exam. Electronically signed by: Kaleb Carranza M.D. ll/penrad:09/23/2024 22:44:46 Electrical And Instrument Mechanic(s): RT Franklin(R)(M), [facility] letter sent: Normal Exam Reading location: [place] Mammogram BI-RADS: Category 1: Negative Derrick Cain MD IMG MAMMO ORDERABLES Final Result from Last 3 Months or Most Recently Relevant to Health Maintenance Insurance [facility] Care Teams Watershed Coordinator Relationship Specialty Start Date End Date Derrick Cain MD [address] [place] [address] PCP - General Internal Medicine 08/18/24
--- OUTSIDE RECORDS SUMMARY | 2024-12-26 09:09 | XMS_ITS | Encounter Summary ---
Author Organization [facility] Address [address] [place] [address] Phone Care Team Providers Care Medical Service Representative Name Role Phone Derrick Cain MD Primary Care Provider [phone] Yearout, Judith Hollins RN Unavailable Unavailabl e Daniel Reyes Jenny DO Unavailable [phone] Encounter Details Date Type Department Care Team (Latest Contact Info) Description 11/20/2024 Results Follow-Up [facility] [address] [place] [address] Suhail Sesay MD [address] [place] [address] ECG 12 lead, Transthoracic Echo (TTE) Complete W Doppler/CF, MCT Mobile Cardiac Telemetry Event Monitor Social History Tobacco Use Types Packs/Day Years [...] on filedocumented in this encounter Care Teams Medical Service Representative Relationship Specialty Start Date End Date Derrick Cain MD [address] [place] [address] [address] PCP - General Internal Medicine 11/20/24 Yearout, Judith Hollins, electrical discharge machine operatorNca Certified Concierge 12/02/24 Reyes Sanchez DO [address] [id number] 12/17/24 estrella cardona Secondary Kidney Coordinator 12/02/24 documented as of this encounter
--- OUTSIDE RECORDS SUMMARY | 2024-12-26 09:09 | XMS_ITS ---
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 The patient has three children and plans to get on 10/11/24. The patient denies tobacco, alcohol, or illicit drug abuse. 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) Active confirmed Problem Spondylosis without myelopathy or radiculopathy, lumbar region (M47.816) Active confirmed Lumbosacral spondylosis without myelopathy (95722542) Problem Radiculopathy, cervical region (M54.12) Active confirmed Cervical radiculopathy (86869270) Problem Pain in left shoulder (M25.512) Active confirmed Shoulder joint pain (314964361) Problem intermediate designer (current) use of opiate analgesic (Z79.891) Active confirmed High risk drug monitoring status (899949906) Problem Fear of injections and transfusions (F40.231) Active confirmed Fear of medical treatment (411106192) VITAL SIGNS Blood pressure systolic 161 mm Hg 10/09/19 25 Blood pressure diastolic 104 mm Hg 025 Heart Rate 63 /min 10/08/2024 Respiratory Rate 16 /min 10/08/2024 Height 5 ft 5 in in 10/08/2024 Weight 199 lbs 10/08/2024 BMI 33.11 kg/m2 10/08/2024 Encounters Encounter Location Date Provider Diagnosis [facility] [address] [place] [address] 10/08/2024 Jamey Vyas Lumbar radiculopathy M54.16 ; Other intervertebral disc degeneration, lumbar region with discogenic back pain and lower extremity pain M51.362 ; Spondylosis without myelopathy or radiculopathy, lumbar region M47.816 ; Radiculopathy, cervical region M54.12 ; Pain in left shoulder M25.512 ; intermediate designer (current) use of opiate analgesic Z79.891 and [...] in left shoulder (ICD-10 - M25.512) 10/08/2024 intermediate designer (current) use of opiate analgesic (ICD-10 - [...] giv en an order for physical therapy. intermediate designer (current) use of opiate analge sic The patient was given the contact information of pain specialists in the area who offer chronic opioid medication management. Other Thank you Dr. King jaffe or your kind referral and for involving me in the care of this patient. Next Appt Details Follow Up: prn, Reason: Progress Notes * Examination Category Sub-Category Detail Notes Category Not es Examination/ Pre-Anesthesia Assessment General: The patient is alert and oriented X 3 in moderate distress secondary to [...] patient's typical axial low back pain. Cristobal's, Canyon's and Gaenslen's are positive bilaterally. There is [...] of Present Illness) Category Sub-Category Detail Notes Category Not es Pain Management Radiographic Imaging MRI cervical spine [...] and Follow-up: Follow-up Plan documeraquel ashley:: Yes MIPS Quality 2020: MIPS Documented:: Compliant
--- OUTSIDE RECORDS SUMMARY | 2024-12-26 09:09 | XMS_ITS ---
Author Organization [facility] Address [address] [place] [address] Care Team Providers Care Aquatic Life Laborer Name Role Phone Derrick Cain MD Primary Care Provider [phone] Judith Hernandez RN Unavailable Unavailabl e Reyes Sanchez DO Unavailable [phone] Transplant Episode Kidney Candidate [facility] ([place], [place]) - [facility] Referred on 11/03/2024 Marked as Active on 12/10/2024 Reason: Finance Approved Ready for Evaluation Kidney CoordinatorJudith Hernandez RN Phone: N/A Fax: N/A Email: N/A Scores Score Value Updated Exceptions/Reas ons CPRA Not available EPTS (Calc) 16 12/26/2024 Care Team Name Role Phone Fax Email Judith Hernandez RN Kidney Coordinator N/A N/A N/A Paula Rogers Primary Embryology Teacher N/A N/A N/A Rachel Blount Foley Artist [phone] N/A N/A Reyes Sanchez DO Referring Physician [phone] N/A Events Pre-Transplant Referred: 11/03/2024
--- OUTSIDE RECORDS SUMMARY | 2024-12-26 09:09 | XMS_ITS | Clinical Summary ---
Author Organization [facility] Address [address] [place] [address] Phone Care Team Providers Care Porter Head Name Role Phone Michelet Centeno MD Primary Care Provider [phone] Allergies Active Allergy Reactions Criticality Noted Date [...] P M CDT Height 170.2 cm (5' 7) 11/12/2023 1:42 PM CDT Body Mass Index [...] Vaccine (Season Ended) 2025 04/21/20, 04/21/2022 [place] [address] [facility] Care Teams Porter Head Relationship Specialty Start Date End Date Michelet Centeno MD [address] [place] [address] B [place] [address] PCP - General Family Medicine 11/12/23
--- OUTSIDE RECORDS SUMMARY | 2024-12-26 09:09 | XMS_ITS | Clinical Summary ---
Author Organization [facility] al Address 1 [place] [address] Care Team Providers Care Tile Mason Name Role Phone Derrick Cain MD Primary Care Provider [phone] Judith Hernandez RN Unavailable Unavailabl e Reyes Sanchez DO Unavailable [phone] Allergies Active Allergy Reactions Criticality Noted Date [...] Type Department Care Team Description 12/17/2024 Documentation [facility] Transplant Kidney [address] [facility] [address] [place] [place] [address] Paula Rogers 12/11/2024 Documentation [facility] Transplant Kidney 45[address] [facility] 340 Mailop [facility] [place] [address] Paula Rogers 12/02/2024 Telephone [facility] Transplant Kidney 45[address] [facility] 340 Mailop [facility] [place] [address] Paula Rogers Referral - Kidney Txp 12/01/2024 Telephone [facility] Transplant Kidney [address] [place] [address] 340 [address] 1 [place] [address] Elizabeth Carolina Referral - Kidney Txp 11/27/2024 3:00 PM CDT Ancillary Procedure [facility] [address] [address] [address] [place] [address] Syncope and collapse; Essential hypertension; Sinus bradycardia; Dizziness 11/25/2024 Documentation [facility] Transplant Kidney 45[address] [facility] [address] -[address] [place] [address] Paula Rogers 11/20/2024 2:15 PM CDT Ancillary Procedure [facility] 1020 [facility] [address] [place] [address] Syncope and collapse; Essential hypertension; Sinus bradycardia; Dizziness 11/20/2024 1:30 PM CDT Office Visit [facility] Cardiology [address] [facility] Office Building [address] [place] [address] Ilsa Sesay MD Syncope and collapse (Primary Dx); Essential hypertension; Sinus bradycardia; Dizziness 11/20/2024 Results Follow-Up [facility] Cardiology [address] [place] [address] Office Building [address] [place] [address] Ilsa Sesay MD ECG 12 lead, Transthoracic Echo (TTE) Complete W Doppler/CF, MCT Mobile Cardiac Telemetry Event Monitor 11/19/2024 Telephone [facility] Cardiology 49[address] [facility] Advanced Medicine 8th [place] [address] [place] [address] Yomaira French 11/12/2024 Telephone [facility] Transplant Kidney 45[address] [facility] 3401 [address] 90-01-425 [place] [address] Fang Sow Referral - Kidney Txp 11/03/2024 Documentation [facility] Transplant Kidney 45[address] [facility] 3401 [address] 90-22-635 [place] [address] Elizabeth Carolina 11/03/2024 Telephone [facility] Transplant Kidney 45[address] [facility] 3401 [address] 90-77-311 [place] [address] Elizabeth Carolina Referral - Kidney Txp from [...] PM CDT Narrative 11/30/2024 3:47 AM CDT [facility] Cardiac Diagnostic Lab [address], [address] [place] [address] Transthoracic Echocardiographic Report Patient Name: CHRISTINEOctober : 1975 (49y 9m) Gender: F Study Date: 11/27/2024 03:12:58 PM Ht(Inch): 65 Wt(Lb): 184.97 BSA: 1.96 Glass Wool Blanket Machine Feeder: RADHA Uribe Location: [facility] Order Provider: ILSA SESAY Heart Rate: 50 [...] Procedure Note Raúl Casillas MD - 11/30/2024 [facility] Cardiac Diagnostic Lab [address] [place] [address] Transthoracic Echocardiographic Report Patient Name: October : 1975 (49y 9m) Gender: F Study Date: 11/27/2024 03:12:58 PM Ht(Inch): 65 Wt(Lb): 184.97 BSA: 1.96 Glass Wool Blanket Machine Feeder: RADHA Uribe Location: [facility] Order Provider:ILSA ESSAY Heart Rate: 50 BMI: 30.78 BP: 126 [...] LA Length 4C 5.34 cm MV Decel Onvl425.97 msec [ 104.00 - 258.00 ] LA [...] MD CV ECHO PROCEDURES Final Result * [facility] Mobile Cardiac Telemetry Event Monitor (11/20/2024 2:37 PM CDT) Anatomical Region Laterality Modality Electrocardiogra phy 11/20/2024 2:15 PM CDT Narrative 12/25/2024 10:18 AM CDT [facility] Cardiac Diagnostic Lab [address] , [address] [place] [address] CARDIAC EVENT MONITOR REPORT Patient Name: October : 1975 (49y 9m) Gender: F Study Date: 11/20/2024 02:15:00 PM Ht(Inch): Wt(Lb): BSA: Tech: Location: I Order Provider: ILSA SESAY BMI: Ref Provider: MARY ILSA PROCEDURES: Event Report: [facility] MOBILE CARDIAC TELEMETRY EVENT MONITOR [[id number]]. Enrollment Period: 11/24/2024 - 12/23/2024. Patient Instructions: Patient picked up device from office and understand directions and use of the equipment. Location: [facility]. INDICATIONS: R55 Syncope and collapse, I10 Essential [...] was 96 BPM, 06:43 PM 5/6, the Minimum Heart Rate recorded was 45 [...] The PDF can be found in the Epic Patient chart. Please go to the Cardiology tab, click on the holter or event exam. Scroll to bottom where the ORDER-LEVEL Documents reside and click the blue link to the pdf. Electronically Signed By: Guillermo Zheng MD 12/25/2024 10:03:00 AM CDT Electronically Signed By: Guillermo Zheng MD 12/25/2024 10:03:00 AM CDT Procedure Note Guillermo Zheng MD - 12/25/2024 [facility] Cardiac Diagnostic Lab [address], [address] [place] [address] CARDIAC EVENT MONITOR REPORT Patient Name: October : 1975 (49y 9m) Gender: F Study Date: 11/20/2024 02:15:00 PM Ht(Inch): Wt(Lb): BSA: Tech: Location: [facility] Order Provider: ILSA SESAY BMI: Ref Provider: ILSA SESAY PROCEDURES: Event Report: [facility] MOBILE CARDIAC TELEMETRY EVENT MONITOR [[id number]]. Enrollment Period: 11/24/2024 - 12/23/2024. Patient Instructions: Patient picked up device from office and understanddirections and use of the equipment. Location: [facility]. INDICATIONS: R55 Syncope and collapse, I10 Essential (primary) hypertension, R00.1Bradycardia, unspecified, and R42 Dizziness and giddiness. FINDINGS: Event Data: Min Rate: 45 BPM Min Rate Timestamp: 2024-11-24 21:19:00 Max Rate: 96 BPM Max Rate Timestamp: 2024-11-24 18:43:00 Mean Rate: 58 BPM SIGNIFICANT PAUSES: 0 >3 sec SUMMARY: *The predominant rhythm was Sinus Rhythm. *The Maximum Heart Rate recorded was 96 BPM, 06:43 PM 56, the MinimumHeart Rate recorded was 45 BPM, [...] The PDF can be found in the Epic Patient chart. Please go to theCardiology tab, click on the holter or event exam. Scroll to bottom where the ORDER-LEVELDocuments reside and click the blue link to the pdf. Electronically Signed By: Guillermo Zheng MD 12/25/2024 10:03:00 AM CDT Electronically Signed By: Guillermo Zheng MD 12/25/2024 10:03:00 AM CDT us Ilsa Sesay MD CV CARDIAC SERVICES PROCE DURES Final Result * ECG 12 lead (11/20/2024 1:32 PM CDT) us Ilsa Sesay MD ECG ORDERABLES Edited Re sult - Final from Last 3 Months Insurance [employer]os [employer] Ter[employer] Care Teams Tile Mason Relationship Specialty Start Date End Date Derrick Cain MD [address] [place] [address] PCP - General Internal Medicine 11/20/24 Yearout, Judith Hollins personal trainerHogshead Weigher 12/02/24 Reyes Sanchez DO [address] [place] [address] 12/17/24 estrella cardona Secondary Kidney Coordinator 12/02/24
--- OUTSIDE RECORDS SUMMARY | 2024-12-26 09:09 | XMS_ITS | Encounter Summary ---
Author Organization [facility] Address [address] [place] [address] Phone Care Team Providers Care Tooth Cutter Contact Wheel Name Role Phone Derrick Cain MD Primary Care Provider [phone] Encounter Details Date Type Department Care Team (Late Contact Info) Description 11/30/2024 Results Follow-Up [facility] Adult Pediatric Inpatient Virtual 1 [place] [id number] Jigar Castellanos MD [address] [address] Pathology Surgical Social History Tobacco Use Types [...] on file Legal Sex Female 11:09 AM ACCOUNTING ADVISORY SERVICES MANAGER Gender Identity Not on file Sexual Orientation Not on file documented as of this encounter Plan of Treatment Upcoming Encounters Date Type Department Care Team (Late st Contact Info) Description 01/13/2025 8:00 AM CDT Office Visit [facility] - Internal Medicine - [place] [address] [place] [address] Derrick Cain MD [address] [place] [address] documented as of this encounter Visit Diagnoses Not on filedocumented in this encounter Additional Health Concerns Assessment Noted Time PHQ-9 Depression Total Score: 0 08/18/19 3:32 PM ACCOUNTING ADVISORY SERVICES MANAGER documented as of this encounter Care Teams Tooth Cutter Contact Wheel Relationship Specialty Start Date End Date Derrick Cain MD [address] [address] PCP - General Internal Medicine 08/18/24 documented as of this encounter
[2024-12-26 10:14] LABS: INR 1.1; Prothrombin Time 14.2 Seconds (11.1-14.7)
[2024-12-26 10:15] LABS: Partial Thromboplastin Time 27.7 Seconds (22.3-36.8)
== END 2024-12-26 09:06 | disposition home or self-care (01) ==
LOC: ANHLAB 09:07
PROVIDERS: PCP Internal Medicine; Visit Provider Anesthesiology
DX: N18.9 Chronic kidney disease, unspecified (principal)
CPT/HCPCS: 36415; 85610; 85730

== ENCOUNTER 2024-12-31 03:37 | Day surgery (SDC) | payer BC, SELFPAY ==
[2024-12-24 12:50] VITALS: BMI 29.1
--- NOTE | 2024-12-24 13:00 | PC.NURSE ---
Report to the Outpatient Waiting Room, entrance under the green pavilion located off [facility], at time _1030_ on date _[id number]_. Planned Procedure Time: _1230_.? Time changes happen often and if your time is changed the preop area will call you the afternoon before. - You and your visitor will be asked to self-screen and do not enter if you have any COVID symptoms. Please call surgeon if you need to reschedule. - A mask is optional within the hospital at this time. Patients may have clear liquids (water, carbonated beverages, clear teas, apple juice) until 3 hours prior to surgery with a maximum of 20 ounces. - No food from midnight until time of surgery and no smoking, or chewing tobacco (or any form of nicotine). No chewing gum, candy or mints. Take only the following medications with a SIP of water on the morning of surgery: __Amlodipine, Gabapentin, and Percocet. DO NOT STOP ANY OF YOUR OTHER PRESCRIPTION MEDICATIONS PRIOR TO SURGERY EXCEPT THE FOLLOWING Hold all vitamins and supplements for 3 days per anesthesiologist. Medications to discontinue per physician Date to take last dose Please no make-up, nail iraqi, hairspray, perfume, deodorant, or body powder the day of surgery.? No jewelry (including any body piercings) or valuables the day of surgery, leave them at home.? Please take a shower or bath the night before, or the morning of, surgery with an antibacterial soap.? Wear comfortable, loose fitting clothing.? - Jewelry must be removed prior to entering the operating room.? Rings and piercings that are not removed may be cut off. - The hospital will not accept responsibility for valuables.? - Please leave all valuables, including medications, at home the day of surgery. If you are going home after surgery, a licensed sales warehouse driver must drive you home.? - NO public transportation without another adult if you receive anesthesia. - We recommend that an adult stay with you for 24 hours following discharge. - We also recommend that you do not drive, make important decision, drink alcoholic beverages, or take any drugs that were not prescribed by your health care provider for at least 24 hours after your discharge time. Follow any additional instructions given to you from your surgeon. Telephone instructions given to __October__and asked if any additional questions and then verbalized understanding. Patient advised to call surgeon office or pre surgery nurse liaison [phone] if any additional questions.
[2024-12-31] VITALS (12 sets, daily range): BP systolic 114–154; BP diastolic 72–101; PULSE 49–82; RESP 12–18; TEMP 36.1–37; O2SAT 95–100; BMI 31.2
--- OUTSIDE RECORDS SUMMARY | 2024-12-31 03:39 | XMS_ITS | Clinical Summary ---
Author Organization [facility] Address [address] [facility] [address] [place] [address] Phone Care Team Providers Care Supervisor Landscape Name Role Phone Michelet Centeno MD Primary Care Provider [phone] Allergies Active Allergy Reactions Criticality Noted Date [...] Vaccine (Season Ended) 2025 04/21/20, 04/21/2022 [place] [address] [facility] Care Teams Supervisor Landscape Relationship Specialty Start Date End Date Michelet Centeno MD [address] [place] [address] [address] [place] [address] PCP - General Family Medicine 11/12/23
--- OUTSIDE RECORDS SUMMARY | 2024-12-31 03:39 | XMS_ITS | Clinical Summary ---
Author Organization [facility] al Address 1 [place] [address] Care Team Providers Care Home Care Coordinator Name Role Phone Derrick Cain MD Primary Care Provider [phone] Judith Hernandez RN Unavailable Unavailabl e Reyes Sanchez DO Unavailable [phone] Allergies Active Allergy Reactions Criticality Noted Date [...] Encounters Date Type Department Care Team Description 12/28/2024 Telephone [facility] Cardiology [address] [place] [address] Medical Office [facility] 3 [address] [place] [address] Ilsa Sesay MD Heart monitor results; Scheduling Testing/Treatment (Stress Test scheduling) 12/17/2024 Documentation [facility] Transplant Kidney [address] [address] Mail[address] [facility] [place] [address] Paula Rogers 12/11/2024 Documentation [facility] Transplant Kidney 4590 [facility] 340 Mailstop -[address] [place] [address] Paula Rogers 12/02/2024 Telephone [facility] Transplant Kidney [address] [address] [address] -[address] [place] [address] Paual Rogers Referral - Kidney Txp 12/01/2024 Telephone [facility] Transplant Kidney 4590 [facility] 340 [address] 90-290 [place] [address] Elizabeth Carolina Referral - Kidney Txp 11/27/2024 3:00 PM CDT Ancillary Procedure [facility] [address] [place] [address] 3 [address] [place] [address] Syncope and collapse; Essential hypertension; Sinus bradycardia; Dizziness 11/25/2024 Documentation [facility] Transplant Kidney 4590 [facility] [address] Mailstop -02-363 [place] [address] SueRosemor CordovaBob 11/20/2024 2:15 PM CDT Ancillary Procedure [facility] 1020 [facility] [address] [place] [address] Syncope and collapse; Essential hypertension; Sinus bradycardia; Dizziness 11/20/2024 1:30 PM CDT Office Visit [facility] Cardiology [address] [place] [address] 3 [address] [place] [address] Ilsa Sesay MD Syncope and collapse (Primary Dx); Essential hypertension; Sinus bradycardia; Dizziness 11/20/2024 Results Follow-Up [facility] Cardiology [address] [place] [address] 3 [address] [place] [address] Ilsa Sesay MD ECG 12 lead, Transthoracic Echo (TTE) Complete W Doppler/CF, MCT Mobile Cardiac Telemetry Event Monitor 11/19/2024 Telephone [facility] Cardiology 49[address] [facility] Medicine 8th [place] [address] [place] [address] Yomaria French 11/12/2024 Telephone [facility] Transplant Kidney 4590 [facility] [address] [place] [address]04-6 [place] [address] Fang Sow Referral - Kidney Txp 11/03/2024 Documentation [facility] Transplant Kidney 45[address] [facility] 3401 Mailop -09-813 [place] [address] Elizabeth Carolina 11/03/2024 Telephone [facility] Transplant Kidney 4590 [facility] 3401 Mailop -[phone] [place] [address] Elizabeth Carolina Referral - Kidney Txp from [...] Vaccine (1 of 2) 02/01/2024 Covid-19 Vaccine ( - 2023-2 5 season) 2024 09/09/2020, 09/01/2020, [...] [facility] Cardiac Diagnostic Lab [address], [address] [place] [address] Transthoracic Echocardiographic Report Patient Name: October : 1975 (49y 9m) Gender: F Study Date: 11/27/2024 03:12:58 PM Ht(Inch): 65 Wt(Lb): 184.97 BSA: 1.96 Grading Supervisor: RADHA Uribe Location: [facility] Order Provider: ILSA SESAY Heart [...] [facility] Card[facility] Lab [address], [address] [place] [address] Transthoracic Echocardiographic Report Patient Name: EMMETTOctober : 1975 (49y 9m) Gender: F Study Date: 11/27/2024 03:12:58 PM Ht(Inch): 65 Wt(Lb): 184.97 BSA: 1.96 Grading Supervisor: RADHA Uribe Location: [facility] Order Provider:LISA SESAY Heart Rate: 50 BMI: 30.78 BP: [...] LA Length 4C 5.34 cm MV Decel Qhby921.97 msec [ 104.00 - 258.00 ] LA [...] [address], [address] [place] [address] CARDIAC EVENT MONITOR REPORT Patient Name: EMMETTOctober : 1975 (49y 9m) Gender: F Study Date: 11/20/2024 02:15:00 PM Ht(Inch): Wt(Lb): BSA: Tech: Location: [facility] Order Provider: ILSA SESAY BMI: Ref Provider: ILSA SESAY PROCEDURES: Event Report: [facility] MOBILE CARDIAC TELEMETRY EVENT MONITOR [[id number]]. Enrollment Period: 11/24/2024 - 12/23/2024. Patient Instructions: Patient picked up device from office and understand directions and use of the equipment. Location: [facility]. INDICATIONS: R55 Syncope and collapse, [...] was 96 BPM, 06:43 PM 56, the Minimum Heart Rate recorded was 45 [...] The PDF can be found in the [facility] Patient chart. Please go to the Cardiology [...] [facility] [address], [address] [place] [address] CARDIAC EVENT MONITOR REPORT Patient Name: October : 1975 (49y 9m) Gender: F Study Date: 11/20/2024 02:15:00 PM Ht(Inch): Wt(Lb): BSA: Tech: Location: [facility] Order Provider: ILSA SESAY BMI: Ref Provider: ILSA SESAY PROCEDURES: Event Report: [facility] MOBILE CARDIAC TELEMETRY EVENT MONITOR [[id number]]. Enrollment Period: 11/24/2024 - 12/23/2024. Patient Instructions: Patient picked up device from office and understanddirections and use of the equipment. Location: [facility]. INDICATIONS: R55 Syncope and collapse, [...] Rate recorded was 96 BPM, 06:43 PM 6, the MinimumHeart Rate recorded was 45 BPM, [...] The PDF can be found in the [facility] Patient chart. Please go to theCardiology tab, click on the holter or event exam. Scroll to bottom where the ORDER-LEVELDocuments reside and click the blue link to the pdf. Electronically Signed By: Guillermo Zheng MD 12/25/2024 10:03:00 AM CDT Electronically Signed By: Guillermo Zheng MD 12/25/2024 10:03:00 AM CDT us Ilsa Sesay MD CV CARDIAC SERVICES PROCE [facility] Final Result * ECG 12 lead (11/20/2024 1:32 PM CDT) us Ilsa Sesay MD ECG ORDERABLES Edited Re sult - Final from Last 3 Months Insurance [employer] OOS Member Subscriber Plan / Payer (Ef fective 2024-Present) Name:Vida Christine Relation to Subscriber:Self Name:Vida Christine Payer ID:[id number] (NAIC) Type:[employer] Address: [facility] [id number] [place] [address] [employer] OOS Care Teams Home Care Coordinator Relationship Specialty Start Date End Date Derrick Cain MD [address] [place] [address] PCP - General Internal Medicine 11/20/24 YearJudith christine, final finisherTape Making Machine Operator 12/02/24 Reyes Sanchez DO [address] [place] [address] 12/17/24 estrella cardona Secondary Kidney Coordinator 12/02/24
--- OUTSIDE RECORDS SUMMARY | 2024-12-31 03:39 | XMS_ITS | Referral Summary ---
Author Organization [facility] al Address 1 [place] [address] Care Team Providers Care Employee Welfare Manager Name Role Phone Derrick Cain MD Primary Care Provider [phone] Judith Hernandez RN Unavailable Unavailabl e Reyes Sanchez DO Unavailable [phone] Encounters Date Type Department Care Team Description 12/28/2024 Telephone [facility] Cardiology [facility] Office Building [address] [place] [address] Ilsa Sesay MD Heart monitor results; Scheduling Testing/Treatment (Stress Test scheduling) 12/17/2024 Documentation [facility] Transplant Kidney [address] [address] Mailop [phone] [place] [address] Paula Rogers 12/11/2024 Documentation [facility] Transplant Kidney 4590 [facility] 340 [address] 35-45-287 [place] [address] Paula Rogers 12/02/2024 Telephone [facility] Transplant Kidney 45[address] [facility] 340 [address] 37-11-423 [place] [address] Paula Rogers Referral - Kidney Txp 12/01/2024 Telephone [facility] Transplant Kidney 45[address] [facility] 340 Mailop 39-38-723 [place] [address] Elizabeth Carolina Referral - Kidney Txp 11/27/2024 3:00 PM CDT Ancillary Procedure [facility] [address] [place] [address] [address] [place] [address] Syncope and collapse; Essential hypertension; Sinus bradycardia; Dizziness 11/25/2024 Documentation [facility] and [facility] Transplant Kidney 4590 [facility] 3401 [address] [id number] [place] [address] Paula Rogers 11/20/2024 2:15 PM CDT Ancillary Procedure [facility] [address] [place] [address] 3 [address] [place] [address] Syncope and collapse; Essential hypertension; Sinus bradycardia; Dizziness 11/20/2024 Results Follow-Up [facility] Cardiology [address] [place] [address] Medical Office Building [address] [place] [address] Ilsa Sesay MD ECG 12 lead, Transthoracic Echo (TTE) Complete W Doppler/CF, MCT Mobile Cardiac Telemetry Event Monitor 11/20/2024 1:30 PM CDT Office Visit [facility] Cardiology [address] [place] [address] Medical Office Building [address] [place] [address] Ilsa Sesay MD Syncope and collapse (Primary Dx); Essential hypertension; Sinus bradycardia; Dizziness 11/19/2024 Telephone [facility] Cardiology [address] [place] [address] 8th [place] [address] [place] [address] Yomaira French 11/12/2024 Telephone [facility] and [facility] Transplant Kidney [address] [facility] [address] 3 [place] [address] Fang Sow Referral - Kidney Txp 11/03/2024 Documentation [facility] and [facility] Transplant Kidney [address] [facility] [address] [place] [address] Elizabeth Carolina 11/03/2024 Telephone [facility] and [facility] Transplant Kidney 4590 [facility] 3401 [address] 9029-437 [place] [address] Elizabeth Carolina Referral - Kidney Txp from [...] PM CDT Narrative 11/30/2024 3:[address] [facility] Cardiac Diagnostic Lab [address], [address] [place] [address] Transthoracic Echocardiographic Report Patient Name: October : 1975 (49y 9m) Gender: F Study Date: 11/27/2024 03:12:58 PM Ht(Inch): 65 Wt(Lb): 184.97 BSA: 1.96 Gas Welder: RADHA Uribe Location: [facility] Order Provider: ILSA SESAY Heart Rate: [...] Procedure Note Raúl Casillas MD - 11/30/2024 [facility] Cardiac Diagnostic Lab 10[address] [facility], [address] [place] [address] Transthoracic Echocardiographic Report Patient Name: October : 1975 (49y 9m) Gender: F Study Date: 11/27/2024 03:12:58 PM Ht(Inch): 65 Wt(Lb): 184.97 BSA: 1.96 Gas Welder: RADHA Uribe Location: [facility] Order Provider:ILSA SESAY Heart Rate: 50 BMI: [...] LA Length 4C 5.34 cm MV Decel Pwqg225.97 msec [ 104.00 - 258.00 ] LA [...] PM CDT Narrative 12/25/2024 10:[address] [facility] Cardiac Diagnostic Lab [address] [place] [address] CARDIAC EVENT MONITOR REPORT Patient Name: October : 1975 (49y 9m) Gender: F Study Date: 11/20/2024 02:15:00 PM Ht(Inch): Wt(Lb): BSA: Tech: Location: I Order Provider: ILSA SESAY BMI: Ref Provider: ILSA SESAY PROCEDURES: Event Report: [employer] ([employer] MOBILE CARDIAC TELEMETRY EVENT MONITOR [[id number]]. Enrollment Period: 11/24/2024 - 12/23/2024. Patient Instructions: Patient picked up device from office and understand directions and use of the equipment. Location: [facility]. INDICATIONS: R55 Syncope and collapse, I10 Essential [...] Procedure Note Guillermo Zheng MD - 12/25/2024 [facility] Cardiac Diagnostic Lab [address] [place] [address] CARDIAC EVENT MONITOR REPORT Patient Name: EMMETT OCTOBER : 1975 (49y 9m) Gender: F Study Date: 11/20/2024 02:15:00 PM Ht(Inch): Wt(Lb): BSA: Tech: Location: [facility] Order Provider: ILSA SESAY BMI: Ref Provider: ILSA SESAY PROCEDURES: Event Report: [facility] MOBILE CARDIAC TELEMETRY EVENT MONITOR [[id number]]. Enrollment Period: 11/24/2024 - 12/23/2024. Patient Instructions: Patient picked up device from office and understanddirections and use of the equipment. Location: [facility]. INDICATIONS: R55 Syncope and collapse, I10 [...] Ilsa Sesay MD CV CARDIAC SERVICES PROCE [facility] Final Result * ECG 12 lead (11/20/2024 1:32 PM CDT) us Ilsa Sesay MD ECG ORDERABLES Edited Re sult - Final from Last 3 Months Insurance [employer] OOS Member Subscriber Plan / Payer (Ef fective 2024-Present) Name:Vida Christine Relation to Subscriber:Self Name:Vida Christine Payer ID:[id number] (NAIC) Type:[employer] Address: [address] [place] [address] [employer] OOS Member Subscriber Plan / Payer (Ef fective 2024-Present) Name:Vida Christine Relation to Subscriber:Self Name:Vida Christine Payer ID:[id number] (NAIC) Type:[employer] Address: [id number] [place] [address] Care Teams Employee Welfare Manager Relationship Specialty Start Date End Date Derrick Cain MD [facility] [place] [address] [address] PCP - General Internal Medicine 11/20/24 Judith Hernandez, generation managerCore Extruder 12/02/24 Reyes Sanchez DO [address] [place] [address] 12/17/24 estrella cardona Secondary Kidney Coordinator 12/02/24
--- OUTSIDE RECORDS SUMMARY | 2024-12-31 03:40 | XMS_ITS ---
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 The patient has three children and plans to get on 10/11/24. The patient denies tobacco, alcohol, or illicit drug abuse. 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) Active confirmed Problem Spondylosis without myelopathy or radiculopathy, lumbar region (M47.816) Active confirmed Lumbosacral spondylosis without myelopathy (12663232) Problem Radiculopathy, cervical region (M54.12) Active confirmed Cervical radiculopathy (57416286) Problem Pain in left shoulder (M25.512) Active confirmed Shoulder joint pain (967781051) Problem senior care (current) use of opiate analgesic (Z79.891) Active confirmed High risk drug monitoring status (078028046) Problem Fear of injections and transfusions (F40.231) Active confirmed Fear of medical treatment (624567500) VITAL SIGNS Blood pressure systolic 161 mm Hg 10/09/19 25 Blood pressure diastolic 104 mm Hg 025 Heart Rate 63 /min 10/08/2024 Respiratory Rate 16 /min 10/08/2024 Height 5 ft 5 in in 10/08/2024 Weight 199 lbs 10/08/2024 BMI 33.11 kg/m2 10/08/2024 Encounters Encounter Location Date Provider Diagnosis [facility] [address] [place] [address] 10/08/2024 Jamey Vyas Lumbar radiculopathy M54.16 ; Other intervertebral disc degeneration, lumbar region with discogenic back pain and lower extremity pain M51.362 ; Spondylosis without myelopathy or radiculopathy, lumbar region M47.816 ; Radiculopathy, cervical region M54.12 ; Pain in left shoulder M25.512 ; 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 equipment operator intermodal yard (current) use of opiate analge sic The [...] patient's typical axial low back pain. Cristobal's, [place]'s and [place]'s are positive bilaterally. There is [...]
--- OUTSIDE RECORDS SUMMARY | 2024-12-31 03:40 | XMS_ITS ---
Author Organization [facility] Address [address] [place] [address] Care Team Providers Care Supervisor Front Name Role Phone Derrick Cain MD Primary Care Provider [phone] Judith Hernandez RN Unavailable Unavailabl e Reyes Sanchez DO Unavailable [phone] Transplant Episode Kidney Candidate [facility] ([place], [place]) - [facility] Referred on 11/03/2024 Marked as Active on 12/10/2024 Reason: Finance Approved Ready for Evaluation Kidney CoordinatorJudith Hernandez RN Phone: N/A Fax: N/A Email: N/A Scores Score Value Updated Exceptions/Reas ons CPRA Not available EPTS (Calc) 16 12/31/2024 Care Team Name Role Phone Fax Email Judith Hernandez RN Kidney Coordinator N/A N/A N/A Paula Rogers Primary Automation Sales Manager N/A N/A N/A Rachel Blount Global Commodity Manager [phone] N/A N/A Reyes Sanchez DO Referring Physician [phone] N/A Events Pre-Transplant Referred: 11/03/2024
--- OUTSIDE RECORDS SUMMARY | 2024-12-31 03:40 | XMS_ITS | Patient Health Record ---
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 The patient has three children and plans to get on 10/11/24. The patient denies tobacco, alcohol, or illicit drug abuse. PROBLEMS Problem Type ICD Code Onset Dates Problem Status W/U Status Risk SNOMED Code Notes Problem Fear of injections and transfusions (F40.231) Active confirmed Fear of medical treatment (374356188) Problem Pain in left shoulder (M25.512) Active confirmed Shoulder joint pain (552835837) Problem Spondylosis without myelopathy or radiculopathy, lumbar region (M47.816) Active confirmed Lumbosacral spondylosis without myelopathy (43556150) Problem Radiculopathy, cervical region (M54.12) Active confirmed Cervical radiculopathy (77804484) Problem long term (current) use of opiate analgesic (Z79.891) Active confirmed High risk drug monitoring status (512726579) Problem Lumbar radiculopathy (M54.16) Active confirmed Lumbar radiculopathy (521959126) Problem Other intervertebral disc degeneration, lumbar region [...] Location Date Provider Diagnosis [facility] [address] [place] [address] 10/08/2024 Jamey Studniaick Lumbar radiculopathy M54.16 ; Other intervertebral disc degeneration, lumbar region with discogenic back pain and lower extremity pain M51.362 ; Spondylosis without myelopathy or radiculopathy, lumbar region M47.816 ; Radiculopathy, cervical region M54.12 ; Pain in left shoulder M25.512 ; shelter (current) use of opiate analgesic Z79.891 and [...] in left shoulder (ICD-10 - M25.512) 10/08/2024 long term (current) use of opiate analgesic (ICD-10 - [...] Insured Coverage Start Date Coverage End Date [facility] [address] [place] [address] [id number] October Self - patient is the insured MEDICAL (GENERAL) HISTORY Medical History History ICD Code Insomnia Migraine Hypertension Polycystic kidney disease Depression Anxiety Surgical History Surgery Date(Month/Year) C5-7 ACDF 2016
--- OUTSIDE RECORDS SUMMARY | 2024-12-31 03:40 | XMS_ITS | Encounter Summary ---
Author Organization [facility] Address [address] [place] [address] Phone Care Team Providers Care Fee Clerk Name Role Phone Derrick Cain MD Primary Care Provider [phone] Yearout, Judith Hollins RN Unavailable Unavailabl e Daniel Reyes Jenny DO Unavailable [phone] Encounter Details Date Type Department Care Team (Latest Contact Info) Description 11/20/2024 Results Follow-Up [facility] Cardiology [address] [facility] [address] [place] [address] Suhail Sesay MD [address] [facility] [address] [place] [address] ECG 12 lead, Transthoracic Echo [...] on filedocumented in this encounter Care Teams Fee Clerk Relationship Specialty Start Date End Date Derrick Cain MD [address] [place] [address] PCP - General Internal Medicine 11/20/24 Yearout, Judith Hollins, charcoal kiln burnerDifferential Specialist 12/02/24 Reyes Sanchez DO [address] [id number] 12/17/24 estrella cardona Secondary Kidney Coordinator 12/02/24 documented as of this encounter
--- OUTSIDE RECORDS SUMMARY | 2024-12-31 03:40 | XMS_ITS | Clinical Summary ---
Author Organization [facility] Address [address] [place] [address] [place] [address] Phone Care Team Providers Care Bottom Ironer Name Role Phone Derrick Cain MD Primary Care Provider [phone] Allergies Active Allergy Reactions Criticality Noted Date [...] naloxone HCl (Narcan) 4 MG/0.1ML Liquid 1 [place] by Nasal route as needed for Opioid [...] Type Department Care Team Description 12/21/[facility] [address] [place] [address] Derrick Cain MD Medication Refill 12/15/2024 [facility]phone [facility] [address] [place] [place] [address] Derrick Cain MD Medication Refill 12/07/2024 Refill [facility] Internal Medicine [facility] [address] [place] [place] [address] Derrick Cain MD 12/04/2024 Refill [facility] Internal [facility] [address] [place] [address] Derrick Cain MD Medication Refill 11/30/2024 Results Follow-Up [facility] Adult Pediatric Inpatient Virtual [address] [place] [address] Jigar Castellanos MD Pathology Surgical 11/27/2024 7:20 AM CDT Anesthesia Event [facility] Gi Lab Periop [address] [place] [address] Nitesh Bland APRN, HERIBERTO 11/27/2024 7:00 AM CDT - 11/27/2024 7:30 AM CDT Surgery [facility] Gi Lab Periop [address] [place] [address] Jigar Castellanos MD COLONOSCOPY- COLON POLYPECTOMY AT 15 CM (COLD SNARE) 11/27/2024 6:40 AM CDT Ancillary Procedure [facility] Gi Lab Main [address] [place] [address] Jigar Castellanos MD 11/27/2024 6:31 AM CDT - 11/27/2024 8:29 AM CDT Hospital Encounter [facility] GI Lab Preop/Pacu II [address] [place] [address] Jigar Castellanos MD Adenomatous rectal polyp Discharge Disposition: Discharged to home or Selfcare 11/27/2024 Travel 11/20/2024 Results Follow-Up [facility] Internal [facility] [address] [facility] [place] [address] Jessy Lipscomb, PAC CULTURE, URINE 11/16/2024 [facility] [address] [place] [address] Derrick Cain MD Medication Refill 11/12/2024 Travel 11/10/2024 Telephone [facility] [place] [address] Jigar Castellanos MD 11/10/2024 [facility] [address] [place] [place] [address] Derrick Cain MD Medication Refill 11/09/2024 Telephone [facility] [place] [address] Sylvie Luis APRN, BRICK LAYER Procedure; Appointment 10/29/2024 [facility] [address] [place] [address] Derrick Cain MD Medication Refill 10/22/2024 [facility] [address] [place] [address] Derrick Cain MD Medication Refill 10/19/2024 3:30 PM CDT Office Visit [facility] [address] [place], [place] [address] Derrick Cain MD Chronic bilateral low back pain with right-sided sciatica (Primary Dx); Primary insomnia; Screening for colorectal cancer; Chronic left shoulder pain; Polycystic kidney disease, autosomal dominant Discharge Disposition: Discharged to home or Selfcare 10/19/2024 Travel 10/15/2024 [facility] [address] [place] [address] Derrick Cain MD Medication Refill 10/08/2024 Refill [facility] [address] [place] [address] [place] [address] Derrick Cain MD Medication Refill 10/01/2024 [facility] [place] [address] Derrick Cain MD Medication Refill 10/01/2024 Results Follow-Up [facility] Internal Medicine [facility] [address] [place], [place] [address] Derrick Cain MD XR SHOULDER COMPLETE LEFT [...] on file Legal Sex Female 11:09 AM CUPOLA PATCHER Gender Identity Not on file Sexual Orientation [...] [facility] [address] [place] [address] Derrick Cain MD [address] [place] [address] [place] [address] Health Maintenance Due Date Last Done Comments [...] (Adult) (1 - 1-dose 75+ series) 2049 Human Papillomavirus (HPV) Immunization Aged Out No longer eligible based on patient's age to complete this topic Meningococcal Immunization (ACWY) Aged Out No longer eligible based on patient's age to complete this topic Rotavirus Immunization Aged Out No lo nger eligible based on patient's age to complete this topic Procedures Procedure Name Priority Date/Time Associated Diagnosis Comments PROTIME (PT) (PROTHROMBIN TIME) 12/26/2024 12:00 AM CDT APTT (PTT) 12/26/2024 12:00 AM CDT MRI UPPER EXTREMITY GENERIC 12/04/2024 12:00 AM [...] Hx CKD stage 4 - Dx screen [place] COLONOSCOPY FLX DX W/COLLJ SPEC WHEN PFRMD [...] sciatica PAIN CONSULT 10/07/2024 12:00 AM CDT ERIKA SCREENING SONALI W IMPL DIGITAL W CAD W ANAIS Routine 09/09/2024 3:33 PM CUPOLA PATCHER Breast cancer screening by mammogram from Last 3 Months or Most Recently Relevant to Health Maintenance Results * APTT (PTT) (12/26/2024 12:00 AM CDT) 12/26/2024 us Provider Scan HEMATOLOGY ORDERABLES Final Resu lt SCAN * PROTIME (PT) (PROTHROMBIN TIME) (12/26/2024 12:00 AM CDT) INR 1.1 SCAN 12/26/2024 us Provider Scan HEMATOLOGY ORDERABLES Final Resu lt SCAN * MRI UPPER EXTREMITY GENERIC (12/04/2024 12:00 AM CDT) 12/04/2024 us Provider Scan IMG MR ORDERABLES Final Result SCAN * Pathology Surgical (11/27/2024 7:39 AM CDT) Case Report Surgical Pathology Report Case: [id number] Authorizing Provider: Jigar Castellanos MD Collected: 11/27/2024 07:39 AM Ordering Location: [facility] Received: 11/27/2024 08:52 AM [facility] Gi Lab Main Pathologist: Yohana Dacosta MD PhD Specimen: Colon, COLON POLYP AT 15 CM 11/30/2024 11:22 AM CDT [facility] FINAL DIAGNOSIS Colon polyp at 15 cm, polypectomy: - Tubular adenoma 11/30/2024 11:22 AM CDT [facility] at 1122 CDT Pre-Operative Diagnosis SCREENING COLON CANCER 11/30/2024 11:22 AM CDT [facility] Gross Description A. COLON POLYP AT [...] 7 minutes. KS/sb 11/30/2024 11:22 AM CDT [facility] Microscopic Description Microscopic examination was performed which supports the final diagnosis. All control tissues stained appropriately. 11/30/2024 11:22 AM CDT [facility] Tissue COLON STRUCTURE / Unknown 11/27/2024 7:39 AM CDT 11/27/2024 8:52 AM CDT us Jigar Castellanos MD PATHOLOGY/CYTOLOGY ORDERAB LES Final Result Performing Organization Address [facility] de Phone Number [facility] [place] [address] * GI IMAGING - COLONOSCOPY (11/27/2024 6:37 AM CDT) us Jigar Castellanos MD IMG DIAGNOSTIC ORDERABLES Final Result * XR - CHEST (11/18/2024 12:00 AM CDT) 11/18/2024 us Provider Scan IMG DIAGNOSTIC ORDERABLES Final Result Performing Organization Address [facility] de Phone Number SCAN * CULTURE - MISCELLANEOUS (11/18/2024 12:00 AM CDT) 11/18/2024 us Provider Scan MICROBIOLOGY - GENERAL ORDERABLE S Final Result Performing Organization Address [facility] de Phone Number SCAN * URINALYSIS (UA) RANDOM (11/18/2024 12:00 AM CDT) 11/18/2024 us Provider Scan URINE ORDERABLES Final Result Performing Organization Address [facility] de Phone Number SCAN * CULTURE, URINE (11/18/2024 12:00 AM CDT) 11/18/2024 us Derrick Cain MD [facility]BIOLOGY - [facility] Final Result Performing Organization Address [facility] de Phone Number SCAN * CMP (COMPREHENSIVE METABOLIC PANEL) (11/18/2024 12:00 AM CDT) 11/18/2024 us Provider Scan CHEMISTRY ORDERABLES Final Resul t Performing Organization Address [facility] de Phone Number SCAN * COMPLETE BLOOD COUNT (CBC) WITH DIFF (11/18/2024 12:00 AM CDT) 11/18/2024 us Provider Scan HEMATOLOGY ORDERABLES Final Resu lt Performing Organization Address [facility] de Phone Number SCAN * EXTERNAL PAIN REFERRAL (10/08/2024 12:00 AM CDT) 10/08/2024 Derrick Cain MD OUTPT REFERRALS EXT/INT Fin al Result Performing Organization Address [facility] de Phone Number SCAN * PAIN CONSULT (10/07/2024 12:00 AM CDT) 10/07/2024 Derrick Cain MD GENERIC SCAN ORDERS CONSULT Final Result Performing Organization Address [facility] de Phone Number SCAN * ERIKA SCREENING SONALI W IMPL DIGITAL W CAD W ANAIS (09/09/2024 3:33 PM CUPOLA PATCHER) Anatomical Region Laterality Modality breast Bilateral Mammography 09/09/2024 3:20 PM CUPOLA PATCHER Narrative 09/24/2024 9:36 AM CUPOLA PATCHER - ERIKA SCREENING SONALI W IMPL DIGITAL [...] exam. Electronically signed by: Kaleb holman/spencer:09/23/2024 22:44:46 Wire Stitcher Operator(s): RT Franklin(R)(M), [facility] letter sent: Normal Exam Reading location: [...] exam. Electronically signed by: Kaleb holman/spencer:09/23/2024 22:44:46 Wire Stitcher Operator(s): RT Franklin(R)(M), [facility] letter sent: Normal Exam Reading location: [place] Mammogram BI-RADS: Category 1: Negative Derrick Cain MD IMG MAMMO ORDERABLES Final Result from Last 3 Months or Most Recently Relevant to Health Maintenance Insurance [facility] Care Teams Bottom Ironer Relationship Specialty Start Date End Date Derrick Cain MD [address] [place] [address] PCP - General Internal Medicine 08/18/24
--- OUTSIDE RECORDS SUMMARY | 2024-12-31 03:40 | XMS_ITS | Encounter Summary ---
Author Organization [facility] Address [address] [address] Phone Care Team Providers Care Chief Contract Officer Name Role Phone Derrick Cain MD Primary Care Provider [phone] Encounter Details Date Type Department Care Team (Late Contact Info) Description 11/30/2024 Results Follow-Up [facility] Adult Pediatric Inpatient Virtual 1 [place] [phone] Jigar Castellanos MD [address] [address] Pathology Surgical Social History Tobacco Use Types [...] on file Legal Sex Female 11:09 AM SAFE TECHNICIAN Gender Identity Not on file Sexual Orientation Not on file documented as of this encounter Plan of Treatment Upcoming Encounters Date Type Department Care Team (Late st Contact Info) Description 01/13/2025 8:00 AM CDT [facility] [place] [address] [place] [place] [address] Derrick Cain MD [address] [place] [address] [place] [address] documented as of this encounter Visit Diagnoses Not on filedocumented in this encounter Additional Health Concerns Assessment Noted Time PHQ-9 Depression Total Score: 0 08/18/19 3:32 PM SAFE TECHNICIAN documented as of this encounter Care Teams Chief Contract Officer Relationship Specialty Start Date End Date Derrick Cain MD [address] [place] [address] PCP - General Internal Medicine 08/18/24 documented as of this encounter
--- NOTE | 2024-12-31 07:21 | WPDHPUPDATE1 ---
History and Physical Update Update Date/Time: 12/31/24 07:21 History and Physical has been reviewed, including an updated exam of the patient. There are NO changes in the patient's condition. Risks, benefits, and alternatives have been discussed and questions answered. Patient agrees to proceed with procedure.
--- NOTE | 2024-12-31 10:54 | SUR.PREOP ---
I had conversation with patient about reported tylenol allergy and she states will only take tylenol if in percocet
[2024-12-31] MEDS: ACETAMINOPHEN 500 MG TABLET 1000 MG PO (11:15)
--- NOTE | 2024-12-31 11:20 | WPDANESEPPF ---
Anes - Initial Pre Proc Eval Procedure: Operation Date: 12/31/24 12:30 Proposed Procedures p Left Shoulder Arthroscopic Capsular Release, Proceed as Indicated - Ubaldo Menezes MD Date/Time: 12/31/24 11:20 Surgeon: Ubaldo Menezes MD Pre Op Diagnosis: Left shoulder capsular adhesive Patient Data Age: 49 Gender: F Height: 1.65 m Weight: 85.1 kg Last Vital Signs Temp 37.0 C 12/31/24 11:14 Pulse 69 12/31/24 11:14 BP 114/72 12/31/24 11:14 Pulse Ox 100 12/31/24 11:14 O2 Del Method Room Air 12/31/24 11:14 Allergies Allergy/AdvReac Type Severity Reaction Status Date / Time hydrocodone (From [place]) Allergy Itching Verified 12/31/24 11:12 NSAIDS (Non-Steroidal AdvReac Severe Other Verified 12/31/24 11:12 Anti-Inflamma Home Medications ?Medication ?Instructions ?Recorded ?Confirmed ?Type meclizine 25 mg tablet 25 mg PO TID PRN dizziness #20 tabs 11/18/24 12/24/24 Rx ondansetron 4 mg disintegrating 4 mg PO Q6H PRN nausea and 11/18/24 12/24/24 Rx tablet vomiting #10 tabs amlodipine 2.5 mg tablet 2.5 mg PO DAILY 12/09/24 12/24/24 History telmisartan 20 mg tablet 20 mg PO DAILY 12/09/24 12/24/24 History gabapentin 300 mg capsule 300 mg PO BID 12/24/24 12/24/24 History oxycodone-acetaminophen 10 mg-325 1 tablet PO BID 12/24/24 12/31/24 History mg tablet temazepam 15 mg capsule 15 mg PO HS 12/24/24 12/24/24 History tizanidine 4 mg tablet 4 mg PO Q8H 12/24/24 12/24/24 History oxycodone-acetaminophen 5 mg-325 1 - 2 tablet PO Q4-6H PRN pain #30 12/31/24 Rx mg tablet tabs Patient hx anesthesia problems: none Family hx anesthesia problems: none Results Review: All pre-operative results and documents have been reviewed as part of the pre-operative evaluation. [facility] Past Medical History Medical History Hypertension Chronic kidney disease, stage 4 (severe) Polycystic kidney disease Social History Social History Smoking status: Never smoker Do You Feel Safe in your Home?: Yes Lack of Transportation: No Lack of Food: Never True Current Housing: I Have Housing Concerned About Future Housing: No Difficulty Paying Gas/Electric Bills: No Difficulty Paying for Meds: No Currently Unemployed: No Education: High School Diploma/GED Difficulty w/ Childcare or Family Care: No Living arrangements: with family Spiritual care concerns: No Anes - Eval Final PreProcedure Day of Procedure 12/31/24 11:20 Patient weight: obese Heart: regular rate and rhythm Lungs: clear to auscultation Airway: Mallampati scale class II Neurological: alert and oriented Last oral intake: >/= 8 hours ASA classification: III Emergent: no Anesthetic plan: proceed Anesthesia type and monitoring: general ETT and standard monitoring Results Review: All pre-operative results and documents have been reviewed as part of the pre-operative evaluation. Informed Consent: The patient's anesthetic plan and its attendant risks and benefits were discussed with the patient/family/POA. Questions were solicited and answers provided to the satisfaction of the patient/family/POA.
[2024-12-31] MEDS: LACTATED RINGERS 1,000 ML 30 ML IV CONT (11:57)
[2024-12-31] MEDS: ceFAZolin 2 GM/D5W 50 ML 2 GM/50 ML BAG IVPB (12:03)
[2024-12-31] MEDS: BUPIVACAINE/EPINEPHRINE 0.5% 50 ML VIAL 30 ML INFILTRATE (12:47)
[2024-12-31] MEDS: EPINEPHrine HCL INJ 1 MG/ML AMPUL 2 MG IRRIGATION (12:49)
[2024-12-31] MEDS: fentaNYL CITRATE INJ (*CRX) 100 MCG/2 ML VIAL 25 MCG IV PUSH ×8 (14:01→15:23)
[2024-12-31] MEDS: HYDROmorphone HCL INJ (*CRX) 1 MG/ML SYR 0.5 MG IV PUSH ×6 (14:22→14:56)
--- NOTE | 2024-12-31 14:56 | SUR.PHASEI ---
RN called into OR and told product marketing specialist to have Dr. Menezes to stop in PACU when finished in surgery in regards to this patient.
[2024-12-31] MEDS: oxyCODONE HCL (*CRX) 5 MG TAB IR PO (16:01)
[2024-12-31] MEDS: oxyCODONE/ACETAMINOPHEN (*CRX) 5-325 MG TABLET 1 TABLET PO (16:02)
--- NOTE | 2024-12-31 16:42 | P.OP_ITS ---
Procedure Note - Detailed Date of Procedure 12/31/24 Pre-op Diagnosis Left shoulder adhesive capsulitis. Post-op Diagnosis Other (1. Left shoulder adhesive capsulitis 2. Degenerative SLAP tear 3. Low-grade partial-thickness articular rotator cuff tear) Procedure Performed Left shoulder arthroscopic 1. Capsule release 2. Extensive debridement with biceps tenotomy and subacromial bursectomy Surgeon Ubaldo Menezes MD Anesthesia General Findings Severe capsulitis with thickening of the capsule. Degenerative superior labral tear treated with biceps tenotomy. Mild labral degenerative changes diffusely with light debridement. Glenohumeral cartilage with minimal glenoid wear. Low- grade less than 20% articular supraspinatus rotator cuff tear, treated with debridement. Thickening and hypertrophic changes at the subacromial bursa with mild fraying of the bursal rotator cuff. No evidence of subacromial impingement. Findings consistent with severe adhesive capsulitis and SLAP tear. Description of Procedure Preoperative antibiotics were given. The patient was brought to the operating room. Careful positioning in the beach chair was accomplished. The head neck were carefully positioned. A small bump was placed under the shoulder. The shoulder was prepped and draped in the usual sterile fashion. Examination under anesthesia performed. Elevation 50? pre and 150? post. Internal rotation in abduction 15? preop and 100? postop. External rotation 20? preop and 70? postop. Abduction 40? preop and 80? postop. Standard posterior and anterior arthroscopic portals were established. The shoulder was very tight initially. It required an initial manipulative release of the anterior capsule. The rotator interval was severely hypertrophic and thickened. This tissue was excised. The subscapularis was healthy. The superior labrum was severely degenerative with an unstable attachment of the biceps. This was treated with debridement. There were mild degenerative changes in the remaining labrum and glenoid cartilage treated with gentle debridement. The posterior and inferior capsule releases were completed with the radiofrequency hook probe. The supraspinatus showed less than 20% partial-thickness fraying on the undersurface . This was treated with gentle debridement. The remaining tendon appeared healthy. Attention was turned to the subacromial space. Bursa appeared quite pathologically thickened and scar-like. A complete bursectomy was performed through an accessory lateral portal. The bursal side of the rotator cuff had very mild fraying on the surface. No significant tearing. No evidence of impingement on the undersurface of the acromion. The arthroscopic instruments were removed. The wounds were closed with interrupted 3-0 Monocryl suture followed by Steri-Strips. A sterile dressing was applied with a sling. The patient was extubated and brought to the recovery room in stable condition. There were no complications. 0.5% Marcaine with epinephrine was injected at the portals for perioperative pain control. Estimated Blood Loss 10 Drains No Packing No Pathology None sent Complications No immediate complications Condition Stable Disposition PACU [facility] Billing Surgery - Charge Forward: Surgery Billing
== END 2024-12-31 16:40 | disposition home or self-care (01) ==
PROVIDERS: PCP Internal Medicine; Visit Provider Orthopaedic Surgery
PROC: (CPT 29805; principal; 2024-12-31 12:30)
DX: M75.02 Adhesive capsulitis of left shoulder (principal); M75.82 Other shoulder lesions, left shoulder; M75.112 Incomplete rotator cuff tear or rupture of left shoulder, not specified as traumatic; I12.9 Hypertensive chronic kidney disease with stage 1 through stage 4 chronic kidney disease, or unspecified chronic kidney disease; N18.4 Chronic kidney disease, stage 4 (severe); E66.9 Obesity, unspecified; Z68.31 Body mass index [BMI] 31.0-31.9, adult
CPT/HCPCS: 29823; A4565; A9270; J0171; J0330; J0690; J1100; J1171; J2003; J2250; J2405; J2704; J3010; J7120

== ENCOUNTER 2025-01-22 11:21 | Emergency (ER) | payer BC, SELFPAY ==
[2025-01-22] VITALS (8 sets, daily range): BP systolic 112–136; BP diastolic 64–87; PULSE 52–65; RESP 14–17; TEMP 36.6; O2SAT 96–100
--- NOTE | ~2025-01-22 | XR_ITS ---
CHEST RADIOGRAPH CLINICAL HISTORY: chest pain . COMPARISON: None available TECHNIQUE: Single portable view of the chest. FINDINGS The cardiomediastinal silhouette is unremarkable. The lungs are clear. IMPRESSION: No focal infiltrate or effusion. Reviewed, dictated and finalized at location A.
--- NOTE | ~2025-01-22 | NM_ITS ---
EXAMINATION: NM lung vent and perfusion DATE: 01/22/2025 15:02 INDICATION: Left-sided neck and chest pain TECHNIQUE: 15.1 mCi xenon-133 by inhalation and 5.3 mCi Tc-99m MAA by intravenous route. Scintigraph ic images of the chest were obtained. COMPARISON: None. Reference is made to a plain film evaluation of the chest, performed approximately 90 minutes earlier. FINDINGS: There is homogeneous radiotracer activity throughout the lungs on the single breath ventilation seque nce. There is relatively homogeneous perfusion throughout the lungs with a single segmental mismatch within the superior posterior segment of the left lower lobe. No additional discrete ventilation an d perfusion mismatch is identified. IMPRESSION: 1. Intermediate probability for pulmonary embolism. Reviewed, dictated and finalized at location A.
--- OUTSIDE RECORDS SUMMARY | 2025-01-22 11:23 | XMS_ITS | Encounter Summary ---
Author Organization [facility] Address [address] 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 ASSISTANT Gender Identity Not on file Sexual Orientation Not on file documented as of this encounter Plan of Treatment Upcoming Encounters Date Type Department Care Team (Late st Contact Info) Description 03/23/2025 8:40 AM CDT Office Visit [facility] - Internal Medicine - [place] [address] [place] [address] Derrick Cain MD [address] [address] documented as of this encounter Visit Diagnoses Not on filedocumented in this encounter Additional Health Concerns Assessment Noted Time PHQ-9 Depression Total Score: 0 08/18/19 3:32 PM SALES OPERATIONS ASSISTANT documented as of this encounter Care Teams Fabrication Mig Welder Relationship Specialty Start Date End Date Derrick Cain MD [address] [place] [address] PCP - General Internal Medicine 08/18/24 documented as of this encounter
--- OUTSIDE RECORDS SUMMARY | 2025-01-22 11:23 | XMS_ITS | Encounter Summary ---
Author Organization [facility] Address [address] [place] [address] Phone Care Team Providers Care Continuum Of Care Manager Name Role Phone Derrick Cain MD Primary Care Provider [phone] Judith Hernandez RN Unavailable Unavailabl e Reyes Sanchez DO Unavailable [phone] Ubaldo Menezes MD Unavailable [phone] Encounter Details Date Type Department Care Team (Latest Contact Info) Description 11/20/2024 Results Follow-Up [facility] Cardiology [address] [facility] Medical Office Building [address] [place] [address] Suhail Sesay MD [address] [place], [place] [id number] ECG 12 lead, Transthoracic Echo (TTE) Complete [...] on filedocumented in this encounter Care Teams Continuum Of Care Manager Relationship Specialty Start Date End Date Derrick Cain MD [address] [place] [address] PCP - General Internal Medicine 11/20/24 Judith Hernandez, inside technical sales representativeSupervisor Residential 12/02/24 Reyes Sanchez DO [address] [place] [address] 12/17/24 Ubaldo Menezes MD [address] [facility] [address] [place] [address] Referring Physician Orthopedic Surgery 01/08/25 estrella cardona Secondary Kidney Coordinator 12/02/24 documented as of this encounter
--- OUTSIDE RECORDS SUMMARY | 2025-01-22 11:23 | XMS_ITS ---
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 The patient has three children and plans to get on 10/11/24. The patient denies tobacco, alcohol, or illicit drug abuse. 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) Active confirmed Problem Spondylosis without myelopathy or radiculopathy, lumbar region (M47.816) Active confirmed Lumbosacral spondylosis without myelopathy (57649672) Problem Radiculopathy, cervical region (M54.12) Active confirmed Cervical radiculopathy (44404791) Problem Pain in left shoulder (M25.512) Active confirmed Shoulder joint pain (673587044) Problem superintendent terminal (current) use of opiate analgesic (Z79.891) Active confirmed High risk drug monitoring status (528919643) Problem Fear of injections and transfusions (F40.231) Active confirmed Fear of medical treatment (201871844) VITAL SIGNS Blood pressure systolic 161 mm Hg 10/09/19 25 Blood pressure diastolic 104 mm Hg 025 Heart Rate 63 /min 10/08/2024 Respiratory Rate 16 /min 10/08/2024 Height 5 ft 5 in in 10/08/2024 Weight 199 lbs 10/08/2024 BMI 33.11 kg/m2 10/08/2024 Encounters Encounter Location Date Provider Diagnosis [facility] [address] [place] [id number] 10/08/2024 Jamey Vyas Lumbar radiculopathy M54.16 ; Other intervertebral disc degeneration, lumbar region with discogenic back pain and lower extremity pain M51.362 ; Spondylosis without myelopathy or radiculopathy, lumbar region M47.816 ; Radiculopathy, cervical region M54.12 ; Pain in left shoulder M25.512 ; superintendent terminal (current) use of opiate analgesic Z79.891 and [...] in left shoulder (ICD-10 - M25.512) 10/08/2024 superintendent terminal (current) use of opiate analgesic (ICD-10 - [...] giv en an order for physical therapy. superintendent terminal (current) use of opiate analge sic The [...] patient's typical axial low back pain. Cristobal's, [place]'s and [place]'s are positive bilaterally. There is [...]
--- OUTSIDE RECORDS SUMMARY | 2025-01-22 11:23 | XMS_ITS | Encounter Summary ---
Author Organization [facility] Address [address] [place] [address] Phone Care Team Providers Care Equal Opportunity Specialist Name Role Phone Derrick Cain MD Primary Care Provider [phone] Reason for Visit * Reason Onset Date Comments Medication Refill 01/14/2025 Encounter Details Date Type Department Care Team (Late st Contact Info) Description 01/14/2025 Refill [facility] - Internal Medicine - [place] [address] [place] [address] Derrick Cain MD [address] [facility] [place] [address] Medication Refill Social History Tobacco [...] on file Legal Sex Female 11:09 AM 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 Requested Prescriptions Pending Prescriptions Disp Refills Rizatriptan Benzoate 10 MG Tablet 10 Tablet 0 Sig: Take 1 Tablet by mouth once as needed for Headaches. May repeat in 2 hours in needed Not Delegated - Serotonin Agonists (Oral and Nasal) Protocol Failed - 01/14/2025 12:03 PM Failed - This refill cannot be delegated; check utilization no more than 9 doses per month Passed - Visit with relevant provider in past 24 months or upcoming 90 days Recent Visits Date Type Provider Dept 10/19/24 Office Visit Derrick Cain MD [facility] [place] 08/18/24 Office Visit Derrick Cain MD [facility] [place] Showing recent visits within past 730 days and meeting all other requirements Future Appointments Date Type Provider Dept 03/11/25 Appointment Derrick Cain MD [facility] [place] Showing future appointments within next 90 days and meeting all other requirements Passed - No documented Systolic BP > 200 within past 3 months Passed - Number of active Serotonergic medications less than 3 ondansetron (ZOFRAN-ODT) 4 MG TABLET DISPERSIBLE 10 Tablet 0 Sig: Take 1 Tablet by mouth every 8 hours as needed for Nausea - 1st line. Not Delegated - 5-HT3 Antagonists Protocol Failed - 01/14/2025 12:03 PM Failed - This refill cannot be delegated Passed - Visit with relevant provider in past 12 months or upcoming 90 days Recent Visits Date Type Provider Dept 10/19/24 Office Visit Derrick Cain MD [facility] [place] 08/18/24 Office Visit Derrick Cain MD [facility] [place] Showing recent visits within past 365 days and meeting all other requirements Future Appointments Date Type Provider Dept 03/11/25 Appointment Derrick Cain MD [facility] [place] Showing future appointments within next 90 days and meeting all other requirements temazepam (RESTORIL) 15 MG Capsule 30 Capsule 0 Sig: Take 1 Capsule by mouth nightly as needed for Sleep. There is no refill protocol information for this order oxyCODONE-Acetaminophen (PERCOCET) 10-325 MG Tablet 28 Tablet 0 Sig: Take 1 Tablet by mouth 2 times daily as needed for Moderate or more severe pain or Severe pain. Not Delegated - Opioid Combinations Protocol Failed - 01/14/2025 12:03 PM Failed - This refill cannot be delegated Passed - Visit with relevant provider in past 12 months or upcoming 90 days Recent Visits Date Type Provider Dept 10/19/24 Office Visit Derrick Cain MD [facility] 08/18/24 Office Visit Derrick Cain MD [facility] [place] Showing recent visits within past 365 days and meeting all other requirements Future Appointments Date Type Provider Dept 03/11/25 Appointment Derrick Cain MD [facility] [place] Showing future appointments within next 90 days and meeting all other requirements * Telephone Encounter - Rosa Srivastava - 01/14/2025 11:52 AM CDT Med rf Medication - Temazepam Oxycodone Ondansetron Rizatriptan Phone - [phone] Pharmacy - [facility] documented in this encounter Plan of Treatment Upcoming Encounters Date Type Department Care Team (Late st Contact Info) Description 03/23/2025 8:40 AM CDT Office Visit [facility] - Internal Medicine - [place] [address] [place] [id number] Derrick Cain MD [address] [place] [address] documented as of this encounter Visit Diagnoses Diagnosis Primary insomnia Persistent disorder of initiating or maintaining sleep Chronic neck pain Cervicalgia Chronic bilateral low back pain with right-sided sciatica documented in this encounter Additional Health Concerns Assessment Noted Time PHQ-9 Depression Total Score: 0 08/18/19 25 3:32 PM PERSONAL INJURY PARALEGAL documented as of this encounter Care Teams Equal Opportunity Specialist Relationship Specialty Start Date End Date Derrick Cain MD [address] [address] PCP - General Internal Medicine 08/18/24 documented as of this encounter
--- OUTSIDE RECORDS SUMMARY | 2025-01-22 11:23 | XMS_ITS | Clinical Summary ---
Author Organization [facility] Address [address] [facility] [address] [place] [address] Phone Care Team Providers Care Courtesy Van Driver Name Role Phone Mcihelet Centeno MD Primary Care Provider [phone] Allergies Active Allergy Reactions Criticality Noted Date [...] Vaccine (Season Ended) 2025 04/21/20, 04/21/2022 [place] [address] [facility] Care Teams Courtesy Van Driver Relationship Specialty Start Date End Date Michelet Centeno MD [address] [place] [address] [place] [address] PCP - General Family Medicine 11/12/23
--- OUTSIDE RECORDS SUMMARY | 2025-01-22 11:23 | XMS_ITS | Referral Summary ---
Author Organization [facility] Address 1 [place] [address] Care Team Providers Care Client Administrator Name Role Phone Derrick Cain MD Primary Care Provider [phone] Judith Hernandez RN Unavailable Unavailabl e Daniel Reyes Jenny DO Unavailable [phone] Ubaldo Menezes MD Unavailable [phone] Encounters Date Type Department Care Team Description 01/14/2025 Documentation [facility] [address] [facility] [address] [phone] [place] [address] Paula Rogers 01/08/2025 Documentation [facility] [address] [facility] [address] [phone] [place] [address] Paula Rogers Evaluation Scheduling 01/08/2025 Telephone [facility] [address] [facility] [address] [phone] [place] [address] Paula Rogers 01/08/2025 Telephone [facility] [address] [facility] [address] [phone] [place] [address] Estrella Sams RN 12/28/2024 Telephone [facility] Cardiology [address] [place] [address] Medical Office Building [address] [place] [address] Ilsa Sesay MD Heart monitor results; Scheduling Testing/Treatment (Stress Test scheduling) 12/17/2024 Documentation [facility]ney [address] [facility] [address] Mailstop [phone] [place] [address] Paula Rogers 12/11/2024 Documentation [facility] [address] [facility] [address] Mailstop [phone] [place] [address] Paula Rogers 12/02/2024 Telephone [facility] [address] [facility] [address] Mailstop [phone] [place] [address] Paula Rogers Referral - Kidney Txp 12/01/2024 Telephone [facility] [address] [facility] [address] Mailstop [phone] [place] [address] Elizabeth Carolina Referral - Kidney Txp 11/27/2024 3:00 PM CDT Ancillary Procedure [facility] [address] [place] [address] [address] [facility] [place] [address] Syncope and collapse; Essential hypertension; Sinus bradycardia; Dizziness 11/25/2024 Documentation [facility] [address] [facility] [address] Mailstop [phone] [place] [address] Paula Rogers 11/20/2024 2:15 PM CDT Ancillary Procedure [facility] [address] [place] [address] [address] [facility] [place] [address] Syncope and collapse; Essential hypertension; Sinus bradycardia; Dizziness 11/20/2024 Results Follow-Up [facility] Cardiology [address] [place] [address] [address] Ilsa Sesay MD ECG 12 lead, Transthoracic Echo (TTE) Complete W Doppler/CF, [facility]CT Mobile Cardiac Telemetry Event Monitor 11/20/2024 1:30 PM CDT Office Visit [facility] Cardiology [address] [place] [address] [address] Ilsa Sesay MD Syncope and collapse (Primary Dx); Essential hypertension; Sinus bradycardia; Dizziness 11/19/2024 Telephone [facility] Cardiology [address] [facility] 8th [place] [address] Yomaira French 11/12/2024 Telephone [facility]ney [address] [facility] [address] Mailstop [phone] [place] [address] Fang Sow Referral - Kidney Txp 11/03/2024 Documentation [facility] [address] [facility] [address] Mailstop [phone] [place] [address] Elizabeth Carolina 11/03/2024 Telephone [facility] [address] [facility] [address] Mail[address] [phone] [place] [address] OrElizabeth castillo Referral - Kidney Txp from [...] Active Active Problems No known active problems Immunizations Immunization Administration Dates Next Due Influenza, Unspecified 04/21/2023,04/21/2022 Social History Tobacco Use Types Packs/Day Years [...] PM CDT Narrative 11/30/2024 3:47 AM CDT [facility] [address] [place] [address] Transthoracic Echocardiographic Report Patient Name: October : 1975 (49y 9m) Gender: F Study Date: 11/27/2024 03:12:58 PM Ht(Inch): 65 Wt(Lb): 184.97 BSA: 1.96 Model And Pattern Supervisor: RADHA Uribe Location: [facility] Order Provider: ILSA SESAY Heart Rate: [...] Procedure Note Raúl Casillas MD - 11/30/2024 [facility] [address] [place] [address] Transthoracic Echocardiographic Report Patient Name: EMMETTOctober : 1975 (49y 9m) Gender: F Study Date: 11/27/2024 03:12:58 PM Ht(Inch): 65 Wt(Lb): 184.97 BSA: 1.96 Model And Pattern Supervisor: RADHA Uribe Location: [facility] Order Provider:ILSA SESAY Heart Rate: 50 [...] LA Length 4C 5.34 cm MV Decel Cbtb032.97 msec [ 104.00 - 258.00 ] LA [...] PM CDT Narrative 12/25/2024 10:18 AM CDT [facility] [address], [address] [place] [address] CARDIAC EVENT MONITOR REPORT Patient Name: CHRISTINEOctober : 1975 (49y 9m) Gender: F Study Date: 11/20/2024 02:15:00 PM Ht(Inch): Wt(Lb): BSA: Tech: Location: [facility] Order Provider: ILSA SESAY BMI: Ref Provider: ILSA SESAY PROCEDURES: Event Report: [facility] MOBILE CARDIAC TELEMETRY EVENT MONITOR [[id number]]. Enrollment Period: 11/24/2024 - 12/23/2024. Patient Instructions: Patient picked up device from office and understand directions and use of the equipment. Location: [facility]. INDICATIONS: R55 Syncope and collapse, I10 Essential [...] Rate recorded was 45 BPM, 09:19 PM 56 and the Average Heart Rate was 58 [...] Procedure Note Guillermo Zheng MD - 12/25/2024 [facility] [address] [place] [address] CARDIAC EVENT MONITOR REPORT Patient Name: EMMETTOctober : 1975 (49y 9m) Gender: F Study Date: 11/20/2024 02:15:00 PM Ht(Inch): Wt(Lb): BSA: Tech: Location: [facility] Order Provider: ILSA SESAY BMI: Ref Provider: ILSA SESAY PROCEDURES: Event Report: [facility] MOBILE CARDIAC TELEMETRY EVENT MONITOR [[id number]]. Enrollment Period: 11/24/2024 - 12/23/2024. Patient Instructions: Patient picked up device from office and understanddirections and use of the equipment. Location: [facility]. INDICATIONS: R55 Syncope and collapse, I10 Essential [...] Ilsa Sesay MD CV CARDIAC SERVICES PROCE DUR Final Result * ECG 12 lead (11/20/2024 1:32 PM CDT) us Ilsa Sesay MD ECG ORDERABLES Edited Re sult - Final from Last 3 Months Insurance [employer] OOS BLUE ACCESS OOS Care Teams Client Administrator Relationship Specialty Start Date End Date Derrick Cain MD [address] [place] [address] PCP - General Internal Medicine 11/20/24 [facility] tile and marble setterPhotographer Lithographic 12/02/24 Reyes Sanchez DO [address] [place] [address] 12/17/24 Ubaldo Menezes MD [address] [place] [address] Referring Physician Orthopedic Surgery 01/08/25 estrella sams Secondary Kidney Coordinator 12/02/24
--- OUTSIDE RECORDS SUMMARY | 2025-01-22 11:23 | XMS_ITS | Clinical Summary ---
Author Organization [facility] [place] Address [address] [place] [place] [address] Phone Care Team Providers Care Health Safety Specialist Name Role Phone Derrick Cain MD Primary Care Provider [phone] Allergies Active Allergy Reactions Criticality Noted Date [...] taking differently:40 mg OralEVERY MORNING, Reported on 01/19/2025 naloxone HCl (Narcan) 4 MG/0.1ML Liquid 1 [place] by Nasal route as needed for Opioid Reversal. Administer in one nostril for symptoms of overdose (severe sleepiness, breathing problems, not responsive). Call 911. May repeat 1 spray in alternate nostril in 2-3 minutes if needed. 2 Each 08/18/19 25 Active Rizatriptan Benzoate 10 MG Tablet Take 1 Tablet by mouth once as needed for Headaches. May repeat in 2 hours in needed 10 Tablet 09/17/19 25 Active amLODIPine (NORVASC) 10 MG Tablet Take 10 mg by mouth nightly. 10/17/19 25 038 Active escitalopram (LEXAPRO) 10 MG Tablet Take 1 Tablet by mouth daily. 90 Tablet 12/09/19 25 Active topiramate (TOPAMAX) 100 MG Tablet Take 1 Tablet by mouth every 12 hours. 180 Tablet 12/09/19 25 Active tiZANidine (ZANAFLEX) 4 MG Tablet Take 1 Tablet by mouth 3 times daily. 90 Tablet 12/22/19 25 Active oxyCODONE-Aceta minophen (PERCOCET) 10-325 MG TabletIndicatio ns:Chronic neck pain,Chronic bilateral low back pain with right-sided sciatica Take 1 Tablet by mouth 2 times daily as needed for Moderate or more severe pain or Severe pain. 14 Tablet 01/20/20 25 Active temazepam (RESTORIL) 15 MG CapsuleIndicati ons:Primary insomnia Take 1 Capsule by mouth nightly as needed for Sleep. 7 Capsule 01/20/20 25 Active tirzepatide-mann ght management (Zepbound) 2.5 MG/0.5ML Solution Auto-injectorIn dications:Obesi ty (BMI 30-39.9),Essent ial hypertension, benign 2.5 mg by Subcutaneous route once a week. 2 mL 1 01/20/20 25 Active gabapentin (NEURONTIN) 300 MG Capsule Take 1 Capsule by mouth 2 times daily. 60 Capsule 3 10/20/19 25 025 Discontin ued(Med List Clean Up) temazepam (RESTORIL) 15 MG CapsuleIndicati ons:Primary insomnia Take 1 Capsule by mouth nightly as needed for Sleep. 30 Capsule 12/17/19 25 025 Discontin ued(Reord er) oxyCODONE-Aceta minophen (PERCOCET) 10-325 MG TabletIndicatio ns:Chronic neck pain,Chronic bilateral low back pain with right-sided sciatica Take 1 Tablet by mouth 2 times daily as needed for Moderate or more severe pain or Severe pain. 28 Tablet 12/22/19 25 025 Discontin ued(Reord er) oxyCODONE-Aceta minophen (PERCOCET) 10-325 MG TabletIndicatio ns:Chronic neck pain,Chronic bilateral low back pain with right-sided sciatica Take 1 Tablet by mouth 2 times daily as needed for Moderate or more severe pain or Severe pain. 28 Tablet 01/08/20 25 025 Discontin ued(Reord er) Active Problems Problem [...] Encounters Date Type Department Care Team Description 01/19/2025 3:40 PM CDT Office Visit [facility] [address] [place] [address] Derrick Cain MD Essential hypertension, benign (Primary Dx); Obesity (BMI 30-39.9); Chronic bilateral low back pain with right-sided sciatica; Dysthymic disorder; Migraine without aura and without status migrainosus, not intractable; Polycystic kidney disease, autosomal dominant Discharge Disposition: Discharged to home or Selfcare 01/19/2025 Travel 01/19/2025 Telephone [facility] [address] [place] [address] Derrick Cain MD [facility] [address] [place] [phone] Derrick Cain MD Medication Refill 01/06[facility] [address] [place] [place] [place] [address] Derrick Cain MD 12/21/2024 [facility] [address] [place] [place] [place] [address] Derrick Cain MD Medication Refill 12/15/2024 Telephone [facility] Internal Medicine [facility] [address] [place] [address] Derrick Cain MD Medication Refill 12/07/2024 Refill [facility] Internal [facility] [address] [place] [address] Derrick Cain MD 12/04/2024 Refill [facility] Internal [facility] [address] [place] [address] Derrick Cain MD Medication Refill 11/30/2024 Results Follow-Up [facility] Adult Pediatric Inpatient Virtual [address] [place] [address] Jigar Castellanos MD Pathology Surgical 11/27/2024 7:20 AM CDT Anesthesia Event [facility] Gi [facility] Periop [address] [place] [address] Nitesh Bland APRN, PAINT TESTER 11/27/2024 7:00 AM CDT - 11/27/2024 7:30 AM CDT Surgery [facility] Periop [address] [place] [address] Jigar Castellanos MD COLONOSCOPY- COLON POLYPECTOMY AT 15 CM (COLD SNARE) 11/27/2024 6:40 AM CDT Ancillary Procedure [facility] Main [address] [place] [address] Jigar Castellanos MD 11/27/2024 6:31 AM CDT - 11/27/2024 8:29 AM CDT Hospital Encounter [facility] GI Lab Preop/Pacu II [address] [place] [address] Jigar Castellanos MD Adenomatous rectal polyp Discharge Disposition: Discharged to home or Selfcare 11/27/2024 Travel 11/20/2024 [facility] [address] [place] [address] Jessy Lipscomb, PAC CULTURE, URINE 11/16/2024 [facility] [address] [place] [address] Derrick Cain MD Medication Refill 11/12/2024 Travel 11/10/[facility]24 [facility] [address] [place] [address] Jigar Castellanos MD 11/10/2024 [facility] [address] [place] [address] Derrick Cain MD Medication Refill 11/09/2024 [facility] [place] [address] Sylvie Luis APRN, MEDICAL COLLECTIONS REPRESENTATIVE Procedure; Appointment 10/29/2024 [facility] [address] [place] [address] Derrick Cain MD Medication Refill from Last 3 Months Family History Medical [...] Recorded Total Score - Questions 1-9 0 07/0 07/2024 Sexually Active Control Partners Comments Yes Comments No Sex and Gender Information Value Date Recorded Sex Assigned at Not on file Legal Sex Female 11:09 AM HAND TOOL LAPPER Gender Identity Not on file Sexual Orientation Not on file Last Filed Vital Signs Vital Sign Reading Time Taken Comments Blood Pressure 130/80 01/19/2025 2:30 PM CDT Pulse 90 01/19/2025 2:30 PM CDT Temperature 36.9 C (98.5 F) 01/19/2025 2:30 PM CDT Respiratory Rate 16 11/27/2024 8:15 AM CDT Oxygen Saturation 98% 01/19/2025 2:30 PM CDT Inhaled Oxygen Concentration - - Weight 88 kg (194 lb) 01/19/2025 2:30 PM CDT Height 165.1 cm (5' 5) 01/19/2025 2:30 PM CDT Body Mass Index 32.28 01/19/2025 2:30 PM CDT Plan of Treatment Upcoming Encounters Date Type Department Care Team (Late st Contact Info) Description 03/23/2025 8:40 AM CDT Office Visit [facility] [place] [address] [place] [address] Derrick Cain MD [address] [place] [address] Health Maintenance Due Date Last Done Comments Hepatitis C Virus (HCV) Screening 1974 TdaP Immunization 1974 Hepatitis B Immunization (1 of 3 - 19+ 3-dose series) 1993 Cologuard 2019 Immunochemical Fecal Occult Blood 2019 Pneumococcal Immunization (50+ years) (1 of 1 - PCV) 02/01/2024 Zoster Immunization (1 of 2) 02/01/2024 SARS-COV-2 Immunization (2023- season) 2024 09/09/2020, 09/01/2020, 08/09/2020 Influenza Immunization (#1) 2025 04/21/2023, 1 Mammogram 09/09/2025 09/09/2024, 12/0 11/2022, 02/16/2021, Additional [...] Procedure Name Priority Date/Time Associated Diagnosis Comments ORTHOPEDIC SURGERY CONSULT 12/31/2024 12:00 AM CDT PROTIME (PT) (PROTHROMBIN TIME) 12/26/2024 12:00 AM [...] Hx CKD stage 4 - Dx screen NM COLONOSCOPY FLX DX W/COLLJ SPEC WHEN PFRMD [...] CULTURE - MISCELLANEOUS 11/18/2024 12:00 AM CDT ERIKA SCREENING SONALI W IMPL DIGITAL W CAD W ANAIS Routine 09/09/2024 3:33 PM HAND TOOL LAPPER Breast cancer screening by mammogram from Last 3 Months or Most Recently Relevant to Health Maintenance Results * ORTHOPEDIC SURGERY CONSULT (12/31/2024 12:00 AM CDT) 12/31/2024 us Provider Scan GENERIC SCAN ORDERS CONSULT Yasmine l Result Performing Organization Address [facility] de Phone Number SCAN * APTT (PTT) (12/26/2024 12:00 AM CDT) 12/26/2024 us Provider Scan HEMATOLOGY ORDERABLES Final Resu lt Performing Organization Address [facility] de Phone Number SCAN * PROTIME (PT) (PROTHROMBIN TIME) (12/26/2024 12:00 AM CDT) INR 1.1 SCAN 12/26/2024 us Provider Scan HEMATOLOGY ORDERABLES Final Resu lt Performing Organization Address [facility] de Phone Number SCAN * MRI UPPER EXTREMITY GENERIC (12/04/2024 12:00 AM CDT) 12/04/2024 us Provider Scan IMG MR ORDERABLES Final Result Performing Organization Address [facility] de Phone Number SCAN * Pathology Surgical (11/27/2024 7:39 AM CDT) Case Report Surgical Pathology Report Case: [id number] Authorizing Provider: Jigar Castellanos MD Collected: 11/27/2024 07:39 AM Ordering Location: [facility] Received: 11/27/2024 08:52 AM [facility] Gi Lab Main Pathologist: Yohana Dacosta MD PhD Specimen: Colon, COLON POLYP AT 15 CM 11/30/2024 11:22 AM CDT [facility] FINAL DIAGNOSIS Colon polyp at 15 cm, polypectomy: - Tubular adenoma 11/30/2024 11:22 AM CDT [facility] at 1122 CDT Pre-Operative Diagnosis SCREENING COLON CANCER 11/30/2024 11:22 AM CDT [facility] Gross Description A. COLON POLYP [...] 7 minutes. KS/sb 11/30/2024 11:22 AM CDT [facility] Microscopic Description Microscopic examination was performed which supports the final diagnosis. All control tissues stained appropriately. 11/30/2024 11:22 AM CDT [facility] Tissue COLON STRUCTURE / Unknown 11/27/2024 7:39 AM CDT 11/27/2024 8:52 AM CDT us Jigar Castellanos MD PATHOLOGY/CYTOLOGY ORDERAB LES Final Result [facility] [address] [place] [address] * GI IMAGING - COLONOSCOPY (11/27/2024 6:37 AM CDT) us Jigar Castellanos MD IMG DIAGNOSTIC ORDERABLES Final Result * XR - CHEST (11/18/2024 12:00 AM CDT) 11/18/2024 us Provider Scan IMG DIAGNOSTIC ORDERABLES Final Result SCAN * CULTURE - MISCELLANEOUS (11/18/2024 12:00 AM CDT) 11/18/2024 us Provider Scan MICROBIOLOGY - GENERAL ORDERABLE S Final Result Performing Organization Address [facility] Phone Number SCAN * URINALYSIS (UA) RANDOM (11/18/2024 12:00 AM CDT) 11/18/2024 us Provider Scan URINE ORDERABLES Final Result Performing Organization [facility] Phone Number SCAN * CULTURE, URINE (11/18/2024 12:00 AM CDT) 11/18/2024 us Derrick Cain MD MICROBIOLOGY - GENERAL ORDGeovanna RABSB Final Result Performing Organization Address [facility] de Phone Number SCAN * CMP (COMPREHENSIVE METABOLIC PANEL) (11/18/2024 12:00 AM CDT) 11/18/2024 us Provider Scan CHEMISTRY ORDERABLES Final Resul t Performing Organization Address [facility] de Phone Number SCAN * COMPLETE BLOOD COUNT (CBC) WITH DIFF (11/18/2024 12:00 AM CDT) 11/18/2024 us Provider Scan HEMATOLOGY ORDERABLES Final Resu lt Performing Organization Address [facility] de Phone Number SCAN * ERIKA SCREENING SONALI W IMPL DIGITAL W CAD W ANAIS (09/09/2024 3:33 PM HAND TOOL LAPPER) Anatomical Region Laterality Modality breast Bilateral Mammography 09/09/2024 3:20 PM HAND TOOL LAPPER Narrative 09/24/2024 9:36 AM HAND TOOL LAPPER - ERIKA SCREENING SONALI W IMPL DIGITAL [...] exam. Electronically signed by: Kaleb holman/spencer:09/23/2024 22:44:46 Surgical Orderly(s): RT Franklin(Lorin)(M), [facility] letter sent: Normal Exam Reading location: [facility] Mammogram BI-RADS: Category 1: Negative Procedure Note Kaleb Carranza MD - 09/24/2024 - [facility] SCREENING SONALI W IMPL DIGITAL W CAD [...] next screening exam. Electronically signed by: Kaleb holman/penrad:09/23/2024 22:44:46 Surgical Orderly(s): RT Franklin(R)(M), [facility] letter sent: Normal Exam Reading location: [place] Mammogram BI-RADS: Category 1: Negative us Derrick Cain MD IMG MAMMO ORDERABLES Final Result from Last 3 Months or Most Recently Relevant to Health Maintenance Insurance [facility] Care Teams Health Safety Specialist Relationship Specialty Start Date End Date Derrick Cain MD [address] [place] [address] PCP - General Internal Medicine 08/18/24
--- OUTSIDE RECORDS SUMMARY | 2025-01-22 11:23 | XMS_ITS | Encounter Summary ---
Author Organization [facility] Address [address] [place] [address] Phone Care Team Providers Care Sales Development Executive Name Role Phone Derrick Cain MD Primary Care Provider [phone] Encounter Details Date Type Department Care Team (Late st Contact Info) Description 01/19/2025 Telephone [facility] [place] [address] [place] [address] Derrick Cain MD [address] [facility] [place] [address] Social History Tobacco Use Types Packs/Day Years Used Date Smoking Tobacco: Never Passive Smoke Exposure: Never Smokeless Tobacco: Never Alcohol Use Standard Drinks/Week Comments Never 0 (1 standard drink = 0.6 oz pur e alcohol) PHQ-2 Answer Date Recorded Total Score - Questions 1-9 0 07/2024 Sexually Active Control Partners Comments Yes Comments No Sex and Gender Information Value Date Recorded Sex Assigned at Not on file Legal Sex Female 11:09 AM BRICK WHEELER Gender Identity Not on file Sexual Orientation Not on file documented as of this encounter Functional Status * Question Answer Date of Assessment Author Little interest or pleasure in doing things Not at all 01/19/2025 2:31 PM Mercedes Quintero CMA Feeling down, depressed, or hopeless Not at all 01/19/2025 2:31 PM Mercedes Quintero CMA * Over the past 2 weeks, how often have you been bothered by any of the following problems? Question Answer Date of Assessment Author Patient Health Questionnaire -2 Score 0 01/19/2025 2:31 PM CDT Mercedes Adan CMA documented as of this encounter Miscellaneous Notes * Telephone Encounter - Derrick Cain MD - 01/19/2025 8:48 AM CDT 1 week rx sent. May give appt. For this Sat or . * Telephone Encounter - Jeana Canales RN - 01/19/2025 8:47 AM CDT There was a cancellation, pt coming in today now Please disregard * Telephone Encounter - Mercedes Adan CMA - 01/19/2025 8:13 AM CDT Req r/f oxycodone Temazepam Pharm: kei/ diana Patient says she is completely out and is in so much pain and needs both medications so she can sleep. Patient did make another appt. But it has to be rescheduled. documented in this encounter Plan of Treatment Upcoming Encounters Date Type Department Care Team (Late st Contact Info) Description 03/23/2025 8:40 AM CDT [facility] [place] [address] [place] [address] Derrick Cain MD [address] [place] [address] documented as of this encounter Visit Diagnoses Diagnosis Chronic neck pain Cervicalgia Chronic bilateral low back pain with right-sided sciatica Primary insomnia Persistent disorder of initiating or maintaining sleep documented in this encounter Additional Health Concerns Assessment Noted Time PHQ-9 Depression Total Score: 0 01/20/20 25 2:31 PM CDT documented as of this encounter Care Teams Sales Development Executive Relationship Specialty Start Date End Date Derrick Cain MD [address] [place] [address] PCP - General Internal Medicine 08/18/24 documented as of this encounter
--- OUTSIDE RECORDS SUMMARY | 2025-01-22 11:23 | XMS_ITS | Clinical Summary ---
Author Organization [facility] Address [address] [place] [address] Care Team Providers Care Used Car Renovator Name Role Phone Derrick Cain MD Primary Care Provider [phone] Judith Hernandez RN Unavailable Unavailabl e Reyes Sanchez DO Unavailable [phone] Ubaldo Menezes MD Unavailable [phone] Allergies Active Allergy Reactions Criticality Noted Date [...] Type Department Care Team Description 01/14/2025 Documentation [facility] Transplant Kidney [address] [facility] [address] Mailstop 90-85-083 [place] [address] Paula Rogers 01/08/2025 Documentation [facility] Transplant Kidney [address] [place] [address] 34[address] Mailstop 90-27-213 [place] [address] Paula Rogers Evaluation Scheduling 01/08/2025 Telephone [facility] Transplant Kidney [address] [place] [address] [address] 90-67-095 [place] [address] Paula Rogers 01/08/2025 Telephone [facility] Transplant Kidney [address] [place] [address] 34[address] Mailstop 90-89-460 [place] [address] Estrella Sams RN 12/28/2024 Telephone [facility] Cardiology [facility] Medical Office Building [address] [place] [address] Ilsa Sesay MD Heart monitor results; Scheduling Testing/Treatment (Stress Test scheduling) 12/17/2024 Documentation [facility] Transplant Kidney [address] [facility] [address] Mailstop 74-80-955 [place] [address] Paula Rogers 12/11/2024 Documentation [facility] Transplant Kidney [address] [facility] [address] Mailstop 90-02-912 [place] [address] Paula Rogers 12/02/2024 Telephone [facility] Transplant Kidney [address] [facility] [address] Mailstop 90-36-784 [place] [address] Paula Rogers. Referral - Kidney Txp 12/01/2024 Telephone [facility] Transplant Kidney [address] [facility] [address] Mailstop 71-07-360 [place] [address] Elizabeth Craolina Referral - Kidney Txp 11/27/2024 3:00 PM CDT Ancillary Procedure [facility] [address] [place] [address] 3 [address] [place] [phone] Syncope and collapse; Essential hypertension; Sinus bradycardia; Dizziness 11/25/2024 Documentation [facility] Transplant Kidney [address] [facility] [address] Mailop 72-44-074 [place] [address] Paula Rogers 11/20/2024 2:15 PM CDT Ancillary Procedure [facility] [address] [place] [address] [address] [place] [address] Syncope and collapse; Essential hypertension; Sinus bradycardia; Dizziness 11/20/2024 1:30 PM CDT Office Visit [facility] Cardiology [address] [place] [address] [facility] [address] [place] [phone] Ilsa Sesay MD Syncope and collapse (Primary Dx); Essential hypertension; Sinus bradycardia; Dizziness 11/20/2024 Results Follow-Up [facility] Cardiology [address] [place] [address] [address] [place] [phone] Ilsa Sesay MD ECG 12 lead, Transthoracic Echo (TTE) Complete W Doppler/CF, MCT Mobile Cardiac Telemetry Event Monitor 11/19/2024 Telephone [facility] Cardiology [address] [facility] 8th [place] [address] [place] [address] Yomaira French 11/12/2024 Telephone [facility] Transplant Kidney [address] [facility] [address] Mailstop 99-73-303 [place] [address] JuanjoseFang Referral - Kidney Txp 11/03/2024 Documentation [facility] Transplant Kidney [address] [facility] [address] Mailstop 03-59-536 [place] [address] OrElizabeth castillo 11/03/2024 Telephone [facility] Transplant Kidney [address] [facility] [address] Mailstop 38-13-263 [place] [address] Ortbals, Elizabeth Referral - Kidney Txp from Last 3 Months Immunizations Immunization Administration Dates Next Due Influenza, [...] Vaccine (1 of 2) 02/01/2024 Covid-19 Vaccine (3 - 2023-2 5 season) 2024 09/09/2020, 08/09/2020 Influenza Vaccine (#1) 2025 , 04/21/2022 Breast Cancer Screening-Mammogram 09/09/2025 09/09/2024, 09/09/2024, [...] CDT Narrative 11/30/2024 3:47 AM CDT Heart [facility] Cardiac Diagnostic Lab [address], [address] [place] [address] Transthoracic Echocardiographic Report Patient Name: [birth year] : 1975 (49y 9m) Gender: F Study Date: 11/27/2024 03:12:58 PM Ht(Inch): 65 Wt(Lb): 184.97 BSA: 1.96 Windows Admin: RADHA Uribe Location: [facility] Order [...] Casillas MD - 11/30/2024 [facility] Cardiac Diagnostic Lab [address] , [address] [place] [address] Transthoracic Echocardiographic Report Patient Name: October : 1975 (49y 9m) Gender: F Study Date: 11/27/2024 03:12:58 PM Ht(Inch): 65 Wt(Lb): 184.97 BSA: 1.96 Windows Admin: RADHA Uribe Location: [facility] Order Provider:ILSA SESAY Heart Rate: 50 [...] LA Length 4C 5.34 cm MV Decel Jdea463.97 msec [ 104.00 - 258.00 ] LA [...] PM CDT Narrative 12/25/2024 10:18 AM CDT [facility] Cardiac Diagnostic Lab [address] [place] [address] CARDIAC EVENT MONITOR REPORT Patient Name: October : 1975 (49y 9m) Gender: F Study Date: 11/20/2024 02:15:00 PM Ht(Inch): Wt(Lb): BSA: Tech: Location: I Order Provider: ILSA SESAY BMI: Ref Provider: ILSA SESAY PROCEDURES: Event Report: [facility] MOBILE CARDIAC TELEMETRY EVENT MONITOR [[id number]]. Enrollment Period: 11/24/2024 - 12/23/2024. Patient Instructions: Patient picked up device from office and understand directions and use of the equipment. Location: [facility]. INDICATIONS: R55 Syncope and collapse, I10 [...] Rate recorded was 45 BPM, 09:19 PM 11/24 and the Average Heart Rate was 58 [...] The PDF can be found in the [facility] Patient chart. Please go to the Cardiology tab, click on the holter or event exam. Scroll to bottom where the ORDER-LEVEL Documents reside and click the blue link to the pdf. Electronically Signed By: Guillermo Zheng MD 12/25/2024 10:03:00 AM CDT Electronically Signed By: Guillermo Zheng MD 12/25/2024 10:03:00 AM CDT Procedure Note Guillermo Zheng MD - 12/25/2024 [facility] Cardiac Diagnostic Lab [address] [place] [address] CARDIAC EVENT MONITOR REPORT Patient Name: October : 1975 (49y 9m) Gender: F Study Date: 11/20/2024 02:15:00 PM Ht(Inch): Wt(Lb): BSA: Tech: Location: I Order Provider: ILSA SESAY BMI: Ref Provider: ILSA SESAY PROCEDURES: Event Report: [facility] MOBILE CARDIAC TELEMETRY EVENT MONITOR [[id number]]. Enrollment Period: 11/24/2024 - 12/23/2024. Patient Instructions: Patient picked up device from office and understanddirections and use of the equipment. Location: [facility]. INDICATIONS: R55 Syncope and collapse, I10 [...] The PDF can be found in the [facility] Patient chart. Please go to theCardiology tab, click on the holter or event exam. Scroll to bottom where the ORDER-LEVELDocuments reside and click the blue link to the pdf. Electronically Signed By: Guillermo Zheng MD 12/25/2024 10:03:00 AM CDT Electronically Signed By: Guillermo Zheng MD 12/25/2024 10:03:00 AM CDT Ilsa Sesay MD [facility] Final Result * ECG 12 lead (11/20/2024 1:32 PM CDT) us Ilsa Sesay MD ECG ORDERABLES Edited Re sult - Final from Last 3 Months Insurance [employer] O[employer] Care Teams Used Car Renovator Relationship Specialty Start Date End Date Derrick Cain MD [address] [place] [address] PCP - General Internal Medicine 11/20/24 Judith Hernandez gear setterSoft Work Cigar Machine Operator 12/02/24 Reyes Sanchez DO [address] [place] [address] 12/17/24 Ubaldo Menezes MD [address] [facility] [address] [place] [address] Referring Physician Orthopedic Surgery 01/08/25 estrella sams Secondary Kidney Coordinator 12/02/24
--- OUTSIDE RECORDS SUMMARY | 2025-01-22 11:23 | XMS_ITS ---
Author Organization [facility] al Address [address] [place] [address] Care Team Providers Care Health Care Analyst Name Role Phone Derrick Cain MD Primary Care Provider [phone] Judith Hernandez RN Unavailable Unavailabl e Reyes Sanchez DO Unavailable [phone] Ubaldo Menezes MD Unavailable [phone] Transplant Episode Kidney Candidate [facility] ([place], [place]) - [facility] Evaluation began on 01/08/2025 Marked as Active on 01/08/2025 Reason: Evaluation - Limited Kidney CoordinatorJudith Hernandez RN Phone: N/A Fax: N/A Email: N/A Scores Score Value Updated Exceptions/Reas ons CPRA Not available EPTS (Calc) 16 01/22/2025 [place] Organ Diagnosis Organ Primary Contributory Kidney Polycystic Kidneys Care Team Name Role Phone Fax Email Judith Hernandez RN Kidney Coordinator N/A N/A N/A Paula Rogers Primary Supervisor [employer] N/A N/A N/A Rachel Blount Black Leather Buffer [phone] N/A N/A Reyes Sanchez DO Referring Physician [phone] N/A Events Pre-Transplant Referred: 11/03/2024 Evaluation began: 01/08/2025
--- OUTSIDE RECORDS SUMMARY | 2025-01-22 11:23 | XMS_ITS | Patient Health Record ---
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 The patient has three children and plans to get on 10/11/24. The patient denies tobacco, alcohol, or illicit drug abuse. 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 confirmed Lumbosacral spondylosis without myelopathy (89388434) Problem Radiculopathy, cervical region (M54.12) Active confirmed Cervical radiculopathy (64202010) Problem senior living (current) use of opiate analgesic (Z79.891) Active confirmed High risk drug monitoring status (700313895) Problem Lumbar radiculopathy (M54.16) Active confirmed Lumbar radiculopathy (114323306) Problem Other intervertebral disc degeneration, lumbar region [...] Location Date Provider Diagnosis [facility] [address] [place] [phone] 10/08/2024 Jamey Stduniaick Lumbar radiculopathy M54.16 ; Other intervertebral disc degeneration, lumbar region with discogenic back pain and lower extremity pain M51.362 ; Spondylosis without myelopathy or radiculopathy, lumbar region M47.816 ; Radiculopathy, cervical region M54.12 ; Pain in left shoulder M25.512 ; senior living (current) use of opiate analgesic Z79.891 and [...] in left shoulder (ICD-10 - M25.512) 10/08/2024 senior living (current) use of opiate analgesic (ICD-10 - Z79.891) The patient was given the contact information of pain specialists in the area who offer chronic opioid medication management. 10/08/2024 Fear of injections and transfusions (ICD-10 - F40.231) 10/08/[address] Gomez for your kind referral and for involving me in the care of this patient. PLAN OF TREATMENT No Information Insurance Providers Payer Name Payer Address Payer Phone Subscriber Number Group Number Insured Name Patient Relationship to Insured Coverage Start Date Coverage End Date [facility] [address] [place] [phone] [id number] October Self - patient is the insured MEDICAL (GENERAL) HISTORY Medical History History ICD Code Insomnia Migraine Hypertension Polycystic kidney disease Depression Anxiety Surgical History Surgery Date(Month/Year) C5-7 ACDF 2016
--- NOTE | 2025-01-22 11:25 | ECG_ITS ---
Test Date: 2025-01-22 11:28:30 Measurements Intervals [place] Rate: 50 P: 38 NH: 164 QRS: -11 QRSD: 101 T: 0 QT: 407 QTc: 374 Interpretive Statements SINUS BRADYCARDIA no change compared to prior EKG Electronically Signed On 01-22-2025 12:53:11 CDT by Francis Mendoza M.D.
[2025-01-22 11:38] LABS: Hematocrit 36.6 % (37.0-47.0); Hemoglobin 11.6 g/dL (12.0-15.0); Immature Granulocyte Percent A 0.5 % (0-0.5); Lymphocytes Absolute Auto 2.56 K/mm3 (0.9-3.2); Mean Corpuscular HGB Conc 31.7 g/dl (32-36); Mean Corpuscular Hemoglobin 29.6 pg (26-34); Mean Corpuscular Volume 93.4 fl (80-100); Nucleated Red Blood Cells Absolute Auto 0.000 K/mm3 (0.0-0.012); Nucleated Red Blood Cells Perc 0.0 % (0.0-0.2); Platelet Count Result 266 k/mm3 (150-375); Red Blood Count 3.92 M/mm3 (4.2-5.4); White Blood Count 7.6 K/mm3 (4.5-10.0)
[2025-01-22 11:46] LABS: Alanine Aminotransferase 12 U/L (6-35); Albumin Level 4.2 g/dL (3.5-5.1); Alkaline Phosphatase 65 U/L (38-126); Anion Gap 9 mmol/L (4-12); Aspartate Amino Transferase 23 U/L (14-36); Bilirubin,Total 0.3 mg/dL (0.2-1.3); Blood Urea Nitrogen 26 mg/dL (7-17); Calcium 9.5 mg/dL (8.4-10.2); Carbon Dioxide 23 mmol/L (22-30); Chloride 109 mmol/L (98-107); Estimated CRCL calculation 27 ml/min; Estimated Glomerular Filt Rate 21; Glucose 100 mg/dL (65-110); Lipase 113 U/L (23-300); Potassium 4.6 mmol/L (3.4-5.0); Sodium 141 mmol/L (137-145); Total Protein 7.6 g/dL (6.3-8.2)
[2025-01-22 11:49] LABS: INR 1.0; Prothrombin Time 13.0 Seconds (11.1-14.7)
[2025-01-22 11:50] LABS: Partial Thromboplastin Time 26.6 Seconds (22.3-36.8)
--- NOTE | 2025-01-22 11:54 | ED_ITS ---
HPI - Chest Pain General Chief Complaint: Chest Pain Stated Complaint: CHEST AND ARM PAIN Time Seen by Provider: 01/22/25 11:24 Source: patient Mode of arrival: ambulatory Limitations: no limitations History of Present Illness HPI narrative: Patient is a 49-year-old female, with PMH of polycystic kidney disease, who presents the ED with report of left-sided chest pain. Patient reports she woke up this morning and was laying in bed, when she began having pain throughout her left-sided chest, radiating into her neck, arm, through to her back. States pain has been constant since the onset. Worse with deep breathing. She has been feeling mildly short of breath. Otherwise denies aggravating or alleviating factors to pain. Has not taken anything for pain. Denies recent cough or cold symptoms, fevers, pain or swelling in her legs. Does note that she underwent left rotator cuff repair last month. Performed by Dr. Menezes. She does not feel pain today is related to this. Patient has history of hypertension. Denies history of previous heart disease, hyperlipidemia, diabetes, smoking history. Denies previous history of blood clots. No family history of heart disease. Related Data Home Medications ?Medication ?Instructions ?Recorded ?Confirmed ?Last Taken ?Type amlodipine 2.5 mg tablet 2.5 mg PO DAILY 12/09/24 12/24/24 Unknown History telmisartan 20 mg tablet 20 mg PO DAILY 12/09/24 12/24/24 Unknown History gabapentin 300 mg capsule 300 mg PO BID 12/24/24 12/24/24 Unknown History oxycodone-acetaminophen 10 mg-325 1 tablet PO BID 12/24/24 12/31/24 12/31/24 History mg tablet temazepam 15 mg capsule 15 mg PO HS 12/24/24 12/24/24 Unknown History tizanidine 4 mg tablet 4 mg PO Q8H 12/24/24 12/24/24 Unknown History Allergies Allergy/AdvReac Type Severity Reaction Status Date / Time hydrocodone (From [place]) Allergy Itching Verified 12/31/24 11:12 NSAIDS (Non-Steroidal AdvReac Severe Other Verified 12/31/24 11:12 Anti-Inflamma Review of Systems 2 Review of Systems: All systems reviewed & are unremarkable except as noted in HPI. All systems reviewed & are unremarkable except as noted in HPI and below PMFSH Past Medical History Medical History Hypertension Chronic kidney disease, stage 4 (severe) Polycystic kidney disease Social History Social History Smoking status: Never smoker Do You Feel Safe in your Home?: Yes Lack of Transportation: No Lack of Food: Never True Current Housing: I Have Housing Concerned About Future Housing: No Difficulty Paying Gas/Electric Bills: No Difficulty Paying for Meds: No Currently Unemployed: No Education: High School Diploma/GED Difficulty w/ Childcare or Family Care: No Living arrangements: with family Spiritual care concerns: No Exam 2 Narrative: GENERAL: Anxious/tearful/uncomfortable appearing, obese with BMI of 31.2, non- toxic, in mild acute distress. HEAD: Normocephalic, atraumatic. RESPIRATORY: Airway patent, respirations nonlabored. Limited effort d/t pain with deep inspiration. No appreciable focal lung sounds. Clear to auscultation bilaterally, no rales, rhonchi, wheezing. CARDIOVASCULAR: Regular rate and rhythm without murmurs, rubs, or gallops. ABDOMINAL: Soft, nontender, nondistended. Normoactive BS. MUSCULOSKELETAL: Moves all extremities. No gross deformities. No peripheral edema. No calf tenderness. No reproducible tenderness along chest wall, upper thoracic region. SKIN: Warm, dry, normal color. NEURO: A&O X3. Speech clear. Cranial nerves II-XII grossly intact. Steady gait. No ataxic movements. PSYCHIATRIC: Appropriate mood and affect. Normal interaction. Course Vital Signs Vital signs: Vital Signs Temperature 97.9 F 01/22/25 11:34 Pulse Rate 64 01/22/25 11:34 Respiratory Rate 16 01/22/25 11:34 Blood Pressure 130/87 01/22/25 11:34 Pulse Oximetry 100 01/22/25 11:34 Oxygen Delivery Room Air 01/22/25 11:34 Temperature 97.8 F 01/22/25 16:00 Pulse Rate 58 L 01/22/25 16:00 Respiratory Rate 16 01/22/25 16:00 Blood Pressure 126/64 01/22/25 16:00 Pulse Oximetry 100 01/22/25 16:00 Oxygen Delivery Room Air 01/22/25 11:38 MDM - Chest Pain MDM Narrative Medical decision making narrative: Patient presented to ED with left-sided chest pain, shortness of breath, pleuritic pain that began this morning. Vital signs are stable upon arrival. Patient very anxious, tearful appearing upon my initial evaluation. Oxygen stable on room air. EKG with sinus bradycardia, no concerning ST changes. Possible S1 Q3 T3. Baseline troponin is undetectable. HEART score =3 Attempted nitroglycerin sublingual. Patient received 1 nitro, denied change in her pain. Reported headache. Declined further nitro. Given dose of morphine with improvement of pain. Basic laboratory studies without leukocytosis, very mild anemia. Creatinine 2.43. Appears fairly consistent with previous records. History of polycystic kidney disease. She is currently undergoing workup for possible kidney transplant. Normal LFTs and lipase. BNP very minimally elevated at 142. Initial chest x-ray was clear. 3HR trop undetectable. Given patient's recent surgery, left-sided chest pain with pleuritic pain, shortness of breath, plan to rule out PE. Patient unable to receive CTA of chest d/t kidney function. NM VQ scan was performed and showing intermediate probability for PE. Does show: There is relatively homogeneous perfusion throughout the lungs with a single segmental mismatch within the superior posterior segment of the left lower lobe. I feel this is consistent with patient's clinical picture/pain here, provoking factor of recent surgery, very suspicious for PE. Discussed lab and imaging findings extensively with patient and at bedside. Discussed plan to start anticoagulation for PE. Patient otherwise has been very stable throughout ED stay. Vital signs have been consistently stable. She has not required any supplemental oxygen. There is no evidence of right heart strain. No evidence of main pulmonary artery perfusion defect. Showing only in single segmental area. Utilized shared decision-making with patient/family regarding discharge home versus admission for further evaluation. Discussed risks and benefits of both. Patient would prefer to go home on anticoagulation. She does feel comfortable doing so. Discussed risks of being started on blood thinner and strict return precautions regarding this. Patient given 24 hour dose of Lovenox in the ED (1.5mg/kg), Eliquis starter pack sent to pharmacy for patient to begin tomorrow. Confirmed with UpToDate, no renal dose adjustments required in treating for thromboembolism. Discussed return precautions. Patient voiced understanding. In agreement with plan. Discharged in stable condition. Vital signs stable at time of D/C. Medical Records Data Attestation: I reviewed the patient's medical records. Lab Data Attestation: I reviewed the patient's lab results. 01/22/25 11:31 01/22/25 11:31 Labs: Lab Results 01/22/25 01/22/25 Range/Units 11:31 14:20 WBC 7.6 (4.5-10.0) K/mm3 RBC 3.92 L (4.2-5.4) M/mm3 Hgb 11.6 L (12.0-15.0) g/dL Hct 36.6 L (37.0-47.0) % MCV 93.4 (80-100) fl MCH 29.6 (26-34) pg MCHC 31.7 L (32-36) g/dl RDW 12.9 (11.5-14.5) % Plt Count 266 (150-375) k/mm3 MPV 9.3 (7.4-10.4) fl Immature Gran % (Auto) 0.5 (0-0.5) % Neut % (Auto) 55.9 (45.5-73.1) % Lymph % (Auto) 33.7 (18.3-44.2) % [place] % (Auto) 7.0 (2.6-8.5) % Eos % (Auto) 2.5 (0-4.4) % Baso % (Auto) 0.4 (0.2-1.2) % Lymph # (Auto) 2.56 (0.9-3.2) K/mm3 [place] # (Auto) 0.5 (0.1-0.6) K/mm3 Eos # (Auto) 0.2 (0-0.3) K/mm3 Baso # (Auto) 0.0 (0.0-0.1) K/mm3 Abs Immat Gran (auto) 0.04 H (0.00-0.031) K/mm3 Absolute Neuts (auto) 4.3 (1.3-6.7) K/mm3 Absolute Nucleated RBC 0.000 (0.0-0.012) K/mm3 Nucleated RBC % 0.0 (0.0-0.2) % PT 13.0 (11.1-14.7) Seconds INR 1.0 APTT 26.6 (22.3-36.8) Seconds Sodium 141 (137-145) mmol/L Potassium 4.6 (3.4-5.0) mmol/L Chloride 109 H (98-107) mmol/L Carbon Dioxide 23 (22-30) mmol/L Anion Gap 9 (4-12) mmol/L BUN 26 H (7-17) mg/dL Creatinine 2.43 H (0.7-1.0) mg/dL Estim Creat Clear Calc 27 ml/min Estimated GFR 21 L (59 - ) Glucose 100 (65-110) mg/dL Calcium 9.5 (8.4-10.2) mg/dL Total Bilirubin 0.3 (0.2-1.3) mg/dL AST 23 (14-36) U/L ALT 12 (6-35) U/L Alkaline Phosphatase 65 (38-126) U/L Troponin I < 0.012 < 0.012 (0.000-0.034) ng/mL NT-Pro-B Natriuret Pep 142 H (19.9-100) pg/mL Total Protein 7.6 (6.3-8.2) g/dL Albumin 4.2 (3.5-5.1) g/dL Lipase 113 (23-300) U/L Imaging Data Attestation: I personally reviewed and interpreted this imaging study as follows: Radiologist's impression: ITS Impressions Chest X-Ray 01/22/25 12:56 IMPRESSION: No focal infiltrate or effusion. Pulmonary Perfusion Imaging 01/22/25 15:06 IMPRESSION: 1. Intermediate probability for pulmonary embolism. ECG Data EKG #1: Attestation: I personally reviewed and interpreted this ECG as follows: ECG completion date: 01/22/25 ECG completion time: 11:28 EKG Interpretation: bradycardia (50), sinus rhythm and no ST changes Discharge Plan Discharge Clinical Impression: Pulmonary embolism Qualifiers: Pulmonary embolism type: single subsegmental (without acute cor pulmonale) Q ualified Code(s): I26.93 - Single subsegmental thrombotic pulmonary embolism without acute cor pulmonale CKD (chronic kidney disease) Qualifiers: Chronic kidney disease stage: unspecified stage Qualified Code(s): N18.9 - Chronic kidney disease, unspecified Patient Disposition: Home Condition: Stable Instructions: Antibiotic Form, Chest Pain (ED), Pulmonary Embolism (ED), Safe Use of Anticoagulants (ED), Blood Thinners (ED) Additional Instructions: You are being treated for a pulmonary embolism, or blood clot in your lungs. You will need to start Eliquis prescription tomorrow morning. Take 10 mg twice daily for 1 week, followed by 5 mg twice daily. You will need to follow-up closely with your primary care doctor for further evaluation management of this. Call office first thing Saturday. Also recommend discussing this with your [facility]. You are being started on a blood thinner. This puts you at risk for increased bleeding. If you ever fall and hit her head, it is recommended that you come to the ED to be evaluated and receive CT imaging of your brain to rule out intracranial bleeding. Limit alcohol use while on Eliquis as this can put you at risk for increased falls. If you developed significant nosebleeds, blood in your urine, rectal bleeding, dark black stools, is recommended to return to the ED for evaluation of this. Additionally, return to the ED if you experience worsening or severe shortness of breath, worsening or severe chest pain, feeling dizzy or lightheaded, passing out, unable to keep down food or drink, persistent fevers, or any other symptoms of concern. Patient Language: Khmer Prescriptions: New Eliquis DVT-PE Treat 30D Start 5 mg (74 tabs) tablets,dose pack See Rx Instructions .ROUTE .COMPLEX Qty: 74 0RF Rx Instructions: orally per package directions No Action amlodipine 2.5 mg tablet 2.5 mg PO DAILY telmisartan 20 mg tablet 20 mg PO DAILY ondansetron 4 mg tablet,disintegrating 4 mg PO Q6H PRN (Reason: nausea and vomiting) Qty: 10 0RF meclizine 25 mg tablet 25 mg PO TID PRN (Reason: dizziness) Qty: 20 0RF temazepam 15 mg capsule 15 mg PO HS oxycodone-acetaminophen 10-325 mg tablet 1 tablet PO BID tizanidine 4 mg tablet 4 mg PO Q8H gabapentin 300 mg capsule 300 mg PO BID oxycodone-acetaminophen 5-325 mg tablet 1 - 2 tablet PO Q4-6H MDD 8 PRN (Reason: pain) Qty: 30 0RF Follow-up/Referrals: Russ Snow, [Primary Care Provider] - Time of Disposition: 15:56 Quality HEART score for chest pain patients History: moderately suspicious ECG: normal Age: > 45 and < 65 years Risk factors: 1 or 2 risk factors Troponin: < or = to 1x normal limit Heart score: 3
[2025-01-22] MEDS: NITROGLYCERIN SL 0.4 MG TABLET SUBLINGUAL (11:56)
[2025-01-22 12:21] LABS: NT Pro B Type Natriuretic Pept 142 pg/mL (19.9-100); Troponin I < 0.012 ng/mL (0.000-0.034)
[2025-01-22] MEDS: ONDANSETRON INJ 4 MG/2 ML VIAL IV PUSH (12:41)
[2025-01-22] MEDS: SODIUM CHLORIDE 0.9% IV 1,000 ML 999 ML IV CONT (12:41)
[2025-01-22] MEDS: MORPHINE SULFATE (*CRX) 4 MG/ML INJ IV PUSH (12:41)
[2025-01-22 14:56] LABS: Troponin I < 0.012 ng/mL (0.000-0.034)
[2025-01-22] MEDS: ENOXAPARIN 80 MG/0.8 ML SYRINGE 127 MG SUB-Q (16:03)
== END 2025-01-22 16:31 | disposition home or self-care (01) ==
PROVIDERS: Emergency Provider Physician Assistant; PCP Family Medicine
DX: I26.93 Single subsegmental thrombotic pulmonary embolism without acute cor pulmonale (principal); I12.9 Hypertensive chronic kidney disease with stage 1 through stage 4 chronic kidney disease, or unspecified chronic kidney disease; N18.4 Chronic kidney disease, stage 4 (severe)
CPT/HCPCS: 36415; 71045; 78582; 80053; 83690; 83880; 84484; 85025; 85610; 85730; 93005; 96361; 96372; 96374; 96375; 99284; A9270; A9540; A9558; J1650; J2270; J2405; J7030